=== PATIENT | male | born 1950 | race Caucasian/White ===

== ENCOUNTER 2017-05-09 19:09 | Inpatient (IN) | payer BC, MEDICARE, OTHER ==
[2017-05-09] MEDS ORDERED: Amiodarone 360 MG IVPREMIX* 360 MG/200 ML BAG IV ONE (19:51)
[2017-05-09 19:58] LABS: Hematocrit 46 % (42-52); Hemoglobin 15.6 g/dl (14.0-18.0); Mean Corpuscular HGB Conc 34 g/dl (31-36); Mean Corpuscular Hemoglobin 30 pg (27-31); Mean Corpuscular Volume 87 fL (80-94); Mean Platelet Volume 10 um3 (7.4-10.4); Red Blood Count 5.23 10^6/ul (4.0-5.4); Red Cell Distribution Width 15 % (10.5-15); White Blood Count 11.5 10^3/ul (3.5-10.8)
[2017-05-09 20:10] LABS: BUN/Creatinine Ratio 14.1 (8-20); Calcium 9.3 mg/dL (8.6-10.3); EGFR African American 106.2 (>60); EGFR Non-African American 82.6 (>60); Globulin 3.5 g/dL (2-4); Magnesium 1.9 mg/dL (1.9-2.7); Potassium 3.8 mmol/L (3.5-5.0); Total Bilirubin 0.5 mg/dL (0.2-1.0); Total Protein 7.5 g/dL (6.4-8.9)
[2017-05-09 20:12] LABS: Troponin I 0.01 ng/mL (<0.04)
--- NOTE | 2017-05-09 20:14 | ED ---
Jenni Maldonado Edward, scribed for Elder Marquez MD on 05/09/17 at 1936 . Dizziness - HPI Summary HPI Summary: 66 y/o male BIBA from [facility] c/o of dizzy spells for 3-4 days. Each spell lasts around 5-10 seconds. Patient has had 2-3 episodes today of around 2-3 seconds. Patient has never had these symptoms before. No relevant PMHx. Patient is a light every day smoker. - History Of Current Complaint Chief Complaint: EDDizziness Stated Complaint: XFER FROM [facility] Hx Obtained From: Patient Onset/Duration: Still Present Timing: Intermittent Episode Lasting - 5-10 seconds previously, 2-3 seconds today Character: Dizzy - Allergies/Home Medications Allergies/Adverse Reactions: Allergies Allergy/AdvReac Type Severity Reaction Status Date / Time No Known Allergies Allergy Verified 05/09/17 20:04 PMH/Surg Hx/FS Hx/Imm Hx Previously Healthy: Yes Cardiovascular History: Denies: Hx Myocardial Infarction Sensory History: Denies: Hx Deafness Opthamlomology History: Denies: Hx Legally Blind - Surgical History Surgery Procedure, Year, and Place: App2001 Infectious Disease History: Denies: Traveled Outside the [place] in Last 30 Days - Social History Hx Tobacco Use: Yes Smoking Status (MU): Light Every Day Tobacco Smoker Review of Systems Constitutional: Negative Eyes: Negative ENT: Negative Cardiovascular: Negative Respiratory: Negative Gastrointestinal: Negative Genitourinary: Negative Musculoskeletal: Negative Skin: Negative Neurological: Other - Intermittent dizziness Psychological: Normal All Other Systems Reviewed And Are Negative: Yes Physical Exam Triage Information Reviewed: Yes Vital Signs On Initial Exam: Initial Vitals Temp Pulse Resp BP Pulse Ox 98 F 87 20 156/84 95 05/09/17 19:26 05/09/17 19:26 05/09/17 19:26 05/09/17 19:26 05/09/17 19:26 Vital Signs Reviewed: Yes Appearance: Positive: No Pain Distress, Obese Skin: Positive: Warm Head/Face: Positive: Normal Head/Face Inspection Eyes: Positive: EOMI, [place]AS[place] ENT: Positive: Hearing grossly normal Neck: Positive: Supple, Nontender Respiratory/Lung Sounds: Positive: Clear to Auscultation, Breath Sounds Present Cardiovascular: Positive: RRR Abdomen Description: Positive: Nontender, Soft Bowel Sounds: Positive: Present Musculoskeletal: Positive: Strength/ROM Intact Neurological: Positive: Sensory/Motor Intact, Alert, Oriented to Person Place, Time, Normal Gait Psychiatric: Positive: Affect/Mood Appropriate Diagnostics - Vital Signs Vital Signs Temp Pulse Resp BP Pulse Ox 05/09/17 19:26 98 F 87 20 156/84 95 - Laboratory Lab Results: Lab Results 05/09/17 05/09/17 05/09/17 Range/Units 19:18 19:18 19:18 WBC 11.5 H (3.5-10.8) 10^3/ul RBC 5.23 (4.0-5.4) 10^6/ul Hgb 15.6 (14.0-18.0) g/dl Hct 46 (42-52) % MCV 87 (80-94) fL MCH 30 (27-31) pg MCHC 34 (31-36) g/dl RDW 15 (10.5-15) % Plt Count 259 (150-450) 10^3/ul MPV 10 (7.4-10.4) um3 Neut % (Auto) 71.3 (38-83) % Lymph % (Auto) 19.0 L (25-47) % [place] % (Auto) 7.0 (1-9) % Eos % (Auto) 1.2 (0-6) % Baso % (Auto) 1.5 (0-2) % Absolute Neuts (auto) 8.2 H (1.5-7.7) 10^3/ul Absolute Lymphs (auto) 2.2 (1.0-4.8) 10^3/ul Absolute Monos (auto) 0.8 (0-0.8) 10^3/ul Absolute Eos (auto) 0.1 (0-0.6) 10^3/ul Absolute Basos (auto) 0.2 (0-0.2) 10^3/ul Absolute Nucleated RBC 0.01 10^3/ul Nucleated RBC % 0.1 INR (Anticoag Therapy) 1.04 (0.89-1.11) Sodium 131 L (133-145) mmol/L Potassium 3.8 (3.5-5.0) mmol/L Chloride 102 (101-111) mmol/L Carbon Dioxide 22 (22-32) mmol/L Anion Gap 7 (2-11) mmol/L BUN 13 (6-24) mg/dL Creatinine 0.92 (0.67-1.17) mg/dL Est GFR ( Amer) 106.2 (>60) Est GFR (Non-Af Amer) 82.6 (>60) BUN/Creatinine Ratio 14.1 (8-20) Glucose 117 H (70-100) mg/dL Lactic Acid (0.5-2.0) mmol/L Calcium 9.3 (8.6-10.3) mg/dL Magnesium 1.9 (1.9-2.7) mg/dL Total Bilirubin 0.50 (0.2-1.0) mg/dL AST 33 (13-39) U/L ALT 39 (7-52) U/L Alkaline Phosphatase 53 (34-104) U/L Troponin I 0.01 (<0.04) ng/mL Total Protein 7.5 (6.4-8.9) g/dL Albumin 4.0 (3.2-5.2) g/dL Globulin 3.5 (2-4) g/dL Albumin/Globulin Ratio 1.1 (1-3) 05/09/17 Range/Units 19:18 WBC (3.5-10.8) 10^3/ul RBC (4.0-5.4) 10^6/ul Hgb (14.0-18.0) g/dl Hct (42-52) % MCV (80-94) fL MCH (27-31) pg MCHC (31-36) g/dl RDW (10.5-15) % Plt Count (150-450) 10^3/ul MPV (7.4-10.4) um3 Neut % (Auto) (38-83) % Lymph % (Auto) (25-47) % [place] % (Auto) (1-9) % Eos % (Auto) (0-6) % Baso % (Auto) (0-2) % Absolute Neuts (auto) (1.5-7.7) 10^3/ul Absolute Lymphs (auto) (1.0-4.8) 10^3/ul Absolute Monos (auto) (0-0.8) 10^3/ul Absolute Eos (auto) (0-0.6) 10^3/ul Absolute Basos (auto) (0-0.2) 10^3/ul Absolute Nucleated RBC 10^3/ul Nucleated RBC % INR (Anticoag Therapy) (0.89-1.11) Sodium (133-145) mmol/L Potassium (3.5-5.0) mmol/L Chloride (101-111) mmol/L Carbon Dioxide (22-32) mmol/L Anion Gap (2-11) mmol/L BUN (6-24) mg/dL Creatinine (0.67-1.17) mg/dL Est GFR ( Amer) (>60) Est GFR (Non-Af Amer) (>60) BUN/Creatinine Ratio (8-20) Glucose (70-100) mg/dL Lactic Acid 1.2 (0.5-2.0) mmol/L Calcium (8.6-10.3) mg/dL Magnesium (1.9-2.7) mg/dL Total Bilirubin (0.2-1.0) mg/dL AST (13-39) U/L ALT (7-52) U/L Alkaline Phosphatase (34-104) U/L Troponin I (<0.04) ng/mL Total Protein (6.4-8.9) g/dL Albumin (3.2-5.2) g/dL Globulin (2-4) g/dL Albumin/Globulin Ratio (1-3) Result Diagrams: 05/09/17 19:18 05/09/17 19:18 Lab Statement: Any lab studies that have been ordered have been reviewed, and results considered in the medical decision making process. - EKG 1 EKG Interpretation: 19:37 - Sinus rhythm, inferior infarct old Re-Evaluation - Re-Evaluation First Eval Comment: pt with documented episodes of sustained vtach at [facility], given amiodarone x 2, dizzy episodes for fewdays most likely due to arrhythmia, will place pt on amiodarone drip. Case d/w hospita;ist Dizzy Course/Dx - Diagnoses Provider Diagnoses: Ventricular arrhythmia - Critical Care Time Critical Care Time: 30-74 min Discharge - Discharge Plan Condition: Fair Disposition: ADMITTED TO [facility] documentation as recorded by the Jenni dhillon Edward accurately reflects the service I personally performed and the decisions made by , Elder Marquez MD.
[2017-05-09] MEDS ORDERED: Magnesium Sulfate 1 GM IV* 1 GM/100 ML BAG IV ONE (21:17)
[2017-05-09] MEDS ORDERED: Potassium Chlor TAB* 20 MEQ TAB.ER PO ONE (21:17)
[2017-05-09 22:26] LABS: TSH (Thyroid Stimulating Horm) 1.77 mcIU/mL (0.34-5.60)
[2017-05-09] MEDS: Heparin VIAL(*) 5000 UNITS/ML VIAL (FIVE THOUSAND) SUBCUT SCH (22:37)
[2017-05-09] MEDS ORDERED: Nicotine Inhaler* 10 MG AMP INH PRN (22:38)
[2017-05-09] MEDS ORDERED: Mouth Piece, Nicotine* 1 EACH CARTRIDGE INH ONE (23:00)
[2017-05-10] MEDS ORDERED: Metoprolol Tartrate IV* 1 MG/ML 5 ML VIAL ONE (00:20)
--- NOTE | 2017-05-10 00:33 | PN ---
Progress Note - Progress Note Date of Service: 05/10/17 Note: Nursing called reporting sustained asymptomatic VT in the 170s. Upon arrival, Mr Patiño is AA&O x3 without complaint, specifically no chest discomfort, SOB, palpitations, sweating, N/V, or light-headedness. During my evaluation, he spontaneously converted to NSR with recheck ECG negative for ischemia. His Mg++ & K+ were suboptimal at admission are are being replaced. He has received 2 boluses of amiodarone and is on an amiodarone GTT. Marita Mcdonald MD cardiology apprised of situation, advised 5mg IV metoprolol & start metoprolol XL 25mg daily. Of interest, his VT began within seconds of his first puff of nicotine inhaler which will be D/C'd, no other nicotine replacement. Repeat troponin & continue to trend.
[2017-05-10] MEDS ORDERED: Metoprolol Tartrate IV* 1 MG/ML 5 ML VIAL IV ONE (00:34)
[2017-05-10] MEDS: Amiodarone 360 MG IVPREMIX* 360 MG/200 ML BAG IV SCH ×2 (02:33→10:32)
--- NOTE | 2017-05-10 04:20 | HP ---
CC: [facility] * HISTORY AND PHYSICAL: DATE OF ADMISSION: 05/09/17 PRIMARY CARE PROVIDER: [facility] office. ATTENDING PHYSICIAN: Garcia Lezama MD * (dictated by Keturah Connelly NP). CHIEF COMPLAINT: Dizziness with associated shortness of breath. HISTORY OF PRESENT ILLNESS: Mr. Patiño is a 66-year-old male who reports no significant past medical history, who initially presented to [facility] with complaints of dizziness and shortness of breath. The patient reports that over the last 3 to 4 days, he has been having intermittent episodes lasting for 3 to 4 seconds of dizziness with associated shortness of breath. At the longest , they have lasted for 10 seconds. Due to these coming in a greater frequency, the patient presented to [facility] for further evaluation of his symptoms. While at the [facility], the patient felt the symptom coming on and was able to be hooked up to an EKG and was noted to have V-tach. He received 2 bolus doses of 150 mg of amiodarone while at [facility] and was transported via EMS to [facility]. While in the emergency room at [facility], the patient had labs that were fairly unremarkable. He had an EKG showing sinus rhythm with a rate of 82 and no acute signs of ischemia. The patient had a chest x-ray while at [facility] , noting a possible mild bibasilar hypoaeration. The hospitalists were asked to evaluate this patient for admission. The patient denies any fever, chills, chest pain, palpitations, nausea, vomiting, diarrhea, diaphoresis, or urinary symptoms. PAST MEDICAL HISTORY: None. PAST SURGICAL HISTORY: 1. Status post appendectomy in 2001. 2. Status post right cataract extraction. HOME MEDICATIONS: None. ALLERGIES: No known drug allergies. FAMILY HISTORY: The patient's mother and father both had a history of coronary artery disease. The patient's mother and brother had a history of diabetes mellitus. The patient's father had a history of metastatic kidney carcinoma. SOCIAL HISTORY: The patient smoked half a pack a day for the last 50 years. The patient denies alcohol, recreational drug use. He is retired. His sister Carmencita Grullon will be his surrogate decision maker in the event he is unable to make decisions for himself. REVIEW OF SYSTEMS: I performed a 14-point review of systems. All the pertinent positives and negatives are mentioned in the history of present illness. The remaining review of systems are negative. PHYSICAL EXAMINATION GENERAL APPEARANCE: The patient is alert, pleasant, appears to be in no acute distress. VITAL SIGNS: Temperature 97, heart rate 86, respiratory rate 19, O2 sats 93% on room air, blood pressure 156/72. HEENT: Normocephalic, atraumatic. Pupils are equal and reactive to light. Extraocular movements are intact. NECK: Supple. RESPIRATORY: There is no accessory muscle use and the lungs are clear to auscultation bilaterally. CARDIOVASCULAR: Regular rate and rhythm. S1 and S2 are present. There is no murmurs, rubs, or gallops heard. ABDOMEN: Soft, large, nondistended, and nontender. There are bowel sounds present x4. EXTREMITIES: There is trace to 1+ bilateral lower extremity edema. DP and PT pulses are 2+ and symmetric. MUSCULOSKELETAL: There is no clubbing or cyanosis noted. The patient exhibits good strength in all extremities. NEUROLOGIC: The patient is alert and oriented x4. Cranial nerves II through XII are grossly intact. PSYCHOLOGICAL: The patient is calm and cooperative. SKIN: The patient has chronic lymphedema changes to bilateral lower extremity with dry skin in addition to dryness to his face and neck. DIAGNOSTIC STUDIES/LABORATORY DATA: Sodium 131, potassium 3.8, chloride 102, CO2 22, BUN 13, creatinine 0.92, glucose 119. Magnesium 1.9, troponin 0.01. BNP 108. White blood cell count 11.5, hemoglobin 15.6, hematocrit 46, and platelet count 259. EKG shows a sinus rhythm with rate of 82 and no acute signs of ischemia. There are no previous EKGs for comparison. Chest x-ray from [facility] from today with radiologist's impression shows a possible mild bibasilar hypoaeration. IMPRESSION: Mr. Patiño is a 66-year-old male with no significant past medical history, who is morbidly obese, who presents to the emergency room from [facility] after presenting there with complaints of dizziness and shortness of breath and being found to have symptomatic V-tach. He will be admitted as an inpatient for symptomatic V-tach. ASSESSMENT/PLAN: 1. Symptomatic ventricular tachycardia. The patient is currently in sinus rhythm. We will continue him on the amiodarone drip protocol of 1 mg an hour for 6 hours followed by 0.5 mg an hour for 18 hours. We will get an echocardiogram. We will also check the patient's TSH. His potassium is 3.8. We will give him potassium replacement to get him up over 4 and his magnesium is 1.9 and we will give him magnesium replacement to get him up over 2. We will trend the patient's troponins. We will check a TSH. Cardiology has been notified that the patient will consult on him in the morning. 2. Tobacco abuse: We will provide the patient with nicotine replacement. The patient has been encouraged to stop smoking. 3. Fluids, Electrolytes, and Nutrition: The patient will be on a heart healthy diet. 4. Code status: Full code. 5. DVT prophylaxis: The patient is a high risk and will be placed on subcutaneous heparin. 6. Disposition: Inpatient. TIME SPENT: Time for this admission was 60 minutes; greater than half of that was spent [id number] with the patient and sister discussing medications, past medical history, and the events leading up to his arrival today and performing a physical examination. The case has been reviewed with the attending, Dr. Lezama, who agrees with the plan of care. Reviewed by HANNY HERNANDEZ 05/13/17 1504 [id number]/[facility] #: [id number] BOBBY
[2017-05-10] MEDS: Heparin VIAL(*) 5000 UNITS/ML VIAL (FIVE THOUSAND) SUBCUT SCH ×3 (06:44→22:07)
[2017-05-10 07:15] LABS: BUN/Creatinine Ratio 11.6 (8-20); Calcium 9.1 mg/dL (8.6-10.3); EGFR African American 102.3 (>60); EGFR Non-African American 79.6 (>60); Magnesium 2.1 mg/dL (1.9-2.7); Potassium 4.4 mmol/L (3.5-5.0)
[2017-05-10 07:17] LABS: Troponin I 0.01 ng/mL (<0.04)
[2017-05-10] MEDS ORDERED: Perflutren Lipid Microsphere* 3 ML VIAL ONE (07:36)
--- NOTE | 2017-05-10 08:04 | PN ---
Subjective Date of Service: 05/10/17 Interval History: Mr. Patiño is a 66 yo male, who follows with the [facility] and denies any previously known PMH, who presented with intermittent dizziness over the past 4 days. He denies every having chest pain, SOB, or "any pain ever." He reports that his BLE look roughly the same; they are often swollen and he states that the swelling is "sometimes bigger on the right, sometimes on the left." He has attributed the degree of swelling to the amount of salt he eats, and as such, has tried to cut back on his sodium. He has areas of dry scaly skin to his face , neck, arms and legs that he says is "just dry skin," denying any known hx of psoriasis, dermatitis. Mr. Patiño had a 6 minute episode of V-tach overnight, for which he was asymptomatic. Patient seen and examined at bedside. Denies dizziness, CP, SOB, abd pain, n/v, leg pain. No other acute concerns. Telemetry: Currently SR 72 Family History: Unchanged from Admission Social History: Unchanged from Admission Past Medical History: Unchanged from Admission Objective Active Medications: Heparin Sodium (Porcine) (Heparin Vial(*)) 5,000 units SUBCUT Q8HR [facility] Last Admin: 05/10/17 06:44 Dose: 5,000 units Amiodarone HCl (Nexterone 360 Mg/200 Ml Ivpremix*) 360 mg in 200 mls @ 16.666 mls/hr IV .Q24H [facility] PRN Reason: 0.5 MG/MIN Stop: 05/10/17 20:30 Last Admin: 05/10/17 02:33 Dose: 16.7 mls/hr Metoprolol Succinate (Toprol Xl Tab*) 25 mg PO DAILY [facility] Vital Signs 05/09/17 05/09/17 05/09/17 21:00 21:23 21:27 Temperature 97 F Pulse Rate 85 86 86 Respiratory 15 16 16 Rate Blood Pressure 143/92 143/92 (mmHg) O2 Sat by Pulse 95 95 Oximetry 05/09/17 05/09/17 05/09/17 21:38 21:44 21:45 Temperature 98 F Pulse Rate 81 85 Respiratory 15 19 Rate Blood Pressure 165/89 153/80 156/72 (mmHg) O2 Sat by Pulse 93 93 Oximetry 05/09/17 05/09/17 05/09/17 22:00 22:15 22:30 Temperature Pulse Rate 82 79 80 Respiratory 18 20 19 Rate Blood Pressure 153/80 153/67 136/70 (mmHg) O2 Sat by Pulse 93 93 92 Oximetry 05/09/17 05/09/17 05/09/17 22:45 23:00 23:16 Temperature Pulse Rate 80 77 Respiratory 15 17 Rate Blood Pressure 142/68 133/67 150/106 (mmHg) O2 Sat by Pulse 92 90 Oximetry 05/09/17 05/09/17 05/10/17 23:35 23:45 00:00 Temperature 98.2 F Pulse Rate 92 77 78 Respiratory 24 17 16 Rate Blood Pressure 143/84 142/82 (mmHg) O2 Sat by Pulse 92 94 94 Oximetry 05/10/17 05/10/17 05/10/17 00:02 00:10 00:15 Temperature Pulse Rate 77 96 88 Respiratory 14 24 16 Rate Blood Pressure 123/57 125/97 155/84 (mmHg) O2 Sat by Pulse 94 94 95 Oximetry 05/10/17 05/10/17 05/10/17 00:32 00:45 01:00 Temperature Pulse Rate 78 70 69 Respiratory 20 13 16 Rate Blood Pressure 126/77 122/80 120/77 (mmHg) O2 Sat by Pulse 94 95 94 Oximetry 05/10/17 05/10/17 05/10/17 01:15 01:30 01:45 Temperature Pulse Rate 68 71 79 Respiratory 18 15 21 Rate Blood Pressure 126/76 122/77 118/71 (mmHg) O2 Sat by Pulse 93 94 94 Oximetry 05/10/17 05/10/17 05/10/17 02:00 02:30 02:45 Temperature Pulse Rate 66 70 66 Respiratory 16 19 22 Rate Blood Pressure 120/74 122/68 113/58 (mmHg) O2 Sat by Pulse 94 93 93 Oximetry 05/10/17 05/10/17 05/10/17 02:58 03:00 03:15 Temperature Pulse Rate 67 67 Respiratory 17 18 17 Rate Blood Pressure 111/65 104/59 (mmHg) O2 Sat by Pulse 93 93 Oximetry 05/10/17 05/10/17 05/10/17 03:30 03:45 03:50 Temperature 97.3 F Pulse Rate 64 69 Respiratory 17 15 Rate Blood Pressure 114/62 123/75 (mmHg) O2 Sat by Pulse 95 94 Oximetry 05/10/17 05/10/17 05/10/17 04:00 04:15 04:30 Temperature Pulse Rate 73 66 65 Respiratory 20 13 20 Rate Blood Pressure 121/69 120/73 123/71 (mmHg) O2 Sat by Pulse 94 94 94 Oximetry 05/10/17 05/10/17 05/10/17 04:45 05:00 05:15 Temperature Pulse Rate 71 63 71 Respiratory 19 18 18 Rate Blood Pressure 127/78 113/63 132/80 (mmHg) O2 Sat by Pulse 94 94 94 Oximetry 05/10/17 05/10/17 05/10/17 05:30 05:45 06:00 Temperature Pulse Rate 72 86 69 Respiratory 17 21 20 Rate Blood Pressure 125/84 132/80 131/71 (mmHg) O2 Sat by Pulse 94 91 93 Oximetry 05/10/17 05/10/17 05/10/17 06:15 06:45 07:00 Temperature Pulse Rate 76 69 69 Respiratory 19 17 21 Rate Blood Pressure 129/77 130/75 130/74 (mmHg) O2 Sat by Pulse 95 93 94 Oximetry Oxygen Devices in Use Now: None Appearance: Older male, sitting up in bed, NAD Eyes: PERRLA Ears/Nose/Mouth/Throat: Clear Oropharnyx, Mucous Membranes Moist Neck: NL Appearance and Movements; NL JVP Respiratory: Symmetrical Chest Expansion and Respiratory Effort, Clear to Auscultation Cardiovascular: NL Sounds; No Murmurs; No JVD, RRR Abdominal: NL Sounds; No Tenderness; No Distention Extremities: No Clubbing, Cyanosis, - - 2+ pitting edema to BLE Skin: No Rash or Ulcers, - - chronic venous/lymphedema changes to BLE (R>L), dry scaling skin to face, neck, arms Neurological: Alert and Oriented x 3, NL Muscle Strength and Tone Lines/Tubes/Other Access: Clean, Dry and Intact Peripheral IV Result Diagrams: 05/09/17 19:18 05/10/17 06:50 Additional Lab and Data: Lab Results 05/09/17 05/09/17 05/09/17 Range/Units 19:18 19:18 19:18 WBC 11.5 H (3.5-10.8) 10^3/ul RBC 5.23 (4.0-5.4) 10^6/ul Hgb 15.6 (14.0-18.0) g/dl Hct 46 (42-52) % MCV 87 (80-94) fL MCH 30 (27-31) pg MCHC 34 (31-36) g/dl RDW 15 (10.5-15) % Plt Count 259 (150-450) 10^3/ul MPV 10 (7.4-10.4) um3 Neut % (Auto) 71.3 (38-83) % Lymph % (Auto) 19.0 L (25-47) % [place] % (Auto) 7.0 (1-9) % Eos % (Auto) 1.2 (0-6) % Baso % (Auto) 1.5 (0-2) % Absolute Neuts (auto) 8.2 H (1.5-7.7) 10^3/ul Absolute Lymphs (auto) 2.2 (1.0-4.8) 10^3/ul Absolute Monos (auto) 0.8 (0-0.8) 10^3/ul Absolute Eos (auto) 0.1 (0-0.6) 10^3/ul Absolute Basos (auto) 0.2 (0-0.2) 10^3/ul Absolute Nucleated RBC 0.01 10^3/ul Nucleated RBC % 0.1 INR (Anticoag Therapy) 1.04 (0.89-1.11) Sodium 131 L (133-145) mmol/L Potassium 3.8 (3.5-5.0) mmol/L Chloride 102 (101-111) mmol/L Carbon Dioxide 22 (22-32) mmol/L Anion Gap 7 (2-11) mmol/L BUN 13 (6-24) mg/dL Creatinine 0.92 (0.67-1.17) mg/dL Est GFR ( Amer) 106.2 (>60) Est GFR (Non-Af Amer) 82.6 (>60) BUN/Creatinine Ratio 14.1 (8-20) Glucose 117 H (70-100) mg/dL Lactic Acid (0.5-2.0) mmol/L Calcium 9.3 (8.6-10.3) mg/dL Magnesium 1.9 (1.9-2.7) mg/dL Total Bilirubin 0.50 (0.2-1.0) mg/dL AST 33 (13-39) U/L ALT 39 (7-52) U/L Alkaline Phosphatase 53 (34-104) U/L Troponin I 0.01 (<0.04) ng/mL Total Protein 7.5 (6.4-8.9) g/dL Albumin 4.0 (3.2-5.2) g/dL Globulin 3.5 (2-4) g/dL Albumin/Globulin Ratio 1.1 (1-3) 05/09/17 Range/Units 19:18 WBC (3.5-10.8) 10^3/ul RBC (4.0-5.4) 10^6/ul Hgb (14.0-18.0) g/dl Hct (42-52) % MCV (80-94) fL MCH (27-31) pg MCHC (31-36) g/dl RDW (10.5-15) % Plt Count (150-450) 10^3/ul MPV (7.4-10.4) um3 Neut % (Auto) (38-83) % Lymph % (Auto) (25-47) % [place] % (Auto) (1-9) % Eos % (Auto) (0-6) % Baso % (Auto) (0-2) % Absolute Neuts (auto) (1.5-7.7) 10^3/ul Absolute Lymphs (auto) (1.0-4.8) 10^3/ul Absolute Monos (auto) (0-0.8) 10^3/ul Absolute Eos (auto) (0-0.6) 10^3/ul Absolute Basos (auto) (0-0.2) 10^3/ul Absolute Nucleated RBC 10^3/ul Nucleated RBC % INR (Anticoag Therapy) (0.89-1.11) Sodium (133-145) mmol/L Potassium (3.5-5.0) mmol/L Chloride (101-111) mmol/L Carbon Dioxide (22-32) mmol/L Anion Gap (2-11) mmol/L BUN (6-24) mg/dL Creatinine (0.67-1.17) mg/dL Est GFR ( Amer) (>60) Est GFR (Non-Af Amer) (>60) BUN/Creatinine Ratio (8-20) Glucose (70-100) mg/dL Lactic Acid 1.2 (0.5-2.0) mmol/L Calcium (8.6-10.3) mg/dL Magnesium (1.9-2.7) mg/dL Total Bilirubin (0.2-1.0) mg/dL AST (13-39) U/L ALT (7-52) U/L Alkaline Phosphatase (34-104) U/L Troponin I (<0.04) ng/mL Total Protein (6.4-8.9) g/dL Albumin (3.2-5.2) g/dL Globulin (2-4) g/dL Albumin/Globulin Ratio (1-3) Microbiology and Other Data: Microbiology 05/09/17 21:45 Nasal Screen MRSA (PCR)(BONIFACIO) - Final Nasal Mrsa Negative Assess/Plan/Problems-Billing Assessment: Mr. Patiño is a 66 yo male with a PMH of tobacco abuse who presented to the ED on 05/09 with concern for dizziness that is secondary to ventricular tachycardia. - Patient Problems (1) Ventricular tachycardia Code(s): I47.2 - VENTRICULAR TACHYCARDIA Comment: Currently in SR 6 minute episode of V-tach overnight that was asymptomatic Patient spontaneously converted, cardiology recommended IV Lopressor and start Toprol XL Continue amiodarone gtt, Mg+ and K+ replacements Cardiology consult today (2) Tobacco abuse Code(s): Z72.0 - TOBACCO USE Comment: Smoking cessation education provided. Patient previously ordered nicotine inhaler; patient went into v-tach with first use, prompting discontinuation of the device. (3) Bilateral lower extremity edema Code(s): R60.0 - LOCALIZED EDEMA Comment: Appears to be stasis edema of lower extremities Patient does not feel they are always swollen, may be exacerbated by IVF and potential HF. Suspect that this is chronic, patient was previously prescribed diuretic. Obtain records from [facility] for further clarification and previous med list. TTE pending (4) DVT prophylaxis Comment: SQ heparin Status and Disposition: Inpatient admission. Cardiology consult today. Anticipate dc in 2-4 days.
--- NOTE | 2017-05-10 08:34 | ECHO ---
Patient: TREE DE LA CRUZ [facility] Rec#: [id number] : 1950 Date: 05/10/2017 Age: 66y Height: 180.34 cm / 71.0 in Weight: 117.93 kg / 259.9 lbs Sex: M BSA: 2.36 Room#: ICU 1 Admit Date#: 05/09/2017 Type: Inpatient Referring: Keturah Galvan NP Reading: Doug Luna MD Community Outreach Coordinator: Sienna Pierre RD,RDMS Transthoracic Echocardiogram Indication: Vtach BP: 129/77 HR: 69 Rhythm: NSR Findings History: SOB, smoker Technical Comments: The study is technically limited due to poor acoustic windows. The study is technically limited due to the patient's smoking history. Completed 0825 Left Ventricle: The left ventricular chamber size is moderately dilated. Mild concentric left ventricular hypertrophy is observed. Basal interventricular septum shows moderate thickening. There are multiple regional wall motion abnormalities. There is moderately decreased left ventricular systolic function. The estimated ejection fraction is 30-35%. Abnormal left ventricular diastolic function is observed. The mid anterior, mid inferior, and apical inferior wall segments are hypokinetic (score 2). The apical anterior wall segment is akinetic (score 3). Overall wallmotion score index is 2.25 Left Atrium: The left atrium is moderately dilated. Right Ventricle: The right ventricle wall thickness is mildly increased. The right ventricular cavity size is normal. The right ventricular global systolic function is mildly reduced. Right Atrium: The right atrial cavity size is normal. Aortic Valve: There is no evidence of aortic valve thickening. Systolic excursion of the aortic valve is normal. There is no evidence of aortic regurgitation. There is no evidence of aortic stenosis. Mitral Valve: The mitral valve leaflets do not appear thickened. There is mild to moderate mitral regurgitation. There is no evidence of mitral stenosis. Tricuspid Valve: The tricuspid valve leaflets are not thickened. There is trace tricuspid regurgitation. Unable to estimate the right ventricular systolic pressure. Pulmonic Valve: The pulmonic valve structure is not well visualized. Pericardium: There is no significant pericardial effusion. Aorta: The ascending aorta is not well visualized. The aortic arch is not well visualized. The aortic root is normal in size. Pulmonary Artery: The main pulmonary artery is not well visualized. Venous: The inferior vena cava appears normal in size. There is a greater than 50% respiratory change in the inferior vena cava dimension. Contrast: Definity was used to optimize study. A total of 10 ml was used Summary: There was not any prior study for comparison. Conclusions Mild concentric left ventricular hypertrophy is observed. There is moderately decreased left ventricular systolic function. There are multiple regional wall motion abnormalities. The estimated ejection fraction is 30-35%. The mid anterior, mid inferior, and apical inferior wall segments are hypokinetic (score 2). The apical anterior wall segment is akinetic (score 3). The right ventricular global systolic function is mildly reduced. Systolic excursion of the aortic valve is normal. There is no evidence of aortic stenosis. There is mild to moderate mitral regurgitation. There is trace tricuspid regurgitation. Unable to estimate the right ventricular systolic pressure. There is no significant pericardial effusion. The ascending aorta is not well visualized. Measurements Name Value Normal Range RVIDd (AP) 2D 2.9 cm (0.9 - 2.6) RVDdMajor (2D) 3.5 cm (2.2 - 4.4) RAd ISD 4CH 4 cm (3.4 - 4.9) RA (A4C)W 3.7 cm (2.9 - 4.6) IVSd (2D) 1.5 cm (0.6 - 1) LVPWd (2D) 1.1 cm (0.6 - 1) LVIDd (2D) 6.4 cm (3.6 - 5.4) LVIDs (2D) 4.6 cm - LV FS (2D) 28 % (25 - 45) Aortic Annulus 2.1 cm (1.4 - 2.6) Ao root diameter (2D) 2.9 cm (2.1 - 3.5) LA dimension (AP) 2D 5 cm (2.3 - 3.8) LAd ISD 4CH 5.6 cm (2.9 - 5.3) LA ISD 4CH W 4.9 cm (2.5 - 4.5) Name Value Normal Range LA ESV SP 4CH (A/L) 83.42 ml - LA ESV SP 2CH (A/L) 106.46 ml - LA ESV BP (A/L) 98.05 ml - LA ESV BP (A/L) index 41.6 ml/m2 - LA ESV SP 4CH (MOD) 78.87 ml - LA ESV SP 2CH (MOD) 99.09 ml - Name Value Normal Range MV E-wave Vmax 1 m/sec - MV deceleration time 148.3 msec - MV A-wave Vmax 0.7 m/sec - MV E:A ratio 1.4 ratio - LV septal e' Vmax 0.06 m/sec - LV lateral e' Vmax 0.08 m/sec - LV E:e' septal ratio 17 ratio - LV E:e' lateral ratio 12.5 ratio - Name Value Normal Range AV Vmax 1 m/sec - AV VTI 21 cm - AV peak gradient 4 mmHg - AV mean gradient 2.2 mmHg - LVOT Vmax 0.7 m/sec - LVOT VTI 14 cm - LVOT peak gradient 1.8 mmHg - LVOT mean gradient 0.7 mmHg - KEAGAN Vmax 0.7 m/sec - Name Value Normal Range MV Vmax 1 m/sec - MV VTI 28.1 cm - MV peak gradient 4 mmHg - MV mean gradient 1.6 mmHg - MV PHT 74 msec - MVA (PHT) 3 cm2 - Name Value Normal Range RAP 8 mmHg - IVC diameter 2.1 cm - Name Value Normal Range PV Vmax 0.7 m/sec - PV peak gradient 2 mmHg - Wallmotion BAS Not Seen BA Not Seen BAL Not Seen SINCERE Not Seen BI Not Seen BIS Not Seen MAS Not Seen MA Hypokinetic MAL Not Seen MIL Not Seen GA Hypokinetic MIS Not Seen Not Seen AA Akinetic AL Not Seen AI Hypokinetic APEX Akinetic
[2017-05-10] MEDS ORDERED: Metoprolol Succinate XL TAB* 25 MG PO SCH (09:00)
[2017-05-10] MEDS ORDERED: NS 0.9% 1000 ML* 1,000 ML IV SCH (09:00)
[2017-05-10] MEDS ORDERED: Diazepam TAB(*) 5 MG PO ONE (09:50)
[2017-05-10] MEDS ORDERED: diPHENhydraMINE PO* 25 MG PO ONE (09:50)
[2017-05-10] MEDS ORDERED: Midazolam* 1 MG/ML 5 ML VIAL (5 MG) ONE (10:51)
[2017-05-10] MEDS ORDERED: fentaNYL* 50 MCG/ML 2 ML VIAL (100 MCG VIAL) ONE (10:51)
[2017-05-10] MEDS ORDERED: Iohexol 350 (CONTRAST) 200 ML MDV IV ONE (10:51)
[2017-05-10] MEDS ORDERED: Lidocaine 1% INJ* 10 MG/ML 30 ML SDV ONE (10:51)
[2017-05-10] MEDS ORDERED: Heparin 2 UNITS/ML IVPREMIX* 2,000 ML IV ONE (10:51)
[2017-05-10] MEDS ORDERED: Heparin 2 UNITS/ML IVPREMIX* 1,000 ML IV ONE (11:35)
[2017-05-10] MEDS ORDERED: oxyCODONE/Acetamin 5/325 MG* TAB PO PRN (12:23)
--- NOTE | 2017-05-10 16:07 | PN ---
Hospitalist Progress Note Patient with significant left main disease seen on cardiac catheterization. Plan for transfer to [facility] in the morning. No c/o CP, SOB, dizziness , or other concerns at this time. Patient aware and in agreement with plan.
--- NOTE | 2017-05-10 16:08 | CONS ---
CARDIOLOGY CONSULTATION NOTE: DATE OF CONSULT: 05/10/17 INDICATION FOR CONSULT: Wide complex tachycardia. HISTORY OF PRESENT ILLNESS: The patient is a 66-year-old gentleman with very little past medical history, who came to the [facility] because of 4 days of episodic dizziness. The patient states that he was feeling well up until about 4 days ago when he started having these episodes of dizziness. He said they would last from 10 to 30 seconds in duration. He denied any syncope. He denied any chest pain. He denies any recent changes in his medical status. The patient has no cardiac history, no history of hypertension. The patient came to the [facility] where he was noted to have runs of wide complex tachycardia that looked to be SVT with aberrancy; however, ventricular tachycardia could not be excluded. He was transferred to [facility] and started on an amiodarone drip this morning. The patient is in normal sinus rhythm. He denies any symptoms. PAST MEDICAL HISTORY: None. PAST SURGICAL HISTORY: Appendectomy in 2001. Cataract surgery in the past. MEDICATIONS: None. ALLERGIES: None. FAMILY HISTORY: Has a history of coronary artery disease both in his mother and father. No history of cardiac arrhythmias. SOCIAL HISTORY: He is a smoker, he smokes half a pack a day for over 50 years. He denies alcohol use. He is retired. He lives by himself. PHYSICAL EXAM: Height is 5 feet 11 inches, weight 285 pounds, blood pressure 130/71, heart rate is 77, respiratory rate is 17, oxygen saturation is 94% on 2 L, temperature 98.4. Sclerae anicteric. Oropharynx is pink without erythema. Carotids are 2+ without bruits. JVD is normal. Thyroid is normal. Cardiac Exam: S1 and S2 without any murmurs, rubs, or gallops. PMI is difficult to assess. Lungs are clear to auscultation. There is no dullness to percussion. Abdomen is obese, soft, nontender, and nondistended with normoactive bowel sounds. Extremities: Show 2+ both pitting and non-pitting edema. He has 2+ pulses in his dorsalis pedis, popliteal, and femoral arteries. The patient is awake, alert, and oriented. He moves all 4 extremities equally. DIAGNOSTIC STUDIES/LAB DATA: CBC within normal limits. Chemistry is within normal limits. BUN 11, creatinine 0.95, troponin levels are negative x3. TSH 1.77. An echocardiogram today demonstrates mildly to moderately reduced LV systolic function, ejection fraction of 30% to 35%. He does have akinesis of the apex. He has hypokinesis of the inferior wall. No significant valvular abnormalities. His EKG today demonstrates a normal sinus rhythm at 81 beats per minute. His QT interval corrected as 473. IMPRESSION: This is a 66-year-old gentleman without significant past medical history, who came to the emergency room in [facility] with episodes of palpitations and lightheadedness. The patient was found to be in wide complex tachycardia with a stable blood pressure. He has been on amiodarone drip overnight. Today, he is in normal sinus rhythm. His QT interval is slightly prolonged but that could be due to the amiodarone infusion. His echocardiogram does show LV dysfunction with focal wall motion abnormalities. In general, I think his wide complex tachycardia is a supraventricular tachycardia. It has a very sharp initiation of the QRS complex. Because of his age, history of smoking, and LV dysfunction, I think the patient should undergo a cardiac catheterization to rule out significant coronary artery disease as a cause for his arrhythmias. Further recommendations pending results of his cardiac catheterization and further evaluation. The patient's laboratory studies are within normal limits. His EKG does not show any significant prolongation of the QT interval. [id number]/[facility] #: [id number] BOBBY
--- NOTE | 2017-05-10 16:48 | TRS ---
CC: [facility]* DATE OF ADMISSION: 05/09/2017. DATE OF TRANSFER: 05/11/2017. PROVIDER: Prateek Smith NP. ATTENDING PHYSICIAN: Dr. Mt Carrera * (as dictated by Prateek Smtih NP). CONSULTING PHYSICIAN: Dr. Doug Luna, Cardiology. PRIMARY CARE PHYSICIAN: [facility] [place], [place]. PRIMARY DISCHARGE DIAGNOSES: 1. Symptomatic ventricular tachycardia. 2. 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 SECONDARY DISCHARGE DIAGNOSES: 1. Bilateral lower extremity edema appears to be chronic lymphedema and venous stasis changes. 2. Tobacco abuse. MEDICATIONS AT THE TIME OF TRANSFER: 1. Subcu Heparin 5000 units q.8 hours. 2. Toprol XL 25 mg daily. 3. Eucerin cream one application topical t.i.d. to bilateral lower extremities. 4. Nystatin topical powder one application topical t.i.d. to affected areas. 5. Percocet one tab q.6 hours prn. 6. Normal saline 75 ml an hour. 7. The patient is completing an Amiodarone drip under 24 hours which will be complete prior to transfer. DIAGNOSTIC TESTING DURING THIS ADMISSION: Transthoracic echocardiogram: Conclusions: Mild concentric left ventricular hypertrophy is observed. There is moderately decreased left ventricular systolic function. There are multiple regional wall motion abnormalities. The estimated ejection fraction is 30 to 35 percent. The mid anterior, mid inferior, and apical inferior wall segments are hypokinetic. The apical anterior wall segment is akinetic. The right ventricular global systolic function is mildly reduced. Systolic excursion of the aortic valve is normal. There is no evidence of aortic stenosis. There is mild to moderate mitral regurgitation. There is trace tricuspid regurgitation. Unable to estimate the right ventricular systolic pressure. There is no significant pericardial effusion. The ascending aorta is not well visualized. HOSPITAL COURSE OF STAY: For full details, please refer to the history and physical provided by Keturah Carvalho NP on 05/09/2017. In summary, Mr. Patiño is a 66-year-old male who initially presented to [facility] with complaints of dizziness and shortness of breath that has been occurring over the last three to four days. He reports having intermittent episodes lasting for three to four seconds of dizziness with associated dyspnea. They have lasted up to ten seconds at a time. As they have been becoming in greater frequency, the patient presented to [facility] and it was there that they noted that the patient was in ventricular tachycardia. He did receive two boluses of Amiodarone and was transported to [facility] for further evaluation and treatment. The patient was in sinus rhythm upon arrival here and started on an Amiodarone drip protocol of 1 mg an hour for six hours, followed by 0.5 mg an hour for 18 hours. An echocardiogram was done with results as previously mentioned. We did also replete his magnesium and potassium as that was 3.8 and 1.9 respectively. Overnight, the patient did go back into ventricular tachycardia, but was asymptomatic during the episode. Of note, this did occur after he started using his nicotine inhaler. This medication was DC'd. The following morning, he did have the echocardiogram and then was taken to the cath lab manager by Dr. Luna of Cardiology. Please refer to Dr. Luna's note and consultation. The patient's cardiac cath revealed concern for significant left main disease requiring cardiothoracic evaluation and intervention. Dr. Luna spoke with Dr. Zamudio of [facility] who will accept the patient to the Cardiothoracic ICU. At most recent assessment, the patient is lying in the hospital bed in no acute distress. Vital signs were stable with a blood pressure of 135/85, heart rate of 80, respiratory rate of 20, O2 saturation is 95 percent on 2 liters nasal cannula and last temperature was 98.3. He was without complaint at this time, denying any dizziness, shortness of breath, or chest pain. He is aware of these findings and in agreement with transfer to the facility. CONCERNS AT TRANSFER: Mr. Patiño will be transferred on 05/11/2017 to [facility] and will be received by attending physician Dr. Zamudio of Cardiothoracic Surgery. DIET: Heart-healthy diet. The patient will be NPO after midnight. ACTIVITY: As tolerated. CONDITION: Guarded. OTHER FOLLOW-UP NEEDS: I suspect the patient has poor outpatient follow-up as he states that he sees whoever he an at the [facility]. The records from the [facility] that were requested show that he has not been seen by a primary care provider since 2012. The patient previously reports being on a diuretic, but does not know the name and has not been on it for several years. He has not been adherent to any previous medication regimens it seems and will require [facility] which I did talk to the patient about. DISPOSITION: To [facility]. TIME SPENT: Time spent on this transfer was approximately 60 minutes. Again, this is only a brief summary of the patient's hospital course of stay. Please refer to the full medical record. If there are any other questions or concerns, please feel free to contact me at . PRATEEK SMITH NP [id number]/[facility] #: [id number] BOBBY
[2017-05-10] MEDS: Nystatin TOP POWDER* 15 GM BTL TOPICAL SCH ×2 (17:01→22:07)
[2017-05-10] MEDS: Moisturizing CREAM* 113 GM JAR TOPICAL SCH ×2 (17:01→22:08)
--- NOTE | 2017-05-10 17:30 | CATH ---
CARDIAC CATHETERIZATION: DATE OF PROCEDURE: 05/10/17 INDICATION FOR PROCEDURE: Ventricular tachycardia and cardiomyopathy. PROCEDURE: Cardiac catheterization including left ventriculogram, left heart catheterization, coronary angiography, abdominal aortography. HISTORY: The patient is a 66-year-old gentleman with very little past medical history who went to [facility] with palpitations and lightheadedness. He was found to have wide complex tachycardia. The patient was given IV amiodarone and converted back to normal sinus rhythm. An echocardiogram today demonstrated moderately reduced LV systolic function, ejection fraction of 30% to 35% with inferior wall akinesis. Cardiac catheterization was recommended for evaluation of coronary artery disease. DESCRIPTION OF PROCEDURE: The patient was brought to the cardiac catheterization lab in a fasting state. Informed consent had been obtained prior to the procedure. All labs were reviewed. The patient was placed supine on the catheterization table. Both femoral areas were cleaned and draped in usual fashion. 1% lidocaine was used for local anesthesia. The right femoral artery was entered by a modified Seldinger technique and a 6-Tristanian long sheath introducer was placed. There was some difficulty passing the wire up through the descending aorta, but with mild catheter manipulation, the catheter was able to go up to the aortic arch. The patient underwent left ventriculogram, coronary angiography, abdominal aortography using a 6-Tristanian pigtail catheter, 6 -Tristanian JL4 catheter, 6-Tristanian JR4 catheter. At the end of the procedure, an angiogram of the femoral artery demonstrated a normal position of the catheter and a Mynx closure device was deployed. The patient tolerated the procedure well with no complications. A total of 130 cc of Omnipaque dye was used, a total 5 minutes of fluoro time was used. FINDINGS: HEMODYNAMICS: Central aortic blood pressure 115/62 with a mean of 84, left ventricular pressure 118/12 with an end diastolic pressure of 26. LEFT VENTRICULOGRAM: Left ventricle was mildly dilated. Overall systolic function of left ventricle was moderately reduced. Estimated ejection fraction of 30% to 35%. There was inferior wall akinesis. There was no obvious mitral regurgitation. Aortic valve and ascending aorta appeared normal. ABDOMINAL AORTOGRAPHY: A 45 cc of dye was injected into the descending abdominal aorta. The overall size of the aorta was normal. There was however, an outpouching aneurysm just inferior to the renal arteries. There does not appear to be any dissection. There does not appear to be any leak. There were tortuous iliac arteries noted. CORONARY ARTERIES: 1. Right coronary artery. The RCA was a non-dominant vessel, supplying the lateral wall of the right ventricle. There was no evidence of stenosis. 2. Left main. The left main was normal in size. It trifurcated into the LAD, ramus artery and circumflex artery. The left main itself had moderate calcifications. The distal left main artery had a 70% stenosis seen in multiple views. 3. Left anterior descending artery. The LAD was normal in size. It gave off 3 diagonal vessels. There was no evidence of stenosis. 4. Ramus artery. The ramus artery is of moderate size vessel. There is no evidence of stenosis. 5. Left circumflex artery. The circumflex artery was normal in size. It gave off 2 obtuse marginal branches as well as the PDA. The left circumflex itself had no evidence of stenosis. The first obtuse marginal had an ostial 30% stenosis. The remainder of the vessel was without disease. IMPRESSION: 1. Moderately reduced LV systolic function, ejection fraction of 30% to 35%, inferior wall akinesis. 2. A 70% stenosis of the distal left main artery. 3. No significant coronary artery disease in the left anterior descending artery, left circumflex artery, or right coronary artery. 4. 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 RECOMMENDATIONS: The patient will be transferred to [facility] for consideration of bypass surgery given his left main stenosis, LV dysfunction and ventricular tachycardia. [id number]/[facility] #: [id number] BOBBY
[2017-05-11] MEDS ORDERED: Metoprolol Succinate XL TAB* 25 MG PO ONE (04:00)
[2017-05-11 05:16] VITALS: BP 141/82
== END 2017-05-11 05:10 | disposition short-term general hospital (02) | DRG 287 ==
LOC: ED 19:09 → ICU 20:38
PROVIDERS: ADMIT Hospitalist; ATTEND Internal Medicine
PROC: B211YZZ Fluoroscopy of Multiple Coronary Arteries using Other Contrast (ICD-10-PCS; 2017-05-10)
PROC: B410YZZ Fluoroscopy of Abdominal Aorta using Other Contrast (ICD-10-PCS; 2017-05-10)
PROC: B215YZZ Fluoroscopy of Left Heart using Other Contrast (ICD-10-PCS; 2017-05-10)
PROC: 4A023N7 Measurement of Cardiac Sampling and Pressure, Left Heart, Percutaneous Approach (ICD-10-PCS; principal; 2017-05-10 11:00)
DX: I47.2 Ventricular tachycardia (principal); E66.01 Morbid (severe) obesity due to excess calories; I25.10 Atherosclerotic heart disease of native coronary artery without angina pectoris; F17.210 Nicotine dependence, cigarettes, uncomplicated; R60.0 Localized edema; I34.0 Nonrheumatic mitral (valve) insufficiency; I87.8 Other specified disorders of veins; I71.4 Abdominal aortic aneurysm, without rupture; Z82.49 Family history of ischemic heart disease and other diseases of the circulatory system; Z83.3 Family history of diabetes mellitus; Z80.51 Family history of malignant neoplasm of kidney; Z68.39 Body mass index [BMI] 39.0-39.9, adult
CPT/HCPCS: 36415; 80048; 80053; 83605; 83735; 83880; 84443; 84484; 85025; 85610; 87086; 87641; 93005; 93306; 93458; A9270-GY; C1760; C1769; C1887; C8929; J0282; J1644; J2001; J2250; J3010

== ENCOUNTER 2017-06-29 11:43 | Inpatient (IN) | payer MEDICARE ==
[2017-06-29 12:20] LABS: Hematocrit 34 % (42-52); Mean Corpuscular HGB Conc 32 g/dl (31-36); Mean Corpuscular Hemoglobin 28 pg (27-31); Mean Corpuscular Volume 88 fL (80-94); Mean Platelet Volume 7 um3 (7.4-10.4); Red Blood Count 3.92 10^6/ul (4.0-5.4); Red Cell Distribution Width 17 % (10.5-15); White Blood Count 19.8 10^3/ul (3.5-10.8)
[2017-06-29 12:23] LABS: Add Diff/Slide Review? Slide Review Added; Comments Flag Yes
[2017-06-29 12:37] LABS: Albumin 2.8 g/dL (3.2-5.2); BUN/Creatinine Ratio 11.1 (8-20); EGFR Non-African American 68.4 (>60); Globulin 3.5 g/dL (2-4); Magnesium 1.8 mg/dL (1.9-2.7); Total Bilirubin 0.8 mg/dL (0.2-1.0); Total Protein 6.3 g/dL (6.4-8.9)
--- NOTE | 2017-06-29 12:41 | RAD ---
INDICATION: Cardiac arrest COMPARISON: External chest x-ray May 09, 2017 TECHNIQUE: An AP portable supine view obtained at 10 hours is submitted. FINDINGS: Bones/Soft Tissues: There are no acute bony findings. There is sternotomy There is interval intubation. A nasogastric tube is 6 cm above the sandra. A nasogastric tube passes normally through the mediastinum Cardiomediastinal: The cardiac silhouette and central pulmonary vessels are prominent . There is moderate interstitial congestion.. Lungs: Left basilar airspace disease with bronchograms. Obscuration left hemidiaphragm. Pleura: Left-sided effusion. The left costophrenic angle is not included in the [id number] Other: None IMPRESSION: MODERATE VASCULAR CONGESTION WITH LEFT-SIDED EFFUSION AND LEFT-SIDED AIRSPACE DISEASE. ENDOTRACHEAL TUBE IN SATISFACTORY POSITION.
[2017-06-29 12:49] LABS: TSH (Thyroid Stimulating Horm) 12.73 mcIU/mL (0.34-5.60)
[2017-06-29 13:15] LABS: Urine Bacteria Absent (Absent); Urine Bilirubin Negative (Negative); Urine Glucose Negative (Negative); Urine Nitrite Negative (Negative); Urine Sperm Present (Absent)
[2017-06-29] MEDS ORDERED: Iodixanol* (CONTRAST) 320 MG/ML 100 ML SDV IV ONE (13:25)
--- NOTE | 2017-06-29 13:54 | RAD ---
INDICATION: Cardiac arrest. COMPARISON: None TECHNIQUE: Noncontrast axial source images were acquired from the skull base to the vertex. FINDINGS: Ventricles/sulci: The ventricles are normal in size. There does appear to be sulcal effacement suggesting diffuse edema. Brain parenchyma: There is no focal parenchymal finding, evidence of intracranial mass, or intracranial mass effect. There is suspected sulcal effacement is noted above and there is a loss of the thompson-white differentiation suggesting diffuse anoxic injury. Intracranial hemorrhage:None. Extra-axial spaces: There are no abnormal extra axial fluid collections or evidence of extra-axial mass. Calvarium: There is no calvarial fracture or other calvarial abnormality. Scalp: There is no evidence of scalp or extracalvarial soft tissue abnormality. Paranasal sinuses/mastoid: The paranasal sinuses and mastoid air cells are clear. Other: None. IMPRESSION: SUSPECT DIFFUSE ANOXIC INJURY WITH MILD CEREBRAL EDEMA.
[2017-06-29] MEDS ORDERED: Norepinephrine 16MCG/ML IVPRE* 4,000 MCG/250 ML BAG IV SCH (14:00)
[2017-06-29] MEDS ORDERED: Zosyn per Pharmacy* NOTE FOLLOW UP SCH (14:00)
[2017-06-29] MEDS ORDERED: Vancomycin(*) 1,000 MG in NS 0.9% 250 ML* 250 ML IVPB SCH (14:00)
[2017-06-29] MEDS ORDERED: Norepinephrine 16MCG/ML IVPRE* 4,000 MCG/250 ML BAG IV ONE (14:00)
[2017-06-29] MEDS ORDERED: LORazepam INJ* 2 MG/ML 1 ML VIAL ONE (14:06)
--- NOTE | 2017-06-29 14:23 | RAD ---
INDICATION: Cardiac arrest. COMPARISON: Comparison is made with a prior chest x-ray study of the same day. TECHNIQUE: A CT angiogram of the chest, abdomen and pelvis was performed with intravenous contrast following intravenous injection of 150 ml of Visipaque 320 nonionic contrast. Contiguous axial sections were obtained from the lung apices through the symphysis pubis. Images were reconstructed in the coronal and sagittal planes and in a 3-D volume rendered reformatted. FINDINGS: CT ANGIOGRAM OF THE CHEST: There is motion artifact present limiting evaluation of the pulmonary arteries. No central pulmonary embolism is seen. The patient appears to be status post recent sternotomy and coronary artery bypass surgery. The heart is moderately enlarged. There is a small pericardial effusion present. The thoracic aorta is normal in caliber and demonstrates homogeneous contrast opacification without evidence for dissection. There is mild calcific plaque present. There are mildly prominent pretracheal and subcarinal lymph nodes measuring up to 1.3 cm in transverse dimension. No other enlarged mediastinal or hilar lymph nodes are seen. There is a moderate size partially loculated left pleural effusion. There are patchy infiltrates in the right upper and lower lobes and left upper lobe with a more confluent infiltrate present in the left lower lobe likely representing atelectasis secondary to the effusion. CT ANGIOGRAM OF THE ABDOMEN AND PELVIS: The abdominal aorta is slightly tortuous and ectatic with moderate calcific plaque present. The examination is limited due to motion artifact. There is a short segmental dissection present in the infrarenal mid abdominal aorta. This extends over a 2.5 cm segment. The aorta measures 2.7 cm in transverse dimension at the level of the dissection. Evaluation of the mesenteric and renal arteries is limited due to motion artifact. The liver and spleen are normal in size. The liver is decreased in attenuation consistent with fatty infiltration the gallbladder is not well visualized. The pancreas appears to be within normal limits in size. The kidneys and adrenal glands are normal in size. No hydronephrosis is seen. There is a Babin catheter within the urinary bladder which is decompressed. No significant enlarged retroperitoneal lymph nodes are seen. The stomach, small and large bowel appear nondistended. The examination is significantly limited due to motion artifact. There is a moderate size anterior abdominal hernia present containing fat. No free intraperitoneal air or fluid is seen. No significant focal osseous abnormality is seen. The results of this exam were discussed with the referring clinician. IMPRESSION: 1. LIMITED STUDY DUE TO MOTION ARTIFACT NO EVIDENCE FOR CENTRAL PULMONARY EMBOLISM. 2. STATUS POST RECENT CORONARY ARTERY BYPASS SURGERY. THE HEART IS MODERATELY ENLARGED. THERE IS A SMALL PERICARDIAL EFFUSION. 3. MODERATE SIZE PARTIALLY LOCULATED LEFT PLEURAL EFFUSION. 4. BILATERAL INFILTRATES. 5. SHORT SEGMENT DISSECTION IN THE INFRARENAL MID ABDOMINAL AORTA. 6. ANTERIOR ABDOMINAL WALL HERNIA CONTAINING FAT. 7. HEPATIC STEATOSIS.
[2017-06-29 14:50] LABS: Potassium 4.4 mmol/L (3.5-5.0)
[2017-06-29 15:14] LABS: FIO2 100; Resp Rate 16; Ventilator Volume 500
[2017-06-29 15:15] LABS: Troponin I 0.05 ng/mL (<0.04)
[2017-06-29 15:18] LABS: PCO2 Arterial 62 mmHg (35-45)
--- NOTE | 2017-06-29 15:21 | HP ---
H&P (Free Text) History and Physical: History and Physical - Critical Care Limitations in history/physical: post arrest, intubated, nonresponsive; history from chart and from sister Date of admit: 06/29/2017 HPI: 67y M pmhx of CAD and VT; recently admitted 04/2017 for VT and CAD, found to have LM disease and sent to [facility] for open-heart surgery, now s/ p CABG. Patient comes in to [facility] via [facility]. He was at home in yard, waiting for ride to go to physician appt, when patient was witnessed collapsed. EMS was called, found pulseless, CPR/ACLS started and ROSC obtained, IV access obtained, bagged to ER. In [place] he was found bradycardic, sats in upper 80s , intubated, then lost pulse again, started CPR, was bradycardic, ROSC obtained , dopamine started. Downtime in ER of [facility] ~5 minutes. He has been unresponsive, on the vent, sats in upper 80s to low 90s. Transferred to [facility] now, intubated, unresponsive, with episode gnerealized tonic- clonic jerking movements. He is on dopamine, which was held for BP >40s, HR 70- 80s. EKG on arrival Afib vs NSR, RBBB, Qwaves inferior leads II/III/AvF Old EKG 04/2017 NSR, Normal QRS duration without RBBB pattern, Qwaves present inferiorly. CXR 06/29 [facility] ER ett above sandra, ?congestion mild, left sided pleural effusion + which is moderate in size, unclear if infiltrate inderlying. No PTX present. CT head - mild cerebral edema+, no hemorrhage, diffuse anoxic injury suspected ( official reviewed) CT chest/abd/pelvis - moderate left pleural effusion partially loculated; bilateral infiltrates, short segment of dissection in infrarenal mid abd aorta ( official reviewed) IVF NS ongoing still, Dopamine infusion at 5mcg/kg/min. ROS: unable to obtain due to intubation/mental status change PMHx: CAD, CABG PSHx: CABG 04/2017 Family History: CAd in mother/father Social History: active smoker 1/2 ppd x50yrs, no alcohol use recently, past use+ . History from sister. Allergies: Allergies Allergy/AdvReac Type Severity Reaction Status Date / Time No Known Allergies Allergy Verified 05/09/17 20:04 Home Medications: unknown; need to obtain [facility] records about discharge medications Tele: NSR Vitals: Vital Signs Temp 99 F 06/29/17 11:47 Pulse 70 06/29/17 13:42 Resp 25 06/29/17 13:30 BP 103/55 06/29/17 13:30 Pulse Ox 91 06/29/17 13:42 Intake & Output 06/28/17 06/29/17 06/29/17 18:59 06:59 18:59 Weight 285 lb O2/Vent: AC 16/500/+6/100% Infusions: propofol, levophed, ns 100cc/hour Current Medications: Heparin Sodium (Porcine) (Heparin Flush Picc/Ml/Cvc(*)) 0 ml FLUSH 0600,1800 LAY PRN Reason: Protocol Propofol (Diprivan*) 100 mls @ 15.513 mls/hr IV .(Initial Rate) LAY; 20 MCG/KG/ MIN PRN Reason: Protocol Vancomycin HCl 1,000 mg/ (Sodium Chloride) 250 mls @ 166.667 mls/hr IVPB Q12H LAY Norepinephrine Bitartrate (Levophed 16 Mcg/Ml Premix Bag*) 4,000 mcg in 250 mls @ 18.75 mls/hr IV .INITIAL RATE LAY PRN Reason: 5 MCG/MIN Insulin Human Regular (Insulin Regular(*)) 0 units SUBCUT Q4HR LAY PRN Reason: Protocol Pharmacy Consult (Zosyn Per Pharmacy*) 1 note FOLLOW UP .ZOSYN PER PHARMACY LAY Physical Exam: General: intubated, nonresponsive. Head: normocephalic, atraumatic HEENT: no pallor, no icterus, moist mucous membranes Neck: soft, supple, no jvd, no stridor CVS: normal rate, normal rhythm, no murmur Resp: bilateral air entry with dec BS on left base, no rhales, no wheeze, no rhonchi, no acc muscle use Abdomen: soft, obese, nontender, nondistended Ext: pulses+, warm, 3+ edema LE Skin: intact, no breakdown, dry/changes of chronic edema Neuro: intubated, unresponsive, intermittent generalized tonic/clonic movements ; pupils pinpoint 1-2mm, corneal reflex+, cough+, gag unable to illicit, not moving ext Labs: Laboratory Results - last 24 hr 06/29/17 06/29/17 06/29/17 12:08 12:08 12:08 WBC 19.8 H RBC 3.92 L Hgb 11.0 L Hct 34 L MCV 88 MCH 28 MCHC 32 RDW 17 H Plt Count 402 MPV 7 L Neut % (Auto) 94.5 H Lymph % (Auto) 3.[address] [place] % (Auto) 1.8 Eos % (Auto) 0.1 Baso % (Auto) 0.3 Absolute Neuts (auto) 18.7 H Absolute Lymphs (auto) 0.7 L Absolute Monos (auto) 0.4 Absolute Eos (auto) 0 Absolute Basos (auto) 0.1 Absolute Nucleated RBC 0.01 Nucleated RBC % 0 INR (Anticoag Therapy) Patient Temperature ABG pH ABG pCO2 ABG pO2 ABG HCO3 ABG O2 Saturation ABG Base Excess Respiration Rate Ventilator Type Vent Mode FiO2 Inspiratory Time PEEP Pressure Support Pressure Control EPAP IPAP BiPAP Sodium 120 L Potassium 4.4 Chloride 87 L Carbon Dioxide 23 Anion Gap 10 BUN 12 Creatinine 1.08 Est GFR ( Amer) 88.0 Est GFR (Non-Af Amer) 68.4 BUN/Creatinine Ratio 11.1 Glucose 172 H Lactic Acid 4.2 H* Calcium 8.0 L Magnesium 1.8 L Total Bilirubin 0.80 AST 55 H ALT 43 Alkaline Phosphatase 92 Troponin I 0.05 H* B-Natriuretic Peptide Total Protein 6.3 L Albumin 2.8 L Globulin 3.5 Albumin/Globulin Ratio 0.8 L TSH 12.73 H Urine Color Urine Appearance Urine pH Ur Specific [place] Urine Protein Urine Ketones Urine Blood Urine Nitrate Urine Bilirubin Urine Urobilinogen Ur Leukocyte Esterase Urine WBC (Auto) Urine RBC (Auto) Urine Bacteria Hyaline Casts Urine Sperm Urine Glucose 06/29/17 06/29/17 06/29/17 12:08 12:08 12:33 WBC RBC Hgb Hct MCV MCH MCHC RDW Plt Count MPV Neut % (Auto) Lymph % (Auto) [place] % (Auto) Eos % (Auto) Baso % (Auto) Absolute Neuts (auto) Absolute Lymphs (auto) Absolute Monos (auto) Absolute Eos (auto) Absolute Basos (auto) Absolute Nucleated RBC Nucleated RBC % INR (Anticoag Therapy) 1.28 H Patient Temperature ABG pH ABG pCO2 ABG pO2 ABG HCO3 ABG O2 Saturation ABG Base Excess Respiration Rate Ventilator Type Vent Mode FiO2 Inspiratory Time PEEP Pressure Support Pressure Control EPAP IPAP BiPAP Sodium Potassium Chloride Carbon Dioxide Anion Gap BUN Creatinine Est GFR ( Amer) Est GFR (Non-Af Amer) BUN/Creatinine Ratio Glucose Lactic Acid Calcium Magnesium Total Bilirubin AST ALT Alkaline Phosphatase Troponin I B-Natriuretic Peptide 593 H Total Protein Albumin Globulin Albumin/Globulin Ratio TSH Urine Color Yellow Urine Appearance Clear Urine pH 7.0 Ur Specific [place] 1.013 Urine Protein 2+(100 mg/dl) H Urine Ketones Negative Urine Blood 1+ H Urine Nitrate Negative Urine Bilirubin Negative Urine Urobilinogen Negative Ur Leukocyte Esterase Negative Urine WBC (Auto) Trace(0-5/hpf) Urine RBC (Auto) Trace(0-2/hpf) Urine Bacteria Absent Hyaline Casts Present H Urine Sperm Present H Urine Glucose Negative 06/29/17 15:10 WBC RBC Hgb Hct MCV MCH MCHC RDW Plt Count MPV Neut % (Auto) Lymph % (Auto) [place] % (Auto) Eos % (Auto) Baso % (Auto) Absolute Neuts (auto) Absolute Lymphs (auto) Absolute Monos (auto) Absolute Eos (auto) Absolute Basos (auto) Absolute Nucleated RBC Nucleated RBC % INR (Anticoag Therapy) Patient Temperature Not Reportable ABG pH 7.25 L ABG pCO2 62 H ABG pO2 114 H ABG HCO3 24.3 ABG O2 Saturation 99.4 H ABG Base Excess -0.8 Respiration Rate 16 Ventilator Type 500 Vent Mode cmv FiO2 100 Inspiratory Time 1.0 PEEP 10 Pressure Support Not Reportable Pressure Control Not Reportable EPAP Not Reportable IPAP Not Reportable BiPAP Not Reportable Sodium Potassium Chloride Carbon Dioxide Anion Gap BUN Creatinine Est GFR ( Amer) Est GFR (Non-Af Amer) BUN/Creatinine Ratio Glucose Lactic Acid Calcium Magnesium Total Bilirubin AST ALT Alkaline Phosphatase Troponin I B-Natriuretic Peptide Total Protein Albumin Globulin Albumin/Globulin Ratio TSH Urine Color Urine Appearance Urine pH Ur Specific [place] Urine Protein Urine Ketones Urine Blood Urine Nitrate Urine Bilirubin Urine Urobilinogen Ur Leukocyte Esterase Urine WBC (Auto) Urine RBC (Auto) Urine Bacteria Hyaline Casts Urine Sperm Urine Glucose Imaging: CXR 06/29 [facility] ER ett above sandra, ?congestion mild, left sided pleural effusion + which is moderate in size, unclear if infiltrate inderlying. No PTX present. CT head - mild cerebral edema+, no hemorrhage, diffuse anoxic injury suspected ( official reviewed) CT chest/abd/pelvis - moderate left pleural effusion partially loculated; bilateral infiltrates, short segment of dissection in infrarenal mid abd aorta ( official reviewed) Assessment: 67y M pmhx of CAD and VT, s/p CABG 04/[address] [facility]; brought in via [facility] as OOH Cardiac Arrest, presented bradycardic and hypoxic. -Cardiac Arrest, PEA vs bradycardic; s/p therap hypothermia 06/29 -Acute Hypoxic Respiratory Failure -Encephelopathy, suspect hypoxic-ischemic encephalopathy -Left Pleural effusion, partially loculated -r/o pneumonia -Pulmonary Congestion -short infrarenal mid aortic dissection -CAD s/p CABG Plan: Neuro- post arrest, appear to be showing signs of myoclonic activity and brain injury already. Neurology consult. Start propofol for sedation. ativan prn. Given out of hospital arrest, suspected cardiac cause, brain stem signs+, may benefit from therapeutic hypothermia. intravenous cooling cathetor placed, will initiate, target temp 34-38C, avoid fevers. Neurochecks q1h. demerol prn for shivering. CVS- currently MAP~65. levophed as needed. ECHO pending. troponin 0.05 now, EKG with RBBB which is new from 04/2017 but need to obtain [facility] EKGs post op. CT with small effusion. EKG at 6pm. Noted small infrarenal dissection, but no flap or obstruction to flow downstream. will monitor for now, pulses in iliacs+ . Hold on vascular consult given neurological state, monitor with vascular checks. Will obtain arterial duplex in AM. Monitor for bradycardia during hypothermia. lactic acid +, cont to trend, may be from cardiac arrest vs consistent shock state. Resp- on Vent, cont 100% fio2, peep 6. ABG pending now. CT results noted with left partially loculated effusion, infiltrates+. WIll cover for pneumonia/HCAP given hospitalization last 3 months. Likely to drain left effusion to help ventilation/oxygenation and to eval for exudative collection. Bronchodilators prn. sputum cx. IV abx. CXR in AM. ID- wbc 19, may be reactive, urine culture pending. Blood cx x2. Left effusion without evidence of consolidation. Will start IV abx empirically till cx return given critical illness. GI- NPO, ngt to low intermittent wall suction. no further brown material from stomach. pepcid iv. Renal- recinos in place. making small amounts of urine. cont to monitor. IVF NS. maintain perfusion pressure. Monitor lytes in hypothermic state, likely to diurese and loose K. BMP q4-6h. Heme- hg stable. plt stable. no bleeding. DVT prophylaxis if no bleeding noted. Endo- glycemic control, target BS<200 Musculsk- none Wounds- none; pressure ulcer prophylaxis Nutrition- NPO DVT prophylaxis: LE compression, heparin sq GI prophylaxis: Pepcid Central Line: right fem, 06/29 Arterial Line: right fem, 06/29 Recinos Cathetor: yes Disposition: admit ICU post cardiac arrest, hypoxic respiratory failure Code Status: FULL CODE discussed with sister at bedside, patient has always been on and off with them, not always telling them everything. recently no complaints expressed. He is , no children. Her and her brother would be likely decision makers. No other decision maker for him. Will obtain surrogate status for them. Total Critical Care time is 90 minutes, excluding procedures/teaching Satinder Westbrook MD Production Line Mechanic (Electronically Signed)
[2017-06-29] MEDS ORDERED: Vancomycin per Pharmacy* NOTE FOLLOW UP PRN (15:33)
[2017-06-29] MEDS ORDERED: Meperidine SYRINGE* 50 MG/ML IV PRN (15:34)
[2017-06-29] MEDS: Propofol* 100 ML IV SCH ×2 (15:41→20:52)
[2017-06-29] MEDS: Norepinephrine 16MCG/ML IVPRE* 4,000 MCG/250 ML BAG IV SCH (15:42)
[2017-06-29] MEDS ORDERED: Vancomycin(*) 2,000 MG in NS 0.9% 500 ML BAG* 500 ML IVPB ONE (15:45)
--- NOTE | 2017-06-29 15:46 | PN ---
Progress Note - Progress Note Date of Service: 06/29/17 Note: Arterial Line Procedure Note Indication: cardiac arrest, shock Consent was emergent - Prior labs/history was reviewed prior to procedure - Full sterile precautions with chlorhexidine/full drapes/gowns/gloves utilized - Right femoral artery visualized with US - Vessel accessed with return of pulsatile blood. 1 attempt was made to access vessel. A cathetor was threaded over wire into vessel. Good arterial waveform was observed on monitor. - Arterial Catheter was sutured to site - Adequate hemostasis was achieved, EBL <3 cc No immediate complications noted, patient tolerated procedure well. Dressing applied to site. Satinder Westbrook MD Plastic Bubble Packer (electronically signed)
--- NOTE | 2017-06-29 15:47 | PN ---
Progress Note - Progress Note Date of Service: 06/29/17 Note: Central Line Procedure Note Indication: cardiac arrest, shock, therapeutic hypothermia Consent was emergent Discussed with sister after procedure about current protocol, she agreed. - Prior labs/history was reviewed prior to procedure - Full sterile precautions with chlorhexidine/full drapes/gowns/gloves utilized - Right femoral vein visualized with ultrasound - Vessel accessed under ultrasound guidance with return of nonpulsatile blood. A guidewire was passed into vessel and confirmed in vessel with ultrasound. 1 attempt was made to access vessel. Vessel was dilated and cathetor was passed over wire into vessel. All ports demonstrated good blood return and flushed. Catheter was sutured to site and dressing applied Adequate hemostasis was achieved, EBL 5 cc No immediate complications noted, patient tolerated procedure well. Satinder Westbrook MD Rent And Housing Investigator (electronically signed)
[2017-06-29] MEDS ORDERED: Ipratropium 0.5MG/2.5ML NEB* 0.5 MG/2.5 ML NEB.SOLN INH PRN (15:55)
[2017-06-29] MEDS ORDERED: DOPamine 200 MG/250 ML IVPREM* 200 MG/250 ML ML IV SCH (16:00)
[2017-06-29] MEDS ORDERED: NS 0.9% 1000 ML* 1,000 ML IV ONE ×2 (16:04→16:05)
[2017-06-29] MEDS ORDERED: DOPamine 200 MG/250 ML IVPREM* 200 MG/250 ML ML IV ONE (16:12)
[2017-06-29] MEDS ORDERED: NS 0.9% 1000 ML* 1,000 ML IV SCH (16:15)
[2017-06-29] MEDS ORDERED: Perflutren Lipid Microsphere* 3 ML VIAL ONE (16:28)
[2017-06-29] MEDS: Insulin REGULAR(*) 1 UNITS UNIT SUBCUT SCH ×2 (17:36→21:03)
--- NOTE | 2017-06-29 17:44 | ECHO ---
Patient: TREE DE LA CRUZ [facility] Rec#: [id number] : 1950 Date: 06/29/2017 Age: 67y Height: 177.8 cm / 70.0 in Weight: 129.27 kg / 284.9 lbs Sex: M BSA: 2.43 Room#: [facility] Admit Date#: 06/29/2017 Type: Inpatient Referring: Satinder Westbrook Reading: Javon Nava MD Engineer Remote Control Diesel: Keturah Arechiga RDCS CC: Tree Holloway MD Transthoracic Echocardiogram Indication: Cardiac arrest BP: 97/51 HR: 45 Rhythm: Bradycardia Findings History: Smoker, ventricular tachycardia, s/p CABG 05/31. Patient sedated, intubated, and mechanically ventilated. Technical Comments: The study is technically difficult. The study is technically limited due to poor acoustic windows. The study was technically limited due to the patient's inability to lay in the left lateral decubitus position. The study is technically limited due to patient being intubated and on a ventilator. Completed at 1720. Left Ventricle: The left ventricular chamber size is normal. Mild concentric left ventricular hypertrophy is observed. There is a focal wall motion abnormality present.There is akinesis with possible aneursymal dilatation of the proximal inferior wall. The estimated ejection fraction is 35-40%. Post surgical hypokinesis of the interventricular septum is observed consistent with coronary artery bypass. There is a left ventricular septal wall motion abnormality observed, possibly due to the presence of a right bundle branch block. There is no consistent Doppler evidence of clinically significant diastolic dysfunction. Left Atrium: The left atrium is moderately dilated. Right Ventricle: Moderator Band present. The right ventricular cavity size is normal. The right ventricular global systolic function is mildly reduced. Right Atrium: The right atrium is moderately dilated. Aortic Valve: The aortic valve is trileaflet. The aortic valve leaflets are mildly thickened. There is a trace of aortic regurgitation. There is no evidence of aortic stenosis. Mitral Valve: The mitral valve leaflets are mildly thickened. There is moderate mitral regurgitation. The mitral regurgitant jet is posteriorly directed. There is no evidence of mitral stenosis. Tricuspid Valve: The tricuspid valve leaflets are normal. There is moderate tricuspid regurgitation. The right ventricular systolic pressure is estimated at 42 mmHg. There is evidence of mild pulmonary hypertension. There is no tricuspid stenosis. Pulmonic Valve: The pulmonic valve appears normal. There is mild pulmonic regurgitation. There is no pulmonic stenosis. Pericardium: There is no significant pericardial effusion. A pericardial fat pad is visualized. Aorta: There is no dilatation of the ascending aorta. There is no dilatation of the aortic arch. There is no dilation of the aortic root. Pulmonary Artery: The main pulmonary artery is not well visualized. Venous: Unable to accurately comment on the size collapsibility of the IVC as the patient in known to be on mechanical ventilation. Contrast: Definity was used to optimize study. 8 mL of diluted Definity was utilized. Intravenous contrast was used to enhance endocardial border definition. Conclusions The study is technically difficult. The study is technically limited due to poor acoustic windows. The study was technically limited due to the patient's inability to lay in the left lateral decubitus position. The study is technically limited due to patient being intubated and on a ventilator. Mild concentric left ventricular hypertrophy is observed. There is a focal wall motion abnormality present.There is akinesis with possible aneursymal dilatation of the proximal inferior wall. The estimated ejection fraction is 35-40%. Post surgical hypokinesis of the interventricular septum is observed consistent with coronary artery bypass. Abnormal left ventricular diastolic function is observed. There is a left ventricular septal wall motion abnormality observed, possibly due to the presence of a right bundle branch block. The left atrium is moderately dilated. There is moderate mitral regurgitation. The right ventricular global systolic function is mildly reduced. The right atrium is moderately dilated. There is moderate tricuspid regurgitation. The right ventricular systolic pressure is estimated at 42 mmHg. There is mild pulmonic regurgitation. Compared to report of prior study from 05/10/2017 overall LV function is perhaps mildly improved (was qouted as 30-35 %) The prior wall motion abnormalities involving the apical region are better but the basal inferior abnormality was not noted. Measurements Name Value Normal Range RVIDd (AP) 2D 3.3 cm (0.9 - 2.6) RVDdMajor (2D) 4.1 cm (2.2 - 4.4) RVAW (2D) 0.4 cm (0.2 - 0.5) RAd ISD 4CH 6.1 cm (3.4 - 4.9) RA (A4C)W 5.3 cm (2.9 - 4.6) IVSd (2D) 1.2 cm (0.6 - 1) LVPWd (2D) 1.2 cm (0.6 - 1) LVIDd (2D) 4.9 cm (3.6 - 5.4) LVIDs (2D) 4.23 cm - LV FS (2D) 14 % (25 - 45) Aortic Annulus 2.2 cm (1.4 - 2.6) Ao root diameter (2D) 3.4 cm (2.1 - 3.5) Ascending Ao 3.1 cm (2.1 - 3.4) Aortic arch 2.6 cm (1.8 - 3.4) LA dimension (AP) 2D 4.7 cm (2.3 - 3.8) LAd ISD 4CH 6.9 cm (2.9 - 5.3) LA ISD 4CH W 6.3 cm (2.5 - 4.5) Name Value Normal Range LA ESV SP 4CH (A/L) 154 ml - LA ESV SP 2CH (A/L) 106 ml - LA ESV BP (A/L) 128 ml - LA ESV BP (A/L) index 52.67 ml/m2 - LA ESV SP 4CH (MOD) 136 ml - LA ESV SP 2CH (MOD) 104 ml - Name Value Normal Range MV E-wave Vmax 0.81 m/sec - MV deceleration time 253.9 msec - MV A-wave Vmax 0.41 m/sec - MV E:A ratio 1.99 ratio - LV septal e' Vmax 0.03 m/sec - LV lateral e' Vmax 0.03 m/sec - LV E:e' septal ratio 27 ratio - LV E:e' lateral ratio 27 ratio - Name Value Normal Range AV Vmax 0.87 m/sec - AV VTI 21.6 cm - AV peak gradient 3.04 mmHg - AV mean gradient 1.33 mmHg - LVOT Vmax 0.68 m/sec - LVOT VTI 16.2 cm - LVOT peak gradient 1.83 mmHg - LVOT mean gradient 0.84 mmHg - KEAGAN Vmax 0.64 m/sec - Name Value Normal Range MR Vmax 4.19 m/sec - MR VTI 212.1 cm - MR flow (PISA) 152.5 ml/sec - MR PISA radius 0.67 cm - MR alias Vmax 53 cm/sec - Name Value Normal Range TR Vmax 2.9 m/sec - TR peak gradient 34 mmHg - RAP 8 mmHg - RVSP 42 mmHg - IVC diameter 2.77 cm - Name Value Normal Range PV Vmax 0.56 m/sec - PV peak gradient 1.26 mmHg - ID end-diastolic Vmax 0.84 m/sec -
--- NOTE | 2017-06-29 17:47 | ED ---
Yan Maldonado Benjamin, scribed for Emanuel Louise MD on 06/29/17 at 1213 . Cardiac Resuscitation - HPI Summary HPI Summary: 67yo male BIBA on ALS from [facility]. Pt was found unresponsive with cardiac arrest earlier today and was seen at [facility] where he achieved return of spontaneous respiration. Pt was intubated and coded three times during in [facility]. Pt is transferred to [facility] ED for further care. - History of Current Complaint Chief Complaint: EDCardiacArrest Stated Complaint: TRANSFER FROM [facility] Hx Obtained From: EMS Hx From Patient Unobtainable Due To: Extremis - Additional Pertinent History Primary Care Physician: [id number] - Allergies/Home Medications Allergies/Adverse Reactions: Allergies Allergy/AdvReac Type Severity Reaction Status Date / Time No Known Allergies Allergy Verified 05/09/17 20:04 Home Medications: Home Medications NK [No Home Medications Reported] 06/29/17 [History Confirmed 06/29/17] - Past Medical History Past Medical History: Unobtainable Due to Extremis - Family History Family History: Unobtainable Due to Extremis - Social History Social History: Unobtainable Due to Extremis - Review of Systems Review of Systems: Unobtainable Due to Extremis Physical Examination - Physical Examination Completion Of Physical Exam Limited Due To: Extremis Physical Exam Additional Comments: Unresponsive obese male. Pt is Intubated. Bilateral pupils dilated 1-2mm and reactive. Bilateral Breath Sounds intact. Heart tones distant. Normal rate. Belly distended and tympanitic. No borborygmi sound. Bloody discharge from NG tube. Bilateral LE edema. - ED Findings Breathing: Breath Sounds Equal Disability/Neurological: Unresponsive, Pupils Reactive, Pupils Dilated - 1-2mm Diagnostics - Vital Signs Vital Signs Temp Pulse Resp BP Pulse Ox 06/29/17 11:59 71 21 110/57 93 06/29/17 11:47 99 F 70 21 140/125 83 - Laboratory Lab Results: Lab Results 06/29/17 06/29/17 06/29/17 Range/Units 12:08 12:08 12:08 WBC 19.8 H (3.5-10.8) 10^3/ul RBC 3.92 L (4.0-5.4) 10^6/ul Hgb 11.0 L (14.0-18.0) g/dl Hct 34 L (42-52) % MCV 88 (80-94) fL MCH 28 (27-31) pg MCHC 32 (31-36) g/dl RDW 17 H (10.5-15) % Plt Count 402 (150-450) 10^3/ul MPV 7 L (7.4-10.4) um3 Neut % (Auto) 94.5 H (38-83) % Lymph % (Auto) 3.3 L (25-47) % Pennington % (Auto) 1.8 (1-9) % Eos % (Auto) 0.1 (0-6) % Baso % (Auto) 0.3 (0-2) % Absolute Neuts (auto) 18.7 H (1.5-7.7) 10^3/ul Absolute Lymphs (auto) 0.7 L (1.0-4.8) 10^3/ul Absolute Monos (auto) 0.4 (0-0.8) 10^3/ul Absolute Eos (auto) 0 (0-0.6) 10^3/ul Absolute Basos (auto) 0.1 (0-0.2) 10^3/ul Absolute Nucleated RBC 0.01 10^3/ul Nucleated RBC % 0 INR (Anticoag Therapy) (0.89-1.11) Sodium 120 L (133-145) mmol/L Potassium 4.4 (3.5-5.0) mmol/L Chloride 87 L (101-111) mmol/L Carbon Dioxide 23 (22-32) mmol/L Anion Gap 10 (2-11) mmol/L BUN 12 (6-24) mg/dL Creatinine 1.08 (0.67-1.17) mg/dL Est GFR ( Amer) 88.0 (>60) Est GFR (Non-Af Amer) 68.4 (>60) BUN/Creatinine Ratio 11.1 (8-20) Glucose 172 H (70-100) mg/dL Lactic Acid 4.2 H* (0.5-2.0) mmol/L Calcium 8.0 L (8.6-10.3) mg/dL Magnesium 1.8 L (1.9-2.7) mg/dL Total Bilirubin 0.80 (0.2-1.0) mg/dL AST 55 H (13-39) U/L ALT 43 (7-52) U/L Alkaline Phosphatase 92 (34-104) U/L Troponin I 0.05 H* (<0.04) ng/mL B-Natriuretic Peptide ( - 100) pg/mL Total Protein 6.3 L (6.4-8.9) g/dL Albumin 2.8 L (3.2-5.2) g/dL Globulin 3.5 (2-4) g/dL Albumin/Globulin Ratio 0.8 L (1-3) TSH 12.73 H (0.34-5.60) mcIU/mL 06/29/17 06/29/17 Range/Units 12:08 12:08 WBC (3.5-10.8) 10^3/ul RBC (4.0-5.4) 10^6/ul Hgb (14.0-18.0) g/dl Hct (42-52) % MCV (80-94) fL MCH (27-31) pg MCHC (31-36) g/dl RDW (10.5-15) % Plt Count (150-450) 10^3/ul MPV (7.4-10.4) um3 Neut % (Auto) (38-83) % Lymph % (Auto) (25-47) % Penning[place] % (Auto) (1-9) % Eos % (Auto) (0-6) % Baso % (Auto) (0-2) % Absolute Neuts (auto) (1.5-7.7) 10^3/ul Absolute Lymphs (auto) (1.0-4.8) 10^3/ul Absolute Monos (auto) (0-0.8) 10^3/ul Absolute Eos (auto) (0-0.6) 10^3/ul Absolute Basos (auto) (0-0.2) 10^3/ul Absolute Nucleated RBC 10^3/ul Nucleated RBC % INR (Anticoag Therapy) 1.28 H (0.89-1.11) Sodium (133-145) mmol/L Potassium (3.5-5.0) mmol/L Chloride (101-111) mmol/L Carbon Dioxide (22-32) mmol/L Anion Gap (2-11) mmol/L BUN (6-24) mg/dL Creatinine (0.67-1.17) mg/dL Est GFR ( Amer) (>60) Est GFR (Non-Af Amer) (>60) BUN/Creatinine Ratio (8-20) Glucose (70-100) mg/dL Lactic Acid (0.5-2.0) mmol/L Calcium (8.6-10.3) mg/dL Magnesium (1.9-2.7) mg/dL Total Bilirubin (0.2-1.0) mg/dL AST (13-39) U/L ALT (7-52) U/L Alkaline Phosphatase (34-104) U/L Troponin I (<0.04) ng/mL B-Natriuretic Peptide 593 H ( - 100) pg/mL Total Protein (6.4-8.9) g/dL Albumin (3.2-5.2) g/dL Globulin (2-4) g/dL Albumin/Globulin Ratio (1-3) TSH (0.34-5.60) mcIU/mL Result Diagrams: 06/29/17 12:08 06/29/17 12:08 Lab Statement: Any lab studies that have been ordered have been reviewed, and results considered in the medical decision making process. - Radiology CXR Xray Interpretation: Positive (See Comments) - IMPRESSION: MODERATE VASCULAR CONGESTION WITH LEFT-SIDED EFFUSION AND LEFT-SIDED AIRSPACE DISEASE. ENDOTRACHEAL TUBE IN SATISFACTORY POSITION. Radiology Interpretation Completed By: Radiologist - CT CT brain CT Interpretation: Positive (See Comments) - IMPRESSION: SUSPECT DIFFUSE ANOXIC INJURY WITH MILD CEREBRAL EDEMA. CT Interpretation Completed By: Radiologist CTA Chest CT Interpretation: Positive (See Comments) - IMPRESSION: 1. LIMITED STUDY DUE TO MOTION ARTIFACT NO EVIDENCE FOR CENTRAL PULMONARY EMBOLISM. 2. STATUS POST RECENT CORONARY ARTERY BYPASS SURGERY. THE HEART IS MODERATELY ENLARGED. THERE IS A SMALL PERICARDIAL EFFUSION. 3. MODERATE SIZE PARTIALLY LOCULATED LEFT PLEURAL EFFUSION. 4. BILATERAL INFILTRATES. 5. SHORT SEGMENT DISSECTION IN THE INFRARENAL MID ABDOMINAL AORTA. 6. ANTERIOR ABDOMINAL WALL HERNIA CONTAINING FAT. 7. HEPATIC STEATOSIS. CT Interpretation Completed By: Radiologist - EKG 1226. Cardiac Rate: NL - 62bpm EKG Rhythm: Sinus Rhythm EKG Interpretation: new LBBB Cardiac Resus. Course/Dx - Course Course Of Treatment: Discussed with Dr. Westbrook (ICU) at 12:20. Mr. Patiño was relatively stable on arrival. He continued to be unresponsive and his pressure was soft when we tried to stop the dopamine. He was sent for a PE study and taken directly to the ICU from there. Dr. Westbrook came to see him in the ED prior to the CTA. - Diagnoses Provider Diagnoses: Cardiopulmonary arrest - Critical Care Time Critical Care Time: 30-74 min Discharge - Discharge Plan Condition: Stable Disposition: ADMITTED TO [facility] The documentation as recorded by the Yan dhillon Benjamin accurately reflects the service I personally performed and the decisions made by me, Emanuel Louise MD.
--- NOTE | 2017-06-29 17:59 | PN ---
Progress Note - Progress Note Date of Service: 06/29/17 Note: [facility] records reviewed - s/p CABGx2 (cuenca-lad, svg-marginal) Post op course complicated by bleeding and Vt/VF Persistent hypoxia, discharged on 2L [place] to Rehab. Predischarge echo with LVEF 55%. Discussion with sister and brother at bedside. No other immediate family available. Sister would be designated surrogate at this time for patient. Overall medical condition discussed with, cardiac status, pulm status, neurological status including neuro injury from arrest. We discussed if he ever expressed desires or goals of care. Only brother had some mention of what he may have told him. I discussed chance of further VT. Patient did have more VT while in ICU here. After discussion about furhter injury if he arrests, they agreed to have patient a DNR. We agreed to continue care and see how neurological status progresses in coming 24-48 hours while on and after hypothermia. They would decide on how to progress care afterward. Family is understanding of his overall condition as well as his previous hospital courses and medical conditions. All questions were answered. Satinder Westbrook Director Customer (electronically signed)
[2017-06-29] MEDS ORDERED: Midazolam* 1 MG/ML 2 ML VIAL (2 MG) IV PRN (18:02)
[2017-06-29 18:47] LABS: FIO2 90; Resp Rate 20; Ventilator Volume 500
[2017-06-29 18:49] LABS: PCO2 Arterial 49 mmHg (35-45)
[2017-06-29] MEDS: NS 0.9% 1000 ML* 1,000 ML IV SCH (19:30)
[2017-06-29] MEDS: ZOSYN 3.375 GM Q8H per EXTENDED INFUSION IVPB SCH ×2 (20:50)
[2017-06-29] MEDS ORDERED: Amiodarone DRIP 150 MG in D5W 100 ML *LOADING DOSE* OVER 10 MIN IV PRN (21:42)
[2017-06-29] MEDS ORDERED: KCL 20 MEQ/100 ML IVPREMIX* 20 MEQ/100 ML BAG IV PRN ×2 (21:43→21:44)
[2017-06-29] MEDS ORDERED: Albumin Human 5%* 500 ML in PREMIX* 0 ML IV ONE (23:00)
[2017-06-30 00:06] LABS: BUN/Creatinine Ratio 11.9 (8-20); Calcium 8.1 mg/dL (8.6-10.3); EGFR African American 63.6 (>60); EGFR Non-African American 49.5 (>60)
[2017-06-30] MEDS: Insulin REGULAR(*) 1 UNITS UNIT SUBCUT SCH ×7 (01:52→23:40)
[2017-06-30] MEDS: Chlorhexidine MOUTHWASH 0.12%* 15 ML UDC SWISH SPIT SCH ×6 (01:55→20:43)
[2017-06-30] MEDS: Vancomycin(*) 1,250 MG in NS 0.9% 250 ML* 250 ML IVPB SCH ×3 (01:58→17:14)
[2017-06-30] MEDS: Propofol* 100 ML IV SCH ×8 (02:50→23:25)
[2017-06-30] MEDS: Norepinephrine 16MCG/ML IVPRE* 4,000 MCG/250 ML BAG IV SCH ×2 (02:58→14:51)
[2017-06-30] MEDS: ZOSYN 3.375 GM Q8H per EXTENDED INFUSION IVPB SCH ×6 (05:00→20:38)
[2017-06-30 06:11] LABS: Hematocrit 31 % (42-52); Hemoglobin 10.1 g/dl (14.0-18.0); Mean Corpuscular HGB Conc 33 g/dl (31-36); Mean Corpuscular Hemoglobin 28 pg (27-31); Mean Corpuscular Volume 86 fL (80-94); Mean Platelet Volume 7 um3 (7.4-10.4); Red Blood Count 3.56 10^6/ul (4.0-5.4); Red Cell Distribution Width 17 % (10.5-15); White Blood Count 13.6 10^3/ul (3.5-10.8)
[2017-06-30 06:24] LABS: FIO2 70; Patient Temp ABG 34.0 C; Resp Rate 20
[2017-06-30 06:26] LABS: Albumin 2.8 g/dL (3.2-5.2); BUN/Creatinine Ratio 11.9 (8-20); Calcium 8.3 mg/dL (8.6-10.3); EGFR African American 63.6 (>60); EGFR Non-African American 49.5 (>60); Total Bilirubin 0.8 mg/dL (0.2-1.0); Total Protein 5.8 g/dL (6.4-8.9)
[2017-06-30 06:27] LABS: PCO2 Arterial 34 mmHg (35-45)
[2017-06-30 07:02] LABS: Free T3 1.4 pg/mL (2.5-3.9)
[2017-06-30 07:03] LABS: Free T4 1.09 ng/dL (0.61-1.12)
--- NOTE | 2017-06-30 07:54 | RAD ---
Indication: Shortness of breath. Single frontal view of the chest performed at 1300 hours was reviewed. Comparison is made with previous exam dated exam done earlier the same day. Left pleural effusion is noted. ET tube is at the level of T2-T3. Right lung field is clear. IMPRESSION: Left pleural effusion is noted. ET tube in appropriate location. Left lower lobe atelectasis is noted..
[2017-06-30] MEDS: Albuterol 2.5 MG/3 ML NEB.SOL* (0.083%) INH PRN ×3 (08:09→12:52)
[2017-06-30] MEDS: Albuterol/Ipratropium NEB.SOL* Albuterol 2.5 MG/Ipratropium 0.5 MG 3 ML INH PRN ×2 (08:37→21:47)
[2017-06-30] MEDS ORDERED: methylPREDNISolone 125 MG* 2 ML VIAL IV ONE (08:52)
--- NOTE | 2017-06-30 09:02 | PN ---
Progress Note - Progress Note Date of Service: 06/30/17 Note: Progress Note - Critical Care 24 hour events: -admitted as cardiac arrest yesterday, started on hypothermia protocol -discussed with family, current medical status, made DNR by family. -bradycardia after initiation of hypothermia, started on dopamine but developed VT, discontinued -remains on levophed, HR in 40s during night and now. -remains intubated, on propofol for sedation -far less myoclonic jerking movements noted; no further ativan/versed required. -making urine Tele: sinus bradycardia Vitals: Vital Signs Temp 93.0 F 06/30/17 08:00 Pulse 44 06/30/17 08:11 Resp 20 06/30/17 08:11 BP 85/54 06/29/17 15:45 Pulse Ox 100 06/30/17 08:11 Intake & Output 06/29/17 06/30/17 06/30/17 18:59 06:59 18:59 Intake Total 1999 2927 Output Total 400 565 Balance 1600 2362 Weight 296 lb 8.348 oz 293 lb 14.019 oz Intake: IV Fluids 1999 451 NS (0.9%) 1999 451 IVPB 1903 NS (0.9%) 1903 Medicated IV 573 CC - Norepinephrine/ 318 Levophed CC - Propofol/Diprivan 255 Output: NG Tube Drainage Amount 150 150 Babin 250 415 O2/Vent: AC 20/500/+10/70%, sat 100% Infusions: propofol, levophed, ns 100cc/hour Current Medications: Albuterol (Ventolin 2.5 Mg/3 Ml Neb.Lisa*) 2.5 mg INH Q4H PRN PRN Reason: SOB/WHEEZING Last Admin: 06/30/17 08:19 Dose: 2.5 mg Albuterol/Ipratropium (Duoneb (Albuterol 2.5 Mg/Ipratropium 0.5 Mg)) 1 neb INH Q4H PRN PRN Reason: SOB/WHEEZING Last Admin: 06/30/17 08:37 Dose: 1 neb Chlorhexidine Gluconate (Peridex Mouth Wash 0.12%*) 15 ml SWISH SPIT Q4H LAY Last Admin: 06/30/17 04:19 Dose: 15 ml Heparin Sodium (Porcine) (Heparin Flush Picc/Ml/Cvc(*)) 0 ml FLUSH 0600,1800 LAY PRN Reason: Protocol Last Admin: 06/30/17 06:09 Dose: Not Given Heparin Sodium (Porcine) (Heparin Vial(*)) 5,000 units SUBCUT Q8HR [facility] Propofol (Diprivan*) 100 mls @ 15.513 mls/hr IV .(Initial Rate) LAY; 20 MCG/KG/ MIN PRN Reason: Protocol Last Admin: 06/30/17 06:09 Dose: 32.4 mls/hr Norepinephrine Bitartrate (Levophed 16 Mcg/Ml Premix Bag*) 4,000 mcg in 250 mls @ 18.75 mls/hr IV .INITIAL RATE LAY PRN Reason: 5 MCG/MIN Last Admin: 06/30/17 02:58 Dose: 26.3 mls/hr Famotidine 20 mg/ Sodium (Chloride) 102 mls @ 408 mls/hr IVPB BID [facility] Last Admin: 06/29/17 21:05 Dose: 408 mls/hr Piperacillin Sod/Tazobactam (Sod 3.375 gm/ Sodium Chloride) 100 mls @ 25 mls/ hr IVPB Q8H [facility] Last Admin: 06/30/17 05:00 Dose: 25 mls/hr Sodium Chloride (Ns 0.9% 1000 Ml*) 1,000 mls @ 75 mls/hr IV PER RATE [facility] Last Admin: 06/29/17 19:30 Dose: 75 mls/hr Amiodarone HCl (Nexterone Drip*) 150 mg in 100 mls @ 600 mls/hr IV ONCE PRN PRN Reason: IF RUNS OF VT Vancomycin HCl 1,250 mg/ (Sodium Chloride) 250 mls @ 166.667 mls/hr IVPB Q8H [facility] Last Admin: 06/30/17 01:58 Dose: 166.667 mls/hr Insulin Human Regular (Insulin Regular(*)) 0 units SUBCUT Q4H [facility] PRN Reason: Protocol Last Admin: 06/30/17 09:01 Dose: Not Given Meperidine HCl (Demerol Syringe*) 25 mg IV Q6HR PRN PRN Reason: shivering Methylprednisolone Sodium Succinate (Solu-Medrol 125mg *) 60 mg IV Q8H [facility] Midazolam HCl (Versed 2mg/2ml*) 2 mg IV Q1H PRN PRN Reason: TONIC CLONIC MOVEMENT Pharmacy Consult (Zosyn Per Pharmacy*) 1 note FOLLOW UP .ZOSYN PER PHARMACY LAY Pharmacy Consult (Vancomycin Per Pharmacy*) 1 note FOLLOW UP . PRN PRN Reason: PER PROTOCOL Pharmacy Profile Note (Vancomycin Trough Check) 1 note FOLLOW UP 1630 ONE Stop: 06/30/17 16:31 Physical Exam: General: intubated, nonresponsive. Head: normocephalic, atraumatic HEENT: no pallor, no icterus, moist mucous membranes Neck: soft, supple, no jvd, no stridor CVS: bradycardia, normal rhythm, no murmur Resp: bilateral air entry, diffuse rhonchi and wheeze+, no rhales, no acc muscle use Abdomen: soft, obese, nontender, nondistended Ext: pulses+ via dopppler due to edema, diffusely cool, 3+ edema LE Skin: intact, no breakdown, dry/changes of chronic edema Neuro: intubated, unresponsive, unable to assess due to sedation; pupils bilaterally constricted 1mm; unable to assess gag/cough. Labs: Laboratory Results - last 24 hr 06/29/17 06/29/17 06/29/17 12:08 12:08 12:08 WBC 19.8 H RBC 3.92 L Hgb 11.0 L Hct 34 L MCV 88 MCH 28 MCHC 32 RDW 17 H Plt Count 402 MPV 7 L Neut % (Auto) 94.5 H Lymph % (Auto) 3.3 L Metcalfe % (Auto) 1.8 Eos % (Auto) 0.1 Baso % (Auto) 0.3 Absolute Neuts (auto) 18.7 H Absolute Lymphs (auto) 0.7 L Absolute Monos (auto) 0.4 Absolute Eos (auto) 0 Absolute Basos (auto) 0.1 Absolute Nucleated RBC 0.01 Nucleated RBC % 0 INR (Anticoag Therapy) Patient Temperature ABG pH ABG pCO2 ABG pO2 ABG HCO3 ABG O2 Saturation ABG Base Excess Respiration Rate Ventilator Type Vent Mode FiO2 Inspiratory Time PEEP Pressure Support Pressure Control EPAP IPAP BiPAP Sodium 120 L Potassium 4.4 Chloride 87 L Carbon Dioxide 23 Anion Gap 10 BUN 12 Creatinine 1.08 Est GFR ( Amer) 88.0 Est GFR (Non-Af Amer) 68.4 BUN/Creatinine Ratio 11.1 Glucose 172 H POC Glucose (mg/dL) Lactic Acid 4.2 H* Calcium 8.0 L Magnesium 1.8 L Total Bilirubin 0.80 AST 55 H ALT 43 Alkaline Phosphatase 92 Troponin I 0.05 H* B-Natriuretic Peptide Total Protein 6.3 L Albumin 2.8 L Globulin 3.5 Albumin/Globulin Ratio 0.8 L TSH 12.73 H Free T4 Free T3 Urine Color Urine Appearance Urine pH Ur Specific [place] Urine Protein Urine Ketones Urine Blood Urine Nitrate Urine Bilirubin Urine Urobilinogen Ur Leukocyte Esterase Urine WBC (Auto) Urine RBC (Auto) Urine Bacteria Hyaline Casts Urine Sperm Urine Glucose 06/29/17 06/29/17 06/29/17 12:08 12:08 12:33 WBC RBC Hgb Hct MCV MCH MCHC RDW Plt Count MPV Neut % (Auto) Lymph % (Auto) [place]cal[place] % (Auto) Eos % (Auto) Baso % (Auto) Absolute Neuts (auto) Absolute Lymphs (auto) Absolute Monos (auto) Absolute Eos (auto) Absolute Basos (auto) Absolute Nucleated RBC Nucleated RBC % INR (Anticoag Therapy) 1.28 H Patient Temperature ABG pH ABG pCO2 ABG pO2 ABG HCO3 ABG O2 Saturation ABG Base Excess Respiration Rate Ventilator Type Vent Mode FiO2 Inspiratory Time PEEP Pressure Support Pressure Control EPAP IPAP BiPAP Sodium Potassium Chloride Carbon Dioxide Anion Gap BUN Creatinine Est GFR ( Amer) Est GFR (Non-Af Amer) BUN/Creatinine Ratio Glucose POC Glucose (mg/dL) Lactic Acid Calcium Magnesium Total Bilirubin AST ALT Alkaline Phosphatase Troponin I B-Natriuretic Peptide 593 H Total Protein Albumin Globulin Albumin/Globulin Ratio TSH Free T4 Free T3 Urine Color Yellow Urine Appearance Clear Urine pH 7.0 Ur Specific [place] 1.013 Urine Protein 2+(100 mg/dl) H Urine Ketones Negative Urine Blood 1+ H Urine Nitrate Negative Urine Bilirubin Negative Urine Urobilinogen Negative Ur Leukocyte Esterase Negative Urine WBC (Auto) Trace(0-5/hpf) Urine RBC (Auto) Trace(0-2/hpf) Urine Bacteria Absent Hyaline Casts Present H Urine Sperm Present H Urine Glucose Negative 06/29/17 06/29/17 06/29/17 15:10 18:28 18:35 WBC RBC Hgb Hct MCV MCH MCHC RDW Plt Count MPV Neut % (Auto) Lymph % (Auto) [place] % (Auto) Eos % (Auto) Baso % (Auto) Absolute Neuts (auto) Absolute Lymphs (auto) Absolute Monos (auto) Absolute Eos (auto) Absolute Basos (auto) Absolute Nucleated RBC Nucleated RBC % INR (Anticoag Therapy) Patient Temperature Not Reportable Not Reportable ABG pH 7.25 L 7.32 L ABG pCO2 62 H 49 H ABG pO2 114 H 93 ABG HCO3 24.3 23.9 ABG O2 Saturation 99.4 H 98.4 H ABG Base Excess -0.8 -1.2 Respiration Rate 16 20 Ventilator Type 500 500 Vent Mode cmv Apvcmv FiO2 100 90 Inspiratory Time 1.0 1 PEEP 10 10 Pressure Support Not Reportable Not Reportable Pressure Control Not Reportable Not Reportable EPAP Not Reportable Not Reportable IPAP Not Reportable Not Reportable BiPAP Not Reportable Not Reportable Sodium Potassium Chloride Carbon Dioxide Anion Gap BUN Creatinine Est GFR ( Amer) Est GFR (Non-Af Amer) BUN/Creatinine Ratio Glucose POC Glucose (mg/dL) Lactic Acid 1.3 Calcium Magnesium Total Bilirubin AST ALT Alkaline Phosphatase Troponin I B-Natriuretic Peptide Total Protein Albumin Globulin Albumin/Globulin Ratio TSH Free T4 Free T3 Urine Color Urine Appearance Urine pH Ur Specific [place] Urine Protein Urine Ketones Urine Blood Urine Nitrate Urine Bilirubin Urine Urobilinogen Ur Leukocyte Esterase Urine WBC (Auto) Urine RBC (Auto) Urine Bacteria Hyaline Casts Urine Sperm Urine Glucose 06/29/17 06/29/17 06/30/17 20:40 23:40 04:13 WBC RBC Hgb Hct MCV MCH MCHC RDW Plt Count MPV Neut % (Auto) Lymph % (Auto) [place] % (Auto) Eos % (Auto) Baso % (Auto) Absolute Neuts (auto) Absolute Lymphs (auto) Absolute Monos (auto) Absolute Eos (auto) Absolute Basos (auto) Absolute Nucleated RBC Nucleated RBC % INR (Anticoag Therapy) Patient Temperature ABG pH ABG pCO2 ABG pO2 ABG HCO3 ABG O2 Saturation ABG Base Excess Respiration Rate Ventilator Type Vent Mode FiO2 Inspiratory Time PEEP Pressure Support Pressure Control EPAP IPAP BiPAP Sodium 119 L* Potassium 4.0 Chloride 87 L Carbon Dioxide 26 Anion Gap 6 BUN 17 Creatinine 1.43 H Est GFR ( Amer) 63.6 Est GFR (Non-Af Amer) 49.5 BUN/Creatinine Ratio 11.9 Glucose 130 H POC Glucose (mg/dL) 154 H 125 H Lactic Acid Calcium 8.1 L Magnesium Total Bilirubin AST ALT Alkaline Phosphatase Troponin I B-Natriuretic Peptide Total Protein Albumin Globulin Albumin/Globulin Ratio TSH Free T4 Free T3 Urine Color Urine Appearance Urine pH Ur Specific [place] Urine Protein Urine Ketones Urine Blood Urine Nitrate Urine Bilirubin Urine Urobilinogen Ur Leukocyte Esterase Urine WBC (Auto) Urine RBC (Auto) Urine Bacteria Hyaline Casts Urine Sperm Urine Glucose 06/30/17 06/30/17 06/30/17 05:45 05:45 05:45 WBC 13.6 H RBC 3.56 L Hgb 10.1 L Hct 31 L MCV 86 MCH 28 MCHC 33 RDW 17 H Plt Count 335 MPV 7 L Neut % (Auto) Lymph % (Auto) [place] % (Auto) Eos % (Auto) Baso % (Auto) Absolute Neuts (auto) Absolute Lymphs (auto) Absolute Monos (auto) Absolute Eos (auto) Absolute Basos (auto) Absolute Nucleated RBC Nucleated RBC % INR (Anticoag Therapy) 1.28 H Patient Temperature ABG pH ABG pCO2 ABG pO2 ABG HCO3 ABG O2 Saturation ABG Base Excess Respiration Rate Ventilator Type Vent Mode FiO2 Inspiratory Time PEEP Pressure Support Pressure Control EPAP IPAP BiPAP Sodium 120 L Potassium 4.0 Chloride 88 L Carbon Dioxide 24 Anion Gap 8 BUN 17 Creatinine 1.43 H Est GFR ( Amer) 63.6 Est GFR (Non-Af Amer) 49.5 BUN/Creatinine Ratio 11.9 Glucose 111 H POC Glucose (mg/dL) Lactic Acid Calcium 8.3 L Magnesium Total Bilirubin 0.80 AST 36 ALT 42 Alkaline Phosphatase 72 Troponin I B-Natriuretic Peptide Total Protein 5.8 L Albumin 2.8 L Globulin 3.0 Albumin/Globulin Ratio 0.9 L TSH Free T4 1.09 Free T3 1.40 L Urine Color Urine Appearance Urine pH Ur Specific [place] Urine Protein Urine Ketones Urine Blood Urine Nitrate Urine Bilirubin Urine Urobilinogen Ur Leukocyte Esterase Urine WBC (Auto) Urine RBC (Auto) Urine Bacteria Hyaline Casts Urine Sperm Urine Glucose 06/30/17 06/30/17 06/30/17 05:45 06:16 08:51 WBC RBC Hgb Hct MCV MCH MCHC RDW Plt Count MPV Neut % (Auto) Lymph % (Auto) [place] % (Auto) Eos % (Auto) Baso % (Auto) Absolute Neuts (auto) Absolute Lymphs (auto) Absolute Monos (auto) Absolute Eos (auto) Absolute Basos (auto) Absolute Nucleated RBC Nucleated RBC % INR (Anticoag Therapy) Patient Temperature 34.0 c ABG pH 7.40 ABG pCO2 34 L ABG pO2 210 H ABG HCO3 22.4 ABG O2 Saturation 99.9 H ABG Base Excess -3.2 L Respiration Rate 20 Ventilator Type Not Reportable Vent Mode Pcv FiO2 70 Inspiratory Time 1.1 PEEP 10 Pressure Support Not Reportable Pressure Control 27 EPAP Not Reportable IPAP Not Reportable BiPAP Not Reportable Sodium Potassium Chloride Carbon Dioxide Anion Gap BUN Creatinine Est GFR ( Amer) Est GFR (Non-Af Amer) BUN/Creatinine Ratio Glucose POC Glucose (mg/dL) 115 H Lactic Acid 1.8 Calcium Magnesium Total Bilirubin AST ALT Alkaline Phosphatase Troponin I B-Natriuretic Peptide Total Protein Albumin Globulin Albumin/Globulin Ratio TSH Free T4 Free T3 Urine Color Urine Appearance Urine pH Ur Specific [place] Urine Protein Urine Ketones Urine Blood Urine Nitrate Urine Bilirubin Urine Urobilinogen Ur Leukocyte Esterase Urine WBC (Auto) Urine RBC (Auto) Urine Bacteria Hyaline Casts Urine Sperm Urine Glucose Imaging: CXR 06/29 [facility] ett above sandra, ?congestion mild, left sided pleural effusion + which is moderate in size, unclear if infiltrate inderlying. No PTX present. CT head - mild cerebral edema+, no hemorrhage, diffuse anoxic injury suspected ( official reviewed) CT chest/abd/pelvis - moderate left pleural effusion partially loculated; bilateral infiltrates, short segment of dissection in infrarenal mid abd aorta ( official reviewed) CXR 06/30 - ett above sandra, left pleural effusion wtih underlying atelectasis/ infiltrate. right side is clear without effusion/infiltrate. Assessment: 67y M pmhx of CAD and VT, s/p CABG 04/2017 from [facility]; brought in via [facility] as OOH Cardiac Arrest, presented bradycardic and hypoxic. 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 noted less myoclonic activity. this is already a bad sign. unable to do full neuro exam due to sedation/ hypothermia. Cont propofol. for rewarming starting at 5pm today. Will obtain neuro consult once rewarming started. Obtain CT tomorrow. Neurology consult. ativan prn. Neurochecks q1h. demerol prn for shivering. CVS- remains on steady dose of levophed 6, MAP >65. On NS 100cc/hour, making urine. Positive balance noted now. unable to do CVP due to femoral line. No further VT noted, dopamine was discontinued, will resume PO amio, and IV amio if further VT. Remains bradycardic, likely from hypothermic effect. Would prefer dopamine for the bradycardia but will not risk VT. Cont levophed support for now. Can consider TVP if needed also. ECHO noted as with moderate LV systolic dysfunction with WMA; last echo at [place] with normal function prior to discharge. EKG unchanged, troponin minimal post arrest. Noted small infrarenal dissection, distal pulses intact, hold on intervention/vasc consult at this time given severe neurological insult. Vascular/pulse checks. Right femoral cooling cathetor/triple lumen cathetor in place. No acute ST changes or requirement for crime laboratory analyst at this time. Resp- on AC 70%, peep 10; abg with PO2>200; fio2 dec to 50%; now dec peep to 8. Repeat ABG at 2pm. Noted wheezing. albuterol q2h. Solumedrol 125mg x1 and then 60mg iv q8h. CXR with left effusion. Will discuss with family about thoracentesis, diagnostic/therapeutic. Will cover for pneumonia/HCAP given hospitalization last 3 months, IV zosyn/vanco. ID- wbc 13, cooling with temp 33-34C; reactive post arrest vs underlying sepsis. on empiric coverage. r/o pneumonia left side. Cont Zosyn and Vanco given critical status. GI- NPO, ngt to low intermittent wall suction. no further brown material from stomach. pepcid iv. Renal- ALEXANDRA noted, making urine, positive balance overall. Cont to check BMP q6- q8h, replete K, keep K>4. IVF NS 100cc/hour. Heme- hg stable. plt stable. no bleeding. DVT prophylaxis Endo- glycemic control, target BS<200 Musculsk- none Wounds- none; pressure ulcer prophylaxis Nutrition- NPO DVT prophylaxis: LE compression, heparin sq GI prophylaxis: Pepcid Central Line: right fem, 06/29 Arterial Line: right fem, 06/29 Babin Cathetor: yes Disposition: ICU post cardiac arrest, hypoxic respiratory failure, hypoxic encephelopathy Code Status: DNR discussion with sister and brother yesterday. They wished to have patient DNR status. cont medical treatment. Will re-eval after hypothermia completed and decide on next stages of care and goals of care depending on neurological status. Total Critical Care time is 45 minutes, excluding procedures/teaching Satinder Westbrook MD Bra[employer] Proofreader (Electronically Signed)
[2017-06-30] MEDS ORDERED: Famotidine IV* 10 MG/ML 2 ML (20 mg) ONE (09:03)
[2017-06-30] MEDS: NS 0.9% 1000 ML* 1,000 ML IV SCH (09:14)
[2017-06-30 09:59] LABS: Troponin I 0.06 ng/mL (<0.04)
[2017-06-30] MEDS: Midazolam* 1 MG/ML 2 ML VIAL (2 MG) IV PRN ×2 (10:04→14:44)
--- NOTE | 2017-06-30 11:25 | PN ---
Progress Note - Progress Note Date of Service: 06/30/17 Note: Thoracentesis Procedure Note Indication: large left pleural effusion, respiratory failure with hypoxia Diagnosis: Cardiac Arrest, Hypoxic Respiratory Failure Informed consent obtained from sister who is surrogate, placed in bedside chart. Risks and benefits of procedure, including but not limited to hemorrhage, pneumothorax, broncho/pulm fistula, infection were discussed. -Previous imaging and lab work (coags/platelets), medications were reviewed. -Full sterile precautions with Chlorhexidine/full drapes/gowns/gloves were utilized. -Ultrasound was used to visualize the appropriate intercostal space for access. -8-9th intercostal space on left was marked, SC lidocaine used for local anesthesia. -18 gauge needle was used to enter pleural space, while avoid neuro/vasc bundle. Entry into pleural space confirmed with return of dark fluid, and drainage cathetor was passed into space with good return of fluid to check confirmation -Fluid was drained in amount of 1400 cc -No immediate complications or hemodynamic instability during drainage noted -Cathetor was removed after drainage and dressing applied to chest wall site -Fluid sent for cell count/cytology/gram stain/culture and other indicated lab analysis Patient tolerated procedure well, no immediate complications noted. EBL - none CXR pending Satinder Westbrook MD [employer] Technical Architect (electronically signed)
[2017-06-30 12:02] LABS: Body Fluid WBC 2198 /mcL
[2017-06-30 12:06] LABS: Body Fluid Appearance Bloody
--- NOTE | 2017-06-30 12:12 | RAD ---
INDICATION: Left-sided thoracentesis COMPARISON: A 2016 TECHNIQUE: An AP portable view obtained at 1145 hours is submitted. FINDINGS: Bones/Soft Tissues: There are no acute bony findings. There is no endotracheal tube in proper position. A nasogastric tube passes normally through the mediastinum. There is sternotomy Cardiomediastinal: Cardiac silhouette and central pulmonary vessels are mildly prominent. Lungs: There is bibasilar airspace disease left greater than right. This could be related to compression atelectasis. There is no pneumothorax post thoracentesis Pleura: There are bilateral pleural effusions left greater than right. Left-sided effusion is smaller. Other: None IMPRESSION: ENDOTRACHEAL TUBE IN PROPER POSITION. VASCULAR CONGESTION WITH BILATERAL PLEURAL EFFUSIONS LEFT GREATER THAN RIGHT. LEFT-SIDED EFFUSION IS SMALLER POSTTHORACENTESIS. THERE IS NO PNEUMOTHORAX
[2017-06-30 13:35] LABS: Body Fluid Total Cells Counted 100
[2017-06-30] MEDS ORDERED: Alteplase (CATHFLO)* 2 MG VIAL IV ONE (13:35)
[2017-06-30] MEDS ORDERED: LORazepam INJ* 2 MG/ML 1 ML VIAL IV PUSH STA ×2 (14:19→14:31)
[2017-06-30] MEDS ORDERED: LORazepam INJ* 2 MG/ML 1 ML VIAL ONE ×2 (14:22→14:33)
[2017-06-30 14:23] LABS: PCO2 Arterial 41 mmHg (35-45)
[2017-06-30 14:35] LABS: BUN/Creatinine Ratio 12.2 (8-20); Calcium 7.7 mg/dL (8.6-10.3); EGFR African American 65.7 (>60); EGFR Non-African American 51.1 (>60); Potassium 3.5 mmol/L (3.5-5.0)
[2017-06-30] MEDS: Heparin VIAL(*) 5000 UNITS/ML VIAL (FIVE THOUSAND) SUBCUT SCH ×3 (14:59→21:54)
[2017-06-30] MEDS ORDERED: Midazolam PREMIX BAG 1 MG/ML* 100 MG/100 ML BAG IV SCH ×2 (15:00)
[2017-06-30] MEDS: methylPREDNISolone 125 MG* 2 ML VIAL IV SCH ×2 (15:11→23:25)
[2017-06-30 16:28] LABS: PCO2 Arterial 45 mmHg (35-45)
[2017-06-30] MEDS ORDERED: Vancomycin Trough Check NOTE FOLLOW UP ONE (16:30)
[2017-06-30 19:55] LABS: FIO2 50; Patient Temp ABG 35 C
[2017-06-30 20:04] LABS: PCO2 Arterial 40 mmHg (35-45)
--- NOTE | 2017-06-30 21:34 | CONS ---
NEUROLOGY CONSULTATION: DATE OF CONSULT: 06/30/17 LOCATION: The patient is in ICU bed 7. REQUESTING PHYSICIAN: Dr. Satinder Westbrook. 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 HISTORY OF PRESENT ILLNESS: Elder Patiño is a 67-year-old man with a history of morbid obesity as well as coronary artery disease and ventricular tachycardia, who was recently admitted in April, found to have coronary artery disease and sent to [facility] for CABG. Yesterday, he was at home in his yard waiting for a ride to go to an appointment when he was witnessed to collapse. This occurred around 9:30 yesterday morning. EMS was called and he was found pulseless and CPR was started. Return of circulation was obtained and the downtime is thought to be somewhere between 5 and 10 minutes at that point. In [facility], he was bradycardic with saturations into the upper 80s and was then intubated. He subsequently arrested again with another downtime of maybe 5 minutes. He was then transferred to [facility] and was somewhat hypothermic upon admission to our facility at 96.6F. He underwent hypothermia protocol and is now rewarming with a temperature of approximately 34.2C at this point. Even yesterday, he was noted to have some myoclonic jerking and this has worsened significantly today. CT scan of the brain yesterday showed sulcal effacement concerning for diffuse anoxic injury. Given the myoclonus, he has been placed on a higher dose of propofol and was given 4 mg of Ativan IV recently as well as 2 mg of IV Versed and then started on a Versed drip of 4 mg per hour. This has settled down the myoclonus. Dr. Satinder Westbrook reports that his exam has not been promising today with no corneal responses, no gag, and at one point pupillary responses were recorded earlier in the day, possibly overnight, but now pupils are pinpoint. Neurology consultation is requested secondary to the myoclonus. PAST MEDICAL HISTORY: 1. Morbid obesity. 2. CAD. 3. Recent CABG. MEDICATIONS: Home medications: These are not yet recorded in the electronic medical record. HOSPITAL MEDICATIONS: 1. Amiodarone prn 2. Famotidine. 3. Heparin 5000 units subcu q.8. 4. Insulin sliding scale. 5. Solu-Medrol 60 mg q.8. 6. Versed 4 mg per hour drip. 7. Levophed. 8. Zosyn. 9. Propofol 20 mcg/kg per minute. 10. Vancomycin. 11. Ativan 2 mg IV x2 administered at 1424 and 1434. 12. In addition 2 mg of midazolam administered at 1444. ALLERGIES: No known drug allergies. FAMILY HISTORY: CAD in the mother and father. SOCIAL HISTORY: He is a psuc-uyiy-a-day smoker for 50 years. No recent alcohol use. REVIEW OF SYSTEMS: Not obtainable. PHYSICAL EXAM: Vital Signs: Temperature 93.6, blood pressure 101/50, heart rate 57, oxygen saturation 97% on the ventilator. On general examination, he is a morbidly obese man, intubated in the ICU. Heart is in regular rate and rhythm. He has venous stasis changes over the lower extremities. On neurologic examination, he is unresponsive. Pupils are pinpoint and not clearly reactive. VORs are absent. Corneal's are absent. There is no gag reflex. He is breathing over the ventilator. Tone in the upper and lower extremities is flaccid. There is no withdrawal to pain. DIAGNOSTIC STUDIES/LAB DATA: CBC shows white count of 13.6, hemoglobin 10.1, hematocrit of 31, and platelets of 335. INR 1.28. Blood gas at 1400 shows a pH of 7.28, PCO2 of 41, PO2 of 94, bicarb 19.4. BMP shows a sodium of 125, chloride 95, CO2 19, and creatinine 1.39 which is up from his admission creatinine of 1.08. Glucose is 136 and calcium is 7.7. Ammonia is 39. TSH was 12.73 yesterday, free T4 1.09, and free T3 low at 1.4. LFTs were normal this morning. Urinalysis is overall unremarkable. Brain CT from yesterday was personally reviewed and shows loss of thompson-white differentiation with sulcal effacement globally, but especially in the posterior fossa as well as the frontal greater than parietal lobe concerning for diffuse anoxic injury. He had a chest, abdomen, and pelvis CTA, which showed no evidence of PE. There is some small pericardial effusion. There is a moderate-sized partially loculated left pleural effusion. There are bilateral pleural infiltrates. There is a short- segment dissection of the infrarenal midabdominal aorta. There is also an anterior abdominal wall hernia containing fat, and hepatic steatosis. IMPRESSION AND PLAN: Elder Patiño is a 67-year-old man with a history of coronary artery disease, status post recent coronary artery bypass graft, who experienced an [id number] cardiac arrest and subsequently had another cardiac arrest while at [facility]. The total downtime is estimated to be somewhere between 10 and 15 minutes. Within the first 24 hours, he has exhibited diffuse myoclonus and imaging shows generalized sulcal effacement concerning for diffuse anoxic injury. These are poor prognostic indicators at this point. He is still rewarming and is requiring significant sedating medications to control his myoclonus. I do not think an EEG is going to clinical data management director at this point and so we will continue him overnight on sedation, allow him to rewarm and I will plan to try to examine him off sedation tomorrow morning around 9 a.m. I have communicated this plan to the nurse and have asked for propofol and Versed to be held prior to this examination. No family was at the bedside at the time of this consultation. Thank you for this consultation. [id number]/[facility] #: [id number] BOBBY
[2017-07-01] MEDS: Insulin REGULAR(*) 1 UNITS UNIT SUBCUT SCH ×6 (00:17→21:44)
[2017-07-01] MEDS: Chlorhexidine MOUTHWASH 0.12%* 15 ML UDC SWISH SPIT SCH ×6 (00:17→20:30)
[2017-07-01] MEDS: Propofol* 100 ML IV SCH ×7 (01:58→23:01)
[2017-07-01] MEDS: Norepinephrine 16MCG/ML IVPRE* 4,000 MCG/250 ML BAG IV SCH ×2 (03:02→18:44)
[2017-07-01] MEDS: Albuterol/Ipratropium NEB.SOL* Albuterol 2.5 MG/Ipratropium 0.5 MG 3 ML INH PRN ×2 (04:00→09:20)
[2017-07-01 04:37] LABS: FIO2 45; Patient Temp ABG 36.6; Resp Rate 28
[2017-07-01 04:40] LABS: Hematocrit 29 % (42-52); Hemoglobin 9.6 g/dl (14.0-18.0); Mean Corpuscular HGB Conc 33 g/dl (31-36); Mean Corpuscular Hemoglobin 28 pg (27-31); Mean Corpuscular Volume 86 fL (80-94); Mean Platelet Volume 7 um3 (7.4-10.4); PCO2 Arterial 37 mmHg (35-45); Red Blood Count 3.39 10^6/ul (4.0-5.4); Red Cell Distribution Width 17 % (10.5-15); White Blood Count 13.1 10^3/ul (3.5-10.8)
[2017-07-01] MEDS: ZOSYN 3.375 GM Q8H per EXTENDED INFUSION IVPB SCH ×6 (04:42→20:30)
[2017-07-01 04:57] LABS: Albumin 2.6 g/dL (3.2-5.2); BUN/Creatinine Ratio 10.5 (8-20); Calcium 8.2 mg/dL (8.6-10.3); EGFR African American 51.8 (>60); EGFR Non-African American 40.3 (>60); Globulin 3.1 g/dL (2-4); Potassium 3.9 mmol/L (3.5-5.0); Total Bilirubin 0.5 mg/dL (0.2-1.0); Total Protein 5.7 g/dL (6.4-8.9)
[2017-07-01 05:02] LABS: Vancomycin Random 24.3 mcg/mL
[2017-07-01] MEDS ORDERED: Vancomycin Random Level* NOTE FOLLOW UP ONE (06:00)
[2017-07-01] MEDS: Heparin VIAL(*) 5000 UNITS/ML VIAL (FIVE THOUSAND) SUBCUT SCH ×3 (06:16→22:14)
[2017-07-01] MEDS: methylPREDNISolone 125 MG* 2 ML VIAL IV SCH ×3 (07:19→23:18)
--- NOTE | 2017-07-01 08:06 | RAD ---
HISTORY: Status post cardiac arrest COMPARISONS: June 29, 2017 TECHNIQUE: Multiple contiguous axial CT scans were obtained of the head without intravenous contrast. FINDINGS: HEMORRHAGE/INFARCT: There is persistent diffuse loss of thompson-white differentiation, somewhat improved from the previous examination. Elsewhere, there is no hemorrhage or acute infarct. MASSES/SHIFT: There is no mass or shift. EXTRA-AXIAL SPACES: There are no extra-axial fluid collections. SULCI AND VENTRICLES: There is mild persistent but somewhat improved diffuse sulcal effacement. CEREBRUM: As noted above, there is persistent loss of thompson-white differentiation, with somewhat better definition of the basal ganglia compared to the previous examination. BRAINSTEM: There are no focal parenchymal abnormalities. CEREBELLUM: There are no focal parenchymal abnormalities. VESSELS: The vessels are grossly normal. PARANASAL SINUSES: The paranasal sinuses are clear. ORBITS: The orbits are unremarkable. BONES AND SOFT TISSUE: No bone or soft tissue abnormalities are noted. OTHER: None IMPRESSION: THERE IS PERSISTENT DIFFUSE LOSS OF THOMPSON-WHITE DIFFERENTIATION WITH SOMEWHAT IMPROVED DEFINITION OF THE BASAL GANGLIA. GIVEN THE HISTORY OF CARDIAC ARREST, THIS IS CONCERNING FOR DIFFUSE ANOXIC INJURY, WITH PERSISTENT BUT IMPROVING CEREBRAL EDEMA. RECOMMEND CONTINUED ATTENTION ON FOLLOW-UP IMAGING AND CONSIDERATION OF CORRELATION WITH MRI OF THE BRAIN.
--- NOTE | 2017-07-01 08:58 | RAD ---
HISTORY: effusion COMPARISONS: June 30, 2017 VIEWS:1: Single frontal portable view of the chest at 8:40 AM FINDINGS: LINES AND TUBES: An endotracheal tube is noted with tip overlying the trachea at the level clavicles. A gastric tube is noted. The tip is below the [id number] the current examination but is below the diaphragm. CARDIOMEDIASTINAL SILHOUETTE: The cardiomediastinal silhouette is normal for portable technique. PLEURA: Bilateral, left greater than right pleural effusions, stable LUNG PARENCHYMA: There is patchy alveolar opacification lung bases bilaterally. ABDOMEN: The upper abdomen is clear. There is no subphrenic gas. BONES AND SOFT TISSUES: The patient is status post median sternotomy. IMPRESSION: 1. LINES AND TUBES ABOVE. 2. BILATERAL PLEURAL EFFUSIONS WITH BIBASILAR ATELECTASIS VERSUS CONSOLIDATION
--- NOTE | 2017-07-01 09:30 | PN ---
Progress Note - Progress Note Date of Service: 07/01/17 Note: Progress Note - Critical Care 24 hour events: -remains intubated, on sedation; unable to obtain ROS due to previous mentioned -noted more myoclonic/seizure like activity yesterday, responded to ativan/ versed; started versed infusion -this morning CT head done, d/c versed at 7am; on mild propofol only due to tachypnea -neurology has seen patient also. -almost euthermic, cooling complete/warming complete. system maintaining euthermia. -still had rhonchi, needed increased RR/TV due to hypercapnea/met acidosis Tele: NSR; bradycardia improved after warming Vitals: Vital Signs Temp 97.9 F 07/01/17 09:00 Pulse 70 07/01/17 09:21 Resp 28 07/01/17 09:21 BP 109/55 07/01/17 06:29 Pulse Ox 94 07/01/17 09:21 Intake & Output 06/30/17 07/01/17 07/01/17 18:59 06:59 18:59 Intake Total 1536 2052 1 Output Total 914 859 110 Balance 622 1193 -109 Weight 303 lb 12.752 oz Intake: IV Fluids 572 980 NS (0.9%) 572 980 IVPB 503 199 NS (0.9%) 503 199 Medicated IV 461 873 CC - Norepinephrine/ 175 340 Levophed CC - Propofol/Diprivan 286 481 Midalozam/VERSED 52 IV Narcotic Infusion 1 Versed 1 Oral 0 0 Intake, OG Tube Irrigate 0 Amount OGT 0 Output: NG Tube Drainage Amount 0 10 G Tube 50 Urine 37 0 Babin 877 799 110 O2/Vent: AC 28/550/+5/45%, sat 96% Infusions: propofol 15, levophed 4, versed off, ns 100cc/hour Current Medications: Albuterol (Ventolin 2.5 Mg/3 Ml Neb.Lisa*) 2.5 mg INH Q4H PRN PRN Reason: SOB/WHEEZING Last Admin: 06/30/17 12:52 Dose: 2.5 mg Albuterol/Ipratropium (Duoneb (Albuterol 2.5 Mg/Ipratropium 0.5 Mg)) 1 neb INH Q4H PRN PRN Reason: SOB/WHEEZING Last Admin: 07/01/17 09:20 Dose: 1 neb Chlorhexidine Gluconate (Peridex Mouth Wash 0.12%*) 15 ml SWISH SPIT Q4H [facility] Last Admin: 07/01/17 07:19 Dose: 15 ml Heparin Sodium (Porcine) (Heparin Flush Picc/Ml/Cvc(*)) 0 ml FLUSH 0600,1800 LAY PRN Reason: Protocol Last Admin: 07/01/17 04:43 Dose: 5 ml Heparin Sodium (Porcine) (Heparin Vial(*)) 5,000 units SUBCUT Q8HR [facility] Last Admin: 07/01/17 06:16 Dose: 5,000 units Propofol (Diprivan*) 100 mls @ 15.513 mls/hr IV .(Initial Rate) LAY; 20 MCG/KG/ MIN PRN Reason: Protocol Last Admin: 07/01/17 09:13 Dose: 20.1 mls/hr Norepinephrine Bitartrate (Levophed 16 Mcg/Ml Premix Bag*) 4,000 mcg in 250 mls @ 18.75 mls/hr IV .INITIAL RATE LAY PRN Reason: 5 MCG/MIN Last Admin: 07/01/17 03:02 Dose: 18.75 mls/hr Famotidine 20 mg/ Sodium (Chloride) 102 mls @ 408 mls/hr IVPB BID [facility] Last Admin: 07/01/17 09:00 Dose: 408 mls/hr Piperacillin Sod/Tazobactam (Sod 3.375 gm/ Sodium Chloride) 100 mls @ 25 mls/ hr IVPB Q8H [facility] Last Admin: 07/01/17 04:42 Dose: 25 mls/hr Sodium Chloride (Ns 0.9% 1000 Ml*) 1,000 mls @ 75 mls/hr IV PER RATE [facility] Last Admin: 06/30/17 09:14 Dose: 75 mls/hr Amiodarone HCl (Nexterone Drip*) 150 mg in 100 mls @ 600 mls/hr IV ONCE PRN PRN Reason: IF RUNS OF VT Midazolam HCl (Versed Premix Bag 1 Mg/Ml*) 100 mg in 100 mls @ 4 mls/hr IV .Q24H [facility] Last Admin: 07/01/17 01:58 Dose: 4 mls/hr Insulin Human Regular (Insulin Regular(*)) 0 units SUBCUT Q4H [facility] PRN Reason: Protocol Last Admin: 07/01/17 09:00 Dose: 3 units Meperidine HCl (Demerol Syringe*) 25 mg IV Q6HR PRN PRN Reason: shivering Methylprednisolone Sodium Succinate (Solu-Medrol 125mg *) 60 mg IV Q8H [facility] Last Admin: 07/01/17 07:19 Dose: 60 mg Midazolam HCl (Versed 2mg/2ml*) 2 mg IV Q1H PRN PRN Reason: TONIC CLONIC MOVEMENT Last Admin: 06/30/17 14:44 Dose: 2 mg Pharmacy Consult (Zosyn Per Pharmacy*) 1 note FOLLOW UP .ZOSYN PER PHARMACY [facility] Pharmacy Consult (Vancomycin Per Pharmacy*) 1 note FOLLOW UP . PRN PRN Reason: PER PROTOCOL Physical Exam: General: intubated, nonresponsive. Head: normocephalic, atraumatic HEENT: no pallor, no icterus, moist mucous membranes Neck: soft, supple, no jvd, no stridor CVS: normal rate, normal rhythm, no murmur Resp: bilateral air entry, rhonchi improved, mild rhonchi on right base only, no wheeze, no rhales, no acc muscle use Abdomen: soft, obese, nontender, nondistended Ext: pulses+ via dopppler due to edema, warm ext, 3+ edema LE Skin: intact, no breakdown, dry/changes of chronic edema Neuro: intubated, unresponsive, on mild sedation; corneal reflex+ bilaterally, pupils bilaterally 1-2mm and reactive to light; gag-, cough-; no withdrawal to painful stimuli. Labs: Laboratory Results - last 24 hr 06/30/17 06/30/17 06/30/17 05:45 11:00 12:15 WBC RBC Hgb Hct MCV MCH MCHC RDW Plt Count MPV Patient Temperature ABG pH ABG pCO2 ABG pO2 ABG HCO3 ABG O2 Saturation ABG Base Excess Respiration Rate O2 Delivery Device Ventilator Type Vent Mode FiO2 Inspiratory Time PEEP Pressure Support Pressure Control EPAP IPAP BiPAP Sodium Potassium Chloride Carbon Dioxide Anion Gap BUN Creatinine Est GFR ( Amer) Est GFR (Non-Af Amer) BUN/Creatinine Ratio Glucose POC Glucose (mg/dL) 143 H Lactic Acid Calcium Total Bilirubin AST ALT Alkaline Phosphatase Ammonia Troponin I 0.06 H* Total Protein Albumin Globulin Albumin/Globulin Ratio Fluid Source Pleural fluid Fluid Volume 8 Fluid Color Red Fluid Appearance Bloody Fluid WBC 2198 Fluid RBC 52582 Fluid Tot Cell Count 100 Fluid Neutrophils 10 Fluid Lymphocytes 67 Fluid Monocytes 23 Fluid Cell Count Rvw By Vancomycin Trough Random Vancomycin 06/30/17 06/30/17 06/30/17 14:00 14:00 14:00 WBC RBC Hgb Hct MCV MCH MCHC RDW Plt Count MPV Patient Temperature ABG pH 7.28 L ABG pCO2 41 ABG pO2 94 ABG HCO3 19.4 ABG O2 Saturation 97.7 ABG Base Excess -7.0 L Respiration Rate O2 Delivery Device Ventilator Type Vent Mode FiO2 Inspiratory Time PEEP Pressure Support Pressure Control EPAP IPAP BiPAP Sodium 125 L Potassium 3.5 Chloride 95 L Carbon Dioxide 19 L Anion Gap 11 BUN 17 Creatinine 1.39 H Est GFR ( Amer) 65.7 Est GFR (Non-Af Amer) 51.1 BUN/Creatinine Ratio 12.2 Glucose 136 H POC Glucose (mg/dL) Lactic Acid Calcium 7.7 L Total Bilirubin AST ALT Alkaline Phosphatase Ammonia 39 Troponin I Total Protein Albumin Globulin Albumin/Globulin Ratio Fluid Source Fluid Volume Fluid Color Fluid Appearance Fluid WBC Fluid RBC Fluid Tot Cell Count Fluid Neutrophils Fluid Lymphocytes Fluid Monocytes Fluid Cell Count Rvw By Vancomycin Trough Random Vancomycin 06/30/17 06/30/17 06/30/17 14:00 16:00 16:00 WBC RBC Hgb Hct MCV MCH MCHC RDW Plt Count MPV Patient Temperature ABG pH 7.26 L ABG pCO2 45 ABG pO2 90 ABG HCO3 19.8 ABG O2 Saturation 98.6 H ABG Base Excess -6.6 L Respiration Rate O2 Delivery Device Ventilator Type Vent Mode FiO2 Inspiratory Time PEEP Pressure Support Pressure Control EPAP IPAP BiPAP Sodium Potassium Chloride Carbon Dioxide Anion Gap BUN Creatinine Est GFR ( Amer) Est GFR (Non-Af Amer) BUN/Creatinine Ratio Glucose POC Glucose (mg/dL) Lactic Acid 1.9 Calcium Total Bilirubin AST ALT Alkaline Phosphatase Ammonia Troponin I Total Protein Albumin Globulin Albumin/Globulin Ratio Fluid Source Fluid Volume Fluid Color Fluid Appearance Fluid WBC Fluid RBC Fluid Tot Cell Count Fluid Neutrophils Fluid Lymphocytes Fluid Monocytes Fluid Cell Count Rvw By Vancomycin Trough 29.2 Random Vancomycin 06/30/17 06/30/17 06/30/17 16:31 19:40 20:10 WBC RBC Hgb Hct MCV MCH MCHC RDW Plt Count MPV Patient Temperature 35 c ABG pH 7.32 L ABG pCO2 40 ABG pO2 135 H ABG HCO3 21.0 ABG O2 Saturation 99.5 H ABG Base Excess -5.1 L Respiration Rate Not Reportable O2 Delivery Device Ventilator Type Not Reportable Vent Mode Apv FiO2 50 Inspiratory Time Not Reportable PEEP 5 Pressure Support Not Reportable Pressure Control Not Reportable EPAP Not Reportable IPAP Not Reportable BiPAP Not Reportable Sodium Potassium Chloride Carbon Dioxide Anion Gap BUN Creatinine Est GFR ( Amer) Est GFR (Non-Af Amer) BUN/Creatinine Ratio Glucose POC Glucose (mg/dL) 168 H 194 H Lactic Acid Calcium Total Bilirubin AST ALT Alkaline Phosphatase Ammonia Troponin I Total Protein Albumin Globulin Albumin/Globulin Ratio Fluid Source Fluid Volume Fluid Color Fluid Appearance Fluid WBC Fluid RBC Fluid Tot Cell Count Fluid Neutrophils Fluid Lymphocytes Fluid Monocytes Fluid Cell Count Rvw By Vancomycin Trough Random Vancomycin 07/01/17 07/01/17 07/01/17 00:02 04:20 04:20 WBC 13.1 H RBC 3.39 L Hgb 9.6 L Hct 29 L MCV 86 MCH 28 MCHC 33 RDW 17 H Plt Count 321 MPV 7 L Patient Temperature 36.6 ABG pH 7.39 ABG pCO2 37 ABG pO2 111 H ABG HCO3 23.1 ABG O2 Saturation 99.2 H ABG Base Excess -2.3 L Respiration Rate 28 O2 Delivery Device ventilator Ventilator Type Not Reportable Vent Mode apv FiO2 45 Inspiratory Time Not Reportable PEEP 5 Pressure Support Not Reportable Pressure Control Not Reportable EPAP Not Reportable IPAP Not Reportable BiPAP Not Reportable Sodium Potassium Chloride Carbon Dioxide Anion Gap BUN Creatinine Est GFR ( Amer) Est GFR (Non-Af Amer) BUN/Creatinine Ratio Glucose POC Glucose (mg/dL) 189 H Lactic Acid Calcium Total Bilirubin AST ALT Alkaline Phosphatase Ammonia Troponin I Total Protein Albumin Globulin Albumin/Globulin Ratio Fluid Source Fluid Volume Fluid Color Fluid Appearance Fluid WBC Fluid RBC Fluid Tot Cell Count Fluid Neutrophils Fluid Lymphocytes Fluid Monocytes Fluid Cell Count Rvw By Vancomycin Trough Random Vancomycin 07/01/17 07/01/17 07/01/17 04:20 04:25 08:37 WBC RBC Hgb Hct MCV MCH MCHC RDW Plt Count MPV Patient Temperature ABG pH ABG pCO2 ABG pO2 ABG HCO3 ABG O2 Saturation ABG Base Excess Respiration Rate O2 Delivery Device Ventilator Type Vent Mode FiO2 Inspiratory Time PEEP Pressure Support Pressure Control EPAP IPAP BiPAP Sodium 125 L Potassium 3.9 Chloride 94 L Carbon Dioxide 22 Anion Gap 9 BUN 18 Creatinine 1.71 H Est GFR ( Amer) 51.8 Est GFR (Non-Af Amer) 40.3 BUN/Creatinine Ratio 10.5 Glucose 153 H POC Glucose (mg/dL) 168 H 158 H Lactic Acid Calcium 8.2 L Total Bilirubin 0.50 AST 27 ALT 35 Alkaline Phosphatase 68 Ammonia Troponin I Total Protein 5.7 L Albumin 2.6 L Globulin 3.1 Albumin/Globulin Ratio 0.8 L Fluid Source Fluid Volume Fluid Color Fluid Appearance Fluid WBC Fluid RBC Fluid Tot Cell Count Fluid Neutrophils Fluid Lymphocytes Fluid Monocytes Fluid Cell Count Rvw By Vancomycin Trough Random Vancomycin 24.3 Imaging: CXR 06/29 [facility] ER ett above sandra, ?congestion mild, left sided pleural effusion + which is moderate in size, unclear if infiltrate inderlying. No PTX present. CT head - mild cerebral edema+, no hemorrhage, diffuse anoxic injury suspected ( official reviewed) CT chest/abd/pelvis - moderate left pleural effusion partially loculated; bilateral infiltrates, short segment of dissection in infrarenal mid abd aorta ( official reviewed) CXR 06/30 - ett above sandra, left pleural effusion wtih underlying atelectasis/ infiltrate. right side is clear without effusion/infiltrate. cxr 07/01 - ett above sandra; no clear infiltrate; left small effusion noted. ct brain 07/01 - cerebral edema + but slight improvement from priro 06/29 study. anoxic brain injury+ Assessment: 67y M pmhx of CAD and VT, s/p CABG 04/2017 from [facility]; brought in via [facility] as OOH Cardiac Arrest, presented bradycardic and hypoxic. -Cardiac Arrest, PEA vs bradycardic; s/p therap hypothermia 06/29 -Acute Hypoxic Respiratory Failure -Hypoxic-ischemic encephalopathy -ALEXANDRA, likely from hypoxic/ischemic ATN -Left Pleural effusion, partially loculated -r/o pneumonia -Pulmonary Congestion -short infrarenal mid aortic dissection -Ventricular Tachycardia -CAD s/p CABG -Ischemic CMP; now with acute moderate LV systolic dysfunction, likely post arrest stunning Plan: Neuro- post arrest, s/p hypothermia protocol. off versed, no myoclonic activity noted. will cont to monitor. needs mild propofol for tachypnea. if further seizure like activity, will obtain [address] versed prn. [address] head reviewed, not much improvement, still cerebral edema+, no hemorrhage/acute infarct. Neurochecks q1h. Avoid fevers/hypercapnea. CVS- remains on levophed, lower dose. on NS infusion. bradycardia resolved after warming. cont to wean pressors, keep MAP>65. no worsening edema noted. Positive balance, making urine. No further VT. Resume PO amio. Can start trickle NGT feeds now. ECHO noted as with moderate LV systolic dysfunction with WMA. Noted small infrarenal dissection, distal pulses intact, hold on intervention/vasc consult at this time given severe neurological insult. Vascular/pulse checks. Right femoral cooling cathetor/triple lumen cathetor in place. Resp- on AC 45%, peep 5; ABG improved with higher TV and RR; wheezing/rhonchi improved. Will change to PC mode. ABG in 2 hours. Cont steroids and bronchodilators. On suctioning, no secretions noted, CXR without acute findings. This may be some vent dyssynchrony? none noted on vent though. s/p thorcentesis on left with 1400cc of brownish old blood removed, still mild left effusion may be from loculations. on CPAP, tachypneic and shallow breaths to 40s. ID- [id number], rewarmed. reactive post arrest? no clear pneumonia noted on CXR. Cont empiric abx coverage in critical state. Cont Zosyn(day#3) and Vanco(day#3). GI- NPO, start trickle feeds to assess tolerability. pepcid iv. Renal- ALEXANDRA noted, nonoliguric, Cr 1.7 today and rising, positive balance overall. Replete K, keep K>4. IVF NS 100cc/hour. Heme- hg stable. plt stable. no bleeding. DVT prophylaxis. Endo- glycemic control, target BS<200 Musculsk- none Wounds- none; pressure ulcer prophylaxis Nutrition- NPO, start trickle tube feeds DVT prophylaxis: LE compression, heparin sq GI prophylaxis: Pepcid Central Line: right fem, 06/29 Arterial Line: right fem, 06/29 Babin Cathetor: yes Disposition: ICU post cardiac arrest, hypoxic respiratory failure, hypoxic encephelopathy Code Status: DNR currently not much improvement. discussed with sister/brother at bedside. Will await 24 hours to see if any improvement noted. May repeat CT brain tomorrow. Total Critical Care time is 40 minutes, excluding procedures/teaching Satinder Westbrook MD Service Delivery Consultant (Electronically Signed)
[2017-07-01 10:21] LABS: FIO2 45; Resp Rate 28
[2017-07-01 10:26] LABS: PCO2 Arterial 43 mmHg (35-45)
[2017-07-01] MEDS ORDERED: Famotidine IV* 10 MG/ML 2 ML (20 mg) IV SCH (11:00)
[2017-07-01 11:43] LABS: FIO2 45; Patient Temp ABG 36.9; Resp Rate 22
[2017-07-01 11:45] LABS: PCO2 Arterial 33 mmHg (35-45)
[2017-07-01] MEDS: NS 0.9% 1000 ML* 1,000 ML IV SCH (14:20)
[2017-07-01 15:06] LABS: Glucose, BF 95 mg/dL
[2017-07-01 15:21] LABS: Total Protein, BF 3.6 g/dL
--- NOTE | 2017-07-01 15:26 | PN ---
PROGRESS NOTE: DATE OF FOLLOWUP: 07/01/17 LOCATION: The patient is in ICU 7. OVERNIGHT EVENTS: No acute overnight events. The patient's Versed has been turned off since 0700. When propofol is held, the patient becomes tachypneic into the 30s and 40s and requires restarting of the propofol. There has been no observed return of myoclonus. The patient's sister and brother were at the bedside during my evaluation this morning. MEDICATIONS: Include, 1. Amiodarone p.r.n. prevents SVT. 2. Propofol 15 mcg/kg per minute. 3. Famotidine 20 mg b.i.d. 4. Insulin. 5. Solu-Medrol 60 mg IV q.8. 6. Levophed drip. 7. Zosyn. PHYSICAL EXAM: Vital Signs: Temperature 97.9, blood pressure 105/46, heart rate 71, oxygen saturation is 97% on 45% FiO2. Propofol was briefly held while I was in the room for the examination, but for all intents and purposes, the patient was still on propofol during the exam. On general examination, he is a morbidly obese man, unresponsive and intubated in the ICU. His heart is in a regular rate and rhythm. There are coarse breath sounds and rhonchi in his lung mcgow[place] bilaterally anteriorly and laterally. On neurologic exam, he does not respond to loud voice or to noxious stimulation. There is no eye opening. Pupils are 2 mm but responsive to light to 1.5 mm. He has some spontaneous eye movements upward noted but with VOR maneuvers there is no eye movement. Corneals are intact bilaterally. He has no obvious cough or gag with suctioning. His extremities are flaccid. There is no withdrawal to noxious stimulation. There are no abnormal movements noted. He was noted to be breathing in the 40s with his ventilator set at 28. LABORATORY DATA: White blood cell count of 13.1, hematocrit 29, hemoglobin 9.6 , platelets of 321. Chemistry panel shows sodium of 125, which is stable from yesterday; chloride of 94; creatinine of 1.71, which is worsened from yesterday of 1.39; glucose of 153; calcium of 8.2; total protein 5.7; albumin 2.6. Liver functions are stable and normal. Blood gas this morning showed pH of 7.39, pCO2 of 37, pO2 of 111. IMAGING: A noncontrast brain CT was obtained this morning and personally reviewed and still shows evidence of diffuse anoxic injury, but the degree of swelling is mildly improved today. IMPRESSION: Elder Patiño is a 67-year-old man with diffuse anoxic brain injury secondary to out of hospital cardiac arrest followed by another arrest at [facility] with a total downtime of somewhere between 10 and 15 minutes most likely. He is approximately 48 hours out from his cardiac arrest. Yesterday, he was exhibiting diffuse myoclonus, which responded to Versed. He has not had return of those movements at this time, but his CT shows evidence of diffuse anoxic injury and his exam is not reassuring at this point in terms of his overall prognosis for meaningful recovery. I discussed with the family and recommended monitoring for another day and at 72 hours we may know better what his overall prognosis will be, but I advised that he will not return to a normal life if he survives this and will most likely require intermediate care and possibly be ventilator dependent as well. The family is considering what they would like to do at this point. If he has return of his myoclonic movements today, we could get a routine EEG to see if there is any normal background in between what presumably would be generalized periodic discharges. He is going to require continued sedation with propofol secondary to his respiratory status, which makes full assessment of his neurologic status a bit more difficult. [id number]/[facility] #: [id number] [facility] HOSPITALCarlos Alberto
[2017-07-02] MEDS: Insulin REGULAR(*) 1 UNITS UNIT SUBCUT SCH ×6 (00:58→20:01)
[2017-07-02] MEDS: Chlorhexidine MOUTHWASH 0.12%* 15 ML UDC SWISH SPIT SCH ×6 (00:59→20:37)
[2017-07-02] MEDS: Propofol* 100 ML IV SCH ×2 (02:05→08:02)
[2017-07-02] MEDS: ZOSYN 3.375 GM Q8H per EXTENDED INFUSION IVPB SCH ×6 (04:36→20:01)
[2017-07-02] MEDS ORDERED: Vancomycin Random Level* NOTE FOLLOW UP ONE (05:30)
[2017-07-02 06:06] LABS: Hematocrit 28 % (42-52); Hemoglobin 9.1 g/dl (14.0-18.0); Mean Corpuscular HGB Conc 32 g/dl (31-36); Mean Corpuscular Hemoglobin 28 pg (27-31); Mean Corpuscular Volume 86 fL (80-94); Mean Platelet Volume 7 um3 (7.4-10.4); Red Blood Count 3.27 10^6/ul (4.0-5.4); Red Cell Distribution Width 17 % (10.5-15); White Blood Count 15.3 10^3/ul (3.5-10.8)
[2017-07-02 06:25] LABS: Albumin 2.6 g/dL (3.2-5.2); BUN/Creatinine Ratio 12.1 (8-20); Calcium 8.6 mg/dL (8.6-10.3); EGFR African American 43.5 (>60); EGFR Non-African American 33.8 (>60); Globulin 2.9 g/dL (2-4); Potassium 3.8 mmol/L (3.5-5.0); Total Bilirubin 0.5 mg/dL (0.2-1.0); Total Protein 5.5 g/dL (6.4-8.9)
[2017-07-02] MEDS: Heparin VIAL(*) 5000 UNITS/ML VIAL (FIVE THOUSAND) SUBCUT SCH ×3 (06:45→22:34)
[2017-07-02] MEDS: methylPREDNISolone 125 MG* 2 ML VIAL IV SCH ×2 (06:48→18:27)
[2017-07-02 09:05] LABS: FIO2 30
[2017-07-02 09:10] LABS: PCO2 Arterial 33 mmHg (35-45)
[2017-07-02] MEDS: Famotidine IV* 10 MG/ML 2 ML (20 mg) IV SCH (09:31)
[2017-07-02] MEDS ORDERED: Bumetanide IV* 0.25 MG/ML 4 ML VIAL SLOW PUSH ONE (09:35)
--- NOTE | 2017-07-02 09:58 | PN ---
Progress Note - Progress Note Date of Service: 07/02/17 Note: Progress Note - Critical Care 24 hour events: -intubated, on propofol 35, now 15mcg/kg/min, lower pressors doses. -no further seizure activity over 24 hours; has been off versed infusion since 8am. -more stable on vent since increasing sedation -noted to have episodes of hypothermia or patient trying to become hypothermic but temperature management system actively keeping him warm/euthermic. Tele: NSR Vitals: Vital Signs Temp 98.8 F 07/02/17 07:00 Pulse 69 07/02/17 08:30 Resp 22 07/02/17 08:30 BP 109/55 07/01/17 06:29 Pulse Ox 95 07/02/17 08:30 Intake & Output 07/01/17 07/02/17 07/02/17 18:59 06:59 18:59 Intake Total 1124 2249 Output Total 801 525 125 Balance 323 1724 -125 Intake: IV Fluids 600 1158 NS (0.9%) 600 1158 IVPB 51 201 NS (0.9%) 51 201 Medicated IV 382 730 CC - Norepinephrine/ 129 232 Levophed CC - Propofol/Diprivan 253 498 IV Narcotic Infusion 1 Versed 1 Tube Feeding 30 99 NG Tube Irrigate Amount 60 Intake, OG Tube Irrigate 61 Amount OGT 61 Output: Babin 801 525 125 O2/Vent: PC 22/+5/30%, sat 94%; TV 650-690, breathing at set rate Infusions: propofol 35->15, levophed 1, versed off, ns 750cc/hour Current Medications: Albuterol (Ventolin 2.5 Mg/3 Ml Neb.Lisa*) 2.5 mg INH Q4H PRN PRN Reason: SOB/WHEEZING Last Admin: 06/30/17 12:52 Dose: 2.5 mg Albuterol/Ipratropium (Duoneb (Albuterol 2.5 Mg/Ipratropium 0.5 Mg)) 1 neb INH Q4H PRN PRN Reason: SOB/WHEEZING Last Admin: 07/01/17 09:20 Dose: 1 neb Chlorhexidine Gluconate (Peridex Mouth Wash 0.12%*) 15 ml SWISH SPIT Q4H LAY Last Admin: 07/02/17 09:44 Dose: 15 ml Famotidine (Pepcid Iv*) 20 mg IV DAILY [facility] Last Admin: 07/02/17 09:31 Dose: 20 mg Heparin Sodium (Porcine) (Heparin Flush Picc/Ml/Cvc(*)) 0 ml FLUSH 0600,1800 LAY PRN Reason: Protocol Last Admin: 07/02/17 06:21 Dose: Not Given Heparin Sodium (Porcine) (Heparin Vial(*)) 5,000 units SUBCUT Q8HR [facility] Last Admin: 07/02/17 06:45 Dose: 5,000 units Propofol (Diprivan*) 100 mls @ 15.513 mls/hr IV .(Initial Rate) LAY; 20 MCG/KG/ MIN PRN Reason: Protocol Last Admin: 07/02/17 08:02 Dose: 15.513 mls/hr Norepinephrine Bitartrate (Levophed 16 Mcg/Ml Premix Bag*) 4,000 mcg in 250 mls @ 18.75 mls/hr IV .INITIAL RATE LAY PRN Reason: 5 MCG/MIN Last Admin: 07/01/17 18:44 Dose: 15 mls/hr Piperacillin Sod/Tazobactam (Sod 3.375 gm/ Sodium Chloride) 100 mls @ 25 mls/ hr IVPB Q8H [facility] Last Admin: 07/02/17 04:36 Dose: 25 mls/hr Sodium Chloride (Ns 0.9% 1000 Ml*) 1,000 mls @ 75 mls/hr IV PER RATE [facility] Last Admin: 07/01/17 14:20 Dose: 75 mls/hr Midazolam HCl (Versed Premix Bag 1 Mg/Ml*) 100 mg in 100 mls @ 4 mls/hr IV .Q24H [facility] Last Admin: 07/01/17 01:58 Dose: 4 mls/hr Insulin Human Regular (Insulin Regular(*)) 0 units SUBCUT Q4H LAY PRN Reason: Protocol Last Admin: 07/02/17 08:18 Dose: Not Given Meperidine HCl (Demerol Syringe*) 25 mg IV Q6HR PRN PRN Reason: shivering Methylprednisolone Sodium Succinate (Solu-Medrol 125mg *) 60 mg IV Q12H [facility] Midazolam HCl (Versed 2mg/2ml*) 2 mg IV Q1H PRN PRN Reason: TONIC CLONIC MOVEMENT Last Admin: 06/30/17 14:44 Dose: 2 mg Physical Exam: General: intubated, nonresponsive. Head: normocephalic, atraumatic HEENT: no pallor, no icterus, moist mucous membranes Neck: soft, supple, no jvd, no stridor CVS: normal rate, normal rhythm, no murmur Resp: bilateral air entry, rhonchi improved, mild rhonchi on right base only, no wheeze, no rhales, no acc muscle use Abdomen: soft, obese, nontender, nondistended, BS+ Ext: pulses+ via dopppler due to edema, warm ext, 3+ edema LE Skin: intact, no breakdown, dry/changes of chronic edema Neuro: intubated, unresponsive, mild sedation; corneal reflex+ but R>L, pupils bilaterally 1mm and sluggish reactivity; gag-, cough-; no withdrawal to painful stimuli. no further seizure activity noted. Labs: Laboratory Results - last 24 hr 06/30/17 06/30/17 06/30/17 11:00 11:00 11:00 WBC RBC Hgb Hct MCV MCH MCHC RDW Plt Count MPV Patient Temperature ABG pH ABG pCO2 ABG pO2 ABG HCO3 ABG O2 Saturation ABG Base Excess Respiration Rate Ventilator Type Vent Mode FiO2 Inspiratory Time PEEP Pressure Support Pressure Control EPAP IPAP BiPAP Sodium Potassium Chloride Carbon Dioxide Anion Gap BUN Creatinine Est GFR ( Amer) Est GFR (Non-Af Amer) BUN/Creatinine Ratio Glucose POC Glucose (mg/dL) Calcium Total Bilirubin AST ALT Alkaline Phosphatase Total Protein Albumin Globulin Albumin/Globulin Ratio Fluid Source Pleural fluid Pleural fluid Pleural fluid Fluid Glucose 95 Fluid Total Protein 3.6 Fluid LDH Fluid Amylase 61 Random Vancomycin 06/30/17 07/01/17 07/01/17 11:00 10:17 11:37 WBC RBC Hgb Hct MCV MCH MCHC RDW Plt Count MPV Patient Temperature 36.9 ABG pH 7.34 L 7.42 ABG pCO2 43 33 L ABG pO2 77 L 79 L ABG HCO3 22.9 22.9 ABG O2 Saturation 97.4 97.5 ABG Base Excess -2.5 L -2.6 L Respiration Rate 22 Ventilator Type Not Reportable Vent Mode pcv FiO2 45 Inspiratory Time 1.0 PEEP 5 Pressure Support Not Reportable Pressure Control 30 EPAP Not Reportable IPAP Not Reportable BiPAP Not Reportable Sodium Potassium Chloride Carbon Dioxide Anion Gap BUN Creatinine Est GFR ( Amer) Est GFR (Non-Af Amer) BUN/Creatinine Ratio Glucose POC Glucose (mg/dL) Calcium Total Bilirubin AST ALT Alkaline Phosphatase Total Protein Albumin Globulin Albumin/Globulin Ratio Fluid Source Pleural fluid Fluid Glucose Fluid Total Protein Fluid LDH 477 Fluid Amylase Random Vancomycin 07/01/17 07/01/17 07/01/17 12:42 16:47 21:36 WBC RBC Hgb Hct MCV MCH MCHC RDW Plt Count MPV Patient Temperature ABG pH ABG pCO2 ABG pO2 ABG HCO3 ABG O2 Saturation ABG Base Excess Respiration Rate Ventilator Type Vent Mode FiO2 Inspiratory Time PEEP Pressure Support Pressure Control EPAP IPAP BiPAP Sodium Potassium Chloride Carbon Dioxide Anion Gap BUN Creatinine Est GFR ( Amer) Est GFR (Non-Af Amer) BUN/Creatinine Ratio Glucose POC Glucose (mg/dL) 159 H 164 H 160 H Calcium Total Bilirubin AST ALT Alkaline Phosphatase Total Protein Albumin Globulin Albumin/Globulin Ratio Fluid Source Fluid Glucose Fluid Total Protein Fluid LDH Fluid Amylase Random Vancomycin 07/02/17 07/02/17 07/02/17 00:53 04:35 05:30 WBC 15.3 H RBC 3.27 L Hgb 9.1 L Hct 28 L MCV 86 MCH 28 MCHC 32 RDW 17 H Plt Count 327 MPV 7 L Patient Temperature ABG pH ABG pCO2 ABG pO2 ABG HCO3 ABG O2 Saturation ABG Base Excess Respiration Rate Ventilator Type Vent Mode FiO2 Inspiratory Time PEEP Pressure Support Pressure Control EPAP IPAP BiPAP Sodium Potassium Chloride Carbon Dioxide Anion Gap BUN Creatinine Est GFR ( Amer) Est GFR (Non-Af Amer) BUN/Creatinine Ratio Glucose POC Glucose (mg/dL) 162 H 159 H Calcium Total Bilirubin AST ALT Alkaline Phosphatase Total Protein Albumin Globulin Albumin/Globulin Ratio Fluid Source Fluid Glucose Fluid Total Protein Fluid LDH Fluid Amylase Random Vancomycin 07/02/17 07/02/17 07/02/17 05:50 06:51 08:50 WBC RBC Hgb Hct MCV MCH MCHC RDW Plt Count MPV Patient Temperature Not Reportable ABG pH 7.47 H ABG pCO2 33 L ABG pO2 68 L ABG HCO3 25.3 ABG O2 Saturation 96.4 ABG Base Excess 0.6 Respiration Rate Not Reportable Ventilator Type Not Reportable Vent Mode Not Reportable FiO2 30 Inspiratory Time Not Reportable PEEP Not Reportable Pressure Support Not Reportable Pressure Control Not Reportable EPAP Not Reportable IPAP Not Reportable BiPAP Not Reportable Sodium 126 L Potassium 3.8 Chloride 95 L Carbon Dioxide 23 Anion Gap 8 BUN 24 Creatinine 1.99 H Est GFR ( Amer) 43.5 Est GFR (Non-Af Amer) 33.8 BUN/Creatinine Ratio 12.1 Glucose 136 H POC Glucose (mg/dL) Calcium 8.6 Total Bilirubin 0.50 AST 42 H ALT 28 Alkaline Phosphatase 70 Total Protein 5.5 L Albumin 2.6 L Globulin 2.9 Albumin/Globulin Ratio 0.9 L Fluid Source Fluid Glucose Fluid Total Protein Fluid LDH Fluid Amylase Random Vancomycin 16.0 Imaging: CXR 06/29 [facility] [place] above sandra, ?congestion mild, left sided pleural effusion + which is moderate in size, unclear if infiltrate inderlying. No PTX present. CT head - mild cerebral edema+, no hemorrhage, diffuse anoxic injury suspected ( official reviewed) CT chest/abd/pelvis - moderate left pleural effusion partially loculated; bilateral infiltrates, short segment of dissection in infrarenal mid abd aorta ( official reviewed) CXR 06/30 - ett above sandra, left pleural effusion wtih underlying atelectasis/ infiltrate. right side is clear without effusion/infiltrate. cxr 07/01 - ett above sandra; no clear infiltrate; left small effusion noted. ct brain 07/01 - cerebral edema + but slight improvement from priro 06/29 study. anoxic brain injury+ Assessment: 67y M pmhx of CAD and VT, s/p CABG 04/2017 from [facility]; brought in via [facility] as OOH Cardiac Arrest, presented bradycardic and hypoxic. -Cardiac Arrest, PEA vs bradycardic; s/p therap hypothermia 06/29 -Acute Hypoxic Respiratory Failure -Hypoxic-ischemic encephalopathy -ALEXANDRA, likely from hypoxic/ischemic ATN -Left Pleural effusion, partially loculated; s/p thora 06/30 left -r/o pneumonia -Pulmonary Congestion -short infrarenal mid aortic dissection -Ventricular Tachycardia -CAD s/p CABG -Ischemic CMP; now with acute moderate LV systolic dysfunction, likely post arrest stunning Plan: Neuro- post arrest, s/p hypothermia protocol. off versed, no myoclonic activity noted. weaning off propofol; now being held. Neuro exam similar to yesterday. Appears to be severe neurological injury with some brain stem function still present. Gag/cough-. Will reassess off propofol in afternoon also. CT head reviewed, not much improvement, still cerebral edema+, no hemorrhage/acute infarct. Neurochecks q1h. Avoid fevers/hypercapnea. Neurology following. CVS- less levophed, down to 1 mcg/min. Positive balance for days. Bumex 1mg iv x1 now. on NS infusion. NSR, bradycardia resolved. cont to wean pressors, keep MAP>65. No further VT, resuming PO amio 200mg bid as prior. ECHO noted as with moderate LV systolic dysfunction with WMA. Noted small infrarenal dissection, distal pulses intact, hold on intervention/vasc consult at this time given severe neurological insult. Vascular/pulse checks. Right femoral cooling cathetor/triple lumen cathetor in place. Resp- on PC 30%, peep 5; ABG reviewed. Oct RR to 18. Monitor for dysynchrony again off sedation. Dec Steroids. Bronchodilators prn. Minimal/no secretions being suctioned. ID- wbc 15, euthermic but patient becomes more hypothermic on graph. blood cx/ sputum cx neg. d/c vanco. cont zosyn for 24 hours more. Cont empiric abx coverage in critical state. Cont Zosyn(day#4) and d/c Vanco. GI- Nepro feeds, tolerating 10cc/hour; increase to 20cc/hour. pepcid iv. no diarrhea/vomitting Renal- ALEXANDRA, nonoliguric, Cr 1.99 today and rising, positive balance overall. Bumex 1mg iv x1 now. Replete K, keep K>4. IVF NS 75cc/hr Heme- hg stable. plt stable. no bleeding. DVT prophylaxis. Endo- glycemic control, target BS<200 Musculsk- none Wounds- pressure ulcer prophylaxis; small blisters noted on bilateral buttocks. wound care. Nutrition- increase ngt nepro 20cc/hour DVT prophylaxis: LE compression, heparin sq GI prophylaxis: Pepcid Central Line: right fem, 06/29 Arterial Line: right fem, 06/29 Babin Cathetor: yes Disposition: ICU post cardiac arrest, hypoxic respiratory failure, hypoxic encephelopathy Code Status: DNR Not much imiprovement, remains encephelopathic with poor neurological function/ brain stem function. not clinically brain . Reassess after propofol held. Need to discuss with family again later today. Total Critical Care time is 35 minutes, excluding procedures/teaching Satinder Westbrook MD Emergency Medcl Emt (Electronically Signed)
[2017-07-02] MEDS ORDERED: Artificial Tear OPHTH.OINT* 3.5 GM BOTH EYES PRN (13:34)
--- NOTE | 2017-07-02 13:38 | PN ---
Progress Note - Progress Note Date of Service: 07/02/17 Note: Re-eval Remains off levophed, propofol still off Bumex 1mg IV given, made 800cc urine output Remains hemodyn stable Temp management system in place and controlling, no monitored increased in temps. Neuro exam - unresponsive, has bilateral withdrawal to painful stimuli. no cough on stimulation corneal reflex+ bilaterally pupils constricted bilaterall, sluggish reactivity. No further overt clinical myoclonic seizure activity noted. Satinder Westbrook Intensivst
[2017-07-02] MEDS: NS 0.9% 1000 ML* 1,000 ML IV SCH (15:23)
[2017-07-02] MEDS: Amiodarone TAB* 200 MG NG TUBE SCH (22:04)
[2017-07-03] MEDS: Insulin REGULAR(*) 1 UNITS UNIT SUBCUT SCH ×7 (00:37→23:32)
[2017-07-03] MEDS: Chlorhexidine MOUTHWASH 0.12%* 15 ML UDC SWISH SPIT SCH ×7 (01:02→23:32)
[2017-07-03] MEDS: ZOSYN 3.375 GM Q8H per EXTENDED INFUSION IVPB SCH ×6 (03:59→20:36)
[2017-07-03] MEDS: NS 0.9% 1000 ML* 1,000 ML IV SCH (04:08)
--- NOTE | 2017-07-03 05:02 | PN ---
PROGRESS NOTE: DATE OF SERVICE/DICTATION: 07/02/17 LOCATION: He is in ICU bed 7. OVERNIGHT EVENTS: No acute overnight events. Propofol and Levophed were turned off at approximately 10 a.m. this morning and the patient has remained off. His nurse reports that about 4 hours ago, he developed intermittent diaphragmatic movements of his belly, which is unclear whether it is myoclonus or diaphragm irritation. He is now reported to be with joint pain in his upper extremities by Dr. Westbrook. He has been maintaining a decent blood pressure off the pressors. There has not been any family visiting today. MEDICATIONS: 1. Nebulizers q.4 hours p.r.n. 2. Amiodarone 200 mg b.i.d. 3. Famotidine 20 mg daily. 4. Insulin sliding scale. 5. Solu-Medrol 60 mg IVq.12 hours. 6. Zosyn. PHYSICAL EXAMINATION: Vital Signs: Temperature 98.8. The patient is still being warmed as when this is discontinued, his temperature drops. Blood pressure 119/56, heart rate 65, oxygen saturation 96% on the ventilator. On exam, he is unresponsive and intubated. There is no eye opening. There is no response to voice. He is breathing at between 19 and 24 breaths per minute over the ventilator. His gaze is midline. The pupils are equal, round and reactive from 2 to 1.5 mm bilaterally. VOR's are absent. Corneal reflexes are present bilaterally. There is no cough or gag. He has intermittent abdominal movements, which appear similar to hiccups. Sometimes, this occurs singly and other times comes in chains of 3 or 4. There is slight withdrawal to noxious stimulation in the upper extremities, but no obvious response to noxious stimulation in the lower extremities. Tone is flaccid. LABORATORY DATA: CBC: White blood cell count of 15.3, hematocrit 28. Chemistry panel shows worsening renal function with a creatinine of 1.99 from 1.71 yesterday. AST is 42, ALT is normal as is alkaline phosphatase. IMPRESSION: This is a 67-year-old man with recent coronary artery bypass who presented as an [id number] cardiac arrest and subsequently arrested again at [facility]. He has shown some minor improvements in his neurologic examination off propofol, but is now day 3 from the time of his injury. At this point, I still think his prognosis overall is grim for any meaningful recovery. More likely than not, he may be able to survive this but would be potentially left in a persistent vegetative state versus severely disabled. We will be available as needed to assist with decision making going forward. Dr. Chery takes over the neurology service this evening and I will apprise him of the patient. [id number]/[facility] #: [id number] MTDD
[2017-07-03] MEDS: methylPREDNISolone 125 MG* 2 ML VIAL IV SCH (05:47)
[2017-07-03] MEDS: Heparin VIAL(*) 5000 UNITS/ML VIAL (FIVE THOUSAND) SUBCUT SCH ×3 (05:48→21:04)
[2017-07-03 06:28] LABS: Hematocrit 27 % (42-52); Mean Corpuscular HGB Conc 33 g/dl (31-36); Mean Corpuscular Hemoglobin 28 pg (27-31); Mean Corpuscular Volume 85 fL (80-94); Mean Platelet Volume 7 um3 (7.4-10.4); Red Blood Count 3.21 10^6/ul (4.0-5.4); Red Cell Distribution Width 17 % (10.5-15); White Blood Count 12.2 10^3/ul (3.5-10.8)
[2017-07-03 06:39] LABS: Albumin 2.5 g/dL (3.2-5.2); BUN/Creatinine Ratio 17.8 (8-20); Calcium 8.5 mg/dL (8.6-10.3); EGFR Non-African American 34.2 (>60); Globulin 2.8 g/dL (2-4); Potassium 3.8 mmol/L (3.5-5.0); Total Bilirubin 0.6 mg/dL (0.2-1.0); Total Protein 5.3 g/dL (6.4-8.9)
[2017-07-03] MEDS ORDERED: Bumetanide IV* 0.25 MG/ML 4 ML VIAL SLOW PUSH ONE (09:11)
[2017-07-03] MEDS: Propofol* 100 ML IV SCH ×3 (09:23→20:36)
[2017-07-03] MEDS: Famotidine IV* 10 MG/ML 2 ML (20 mg) IV SCH (09:25)
[2017-07-03] MEDS: Amiodarone TAB* 200 MG NG TUBE SCH ×2 (09:30→20:35)
--- NOTE | 2017-07-03 09:31 | PN ---
Progress Note - Progress Note Date of Service: 07/03/17 Note: Progress Note - Critical Care 24 hour events: -intubated, nonresponsive; has been off propofol since yesterday; off pressors since yesterday, no furhter versed needed -overnight not tolerating tube feeds, high residuals building -this morning again now, dyssynchronous with vent -afebrile, good urine output with bumex -on temp management system, maintaining euthermia Tele: NSR Vitals: Vital Signs Temp 98.8 F 07/03/17 08:00 Pulse 72 07/03/17 08:00 Resp 31 07/03/17 08:56 BP 109/55 07/01/17 06:29 Pulse Ox 97 07/03/17 08:00 Intake & Output 07/02/17 07/03/17 07/03/17 18:59 06:59 18:59 Intake Total 944 1536 Output Total 1415 601 Balance -471 935 Weight 308 lb 10.354 oz Intake: IV Fluids 612 1189 NS (0.9%) 612 1189 IVPB 128 213 ABX - PIPERACILLIN 213 NS (0.9%) 128 Medicated IV 124 CC - Norepinephrine/ 34 Levophed CC - Propofol/Diprivan 90 Tube Feeding 80 54 NG Tube Irrigate Amount 80 Output: NG Tube Drainage Amount 300 OGT 300 Babin 915 356 Tube Feeding Residual 200 245 Amount Wasted O2/Vent: PC 18/+5/30%, sat 94%; TV 650-690, breathing at set rate Infusions: propofol off, levophed off, versed off, ns 75cc/hour Current Medications: Albuterol (Ventolin 2.5 Mg/3 Ml Neb.Lisa*) 2.5 mg INH Q4H PRN PRN Reason: SOB/WHEEZING Last Admin: 06/30/17 12:52 Dose: 2.5 mg Albuterol/Ipratropium (Duoneb (Albuterol 2.5 Mg/Ipratropium 0.5 Mg)) 1 neb INH Q4H PRN PRN Reason: SOB/WHEEZING Last Admin: 07/01/17 09:20 Dose: 1 neb Amiodarone HCl (Cordarone Tab*) 200 mg NG TUBE BID LAY Last Admin: 07/02/17 22:04 Dose: 200 mg Artificial Tears (Lacrilube Oint*) 1 applic BOTH EYES Q4H PRN PRN Reason: DRY EYE Chlorhexidine Gluconate (Peridex Mouth Wash 0.12%*) 15 ml SWISH SPIT Q4H [facility] Last Admin: 07/03/17 08:11 Dose: 15 ml Famotidine (Pepcid Iv*) 20 mg IV DAILY [facility] Last Admin: 07/02/17 09:31 Dose: 20 mg Heparin Sodium (Porcine) (Heparin Flush Picc/Ml/Cvc(*)) 0 ml FLUSH 0600,1800 LAY PRN Reason: Protocol Last Admin: 07/03/17 05:48 Dose: 2 ml Heparin Sodium (Porcine) (Heparin Vial(*)) 5,000 units SUBCUT Q8HR [facility] Last Admin: 07/03/17 05:48 Dose: 5,000 units Propofol (Diprivan*) 100 mls @ 15.513 mls/hr IV .(Initial Rate) LAY; 20 MCG/KG/ MIN PRN Reason: Protocol Last Admin: 07/02/17 08:02 Dose: 15.513 mls/hr Norepinephrine Bitartrate (Levophed 16 Mcg/Ml Premix Bag*) 4,000 mcg in 250 mls @ 18.75 mls/hr IV .INITIAL RATE LAY PRN Reason: 5 MCG/MIN Last Admin: 07/01/17 18:44 Dose: 15 mls/hr Piperacillin Sod/Tazobactam (Sod 3.375 gm/ Sodium Chloride) 100 mls @ 25 mls/ hr IVPB Q8H [facility] Last Admin: 07/03/17 03:59 Dose: 25 mls/hr Sodium Chloride (Ns 0.9% 1000 Ml*) 1,000 mls @ 75 mls/hr IV PER RATE [facility] Last Admin: 07/03/17 04:08 Dose: 75 mls/hr Insulin Human Regular (Insulin Regular(*)) 0 units SUBCUT Q4H [facility] PRN Reason: Protocol Last Admin: 07/03/17 08:05 Dose: Not Given Methylprednisolone Sodium Succinate (Solu-Medrol 125mg *) 60 mg IV DAILY [facility] Midazolam HCl (Versed 2mg/2ml*) 2 mg IV Q1H PRN PRN Reason: TONIC CLONIC MOVEMENT Last Admin: 06/30/17 14:44 Dose: 2 mg Physical Exam: General: intubated, nonresponsive. Head: normocephalic, atraumatic HEENT: no pallor, no icterus, moist mucous membranes Neck: soft, supple, no jvd, no stridor CVS: normal rate, normal rhythm, no murmur Resp: bilateral air entry, rhonchi improved, mild rhonchi on right base only, no wheeze, no rhales, no acc muscle use Abdomen: soft, obese, nontender, nondistended, BS+ Ext: pulses+ via dopppler due to edema, warm ext, 3+ edema LE Skin: intact, no breakdown, dry/changes of chronic edema Neuro: intubated, unresponsive, off sedation; corneal reflex+ L>R today, pupils bilaterally 1mm and sluggish reactivity; gag-, cough-; less withdrawal to painful stimuli. no further seizure activity noted. Labs: Laboratory Results - last 24 hr 07/02/17 07/02/17 07/02/17 08:15 12:00 16:50 WBC RBC Hgb Hct MCV MCH MCHC RDW Plt Count MPV Sodium Potassium Chloride Carbon Dioxide Anion Gap BUN Creatinine Est GFR ( Amer) Est GFR (Non-Af Amer) BUN/Creatinine Ratio Glucose POC Glucose (mg/dL) 144 H 143 H 137 H Calcium Total Bilirubin AST ALT Alkaline Phosphatase Total Protein Albumin Globulin Albumin/Globulin Ratio 07/02/17 07/03/17 07/03/17 19:59 00:18 03:59 WBC RBC Hgb Hct MCV MCH MCHC RDW Plt Count MPV Sodium Potassium Chloride Carbon Dioxide Anion Gap BUN Creatinine Est GFR ( Amer) Est GFR (Non-Af Amer) BUN/Creatinine Ratio Glucose POC Glucose (mg/dL) 134 H 137 H 140 H Calcium Total Bilirubin AST ALT Alkaline Phosphatase Total Protein Albumin Globulin Albumin/Globulin Ratio 07/03/17 07/03/17 07/03/17 06:00 06:00 08:03 WBC 12.2 H RBC 3.21 L Hgb 9.0 L Hct 27 L MCV 85 MCH 28 MCHC 33 RDW 17 H Plt Count 299 MPV 7 L Sodium 132 L Potassium 3.8 Chloride 100 L Carbon Dioxide 25 Anion Gap 7 BUN 35 H Creatinine 1.97 H Est GFR ( Amer) 44.0 Est GFR (Non-Af Amer) 34.2 BUN/Creatinine Ratio 17.8 Glucose 126 H POC Glucose (mg/dL) 144 H Calcium 8.5 L Total Bilirubin 0.60 AST 49 H ALT 26 Alkaline Phosphatase 68 Total Protein 5.3 L Albumin 2.5 L Globulin 2.8 Albumin/Globulin Ratio 0.9 L Imaging: CXR 06/29 [facility] ER ett above sandra, ?congestion mild, left sided pleural effusion + which is moderate in size, unclear if infiltrate inderlying. No PTX present. CT head - mild cerebral edema+, no hemorrhage, diffuse anoxic injury suspected ( official reviewed) CT chest/abd/pelvis - moderate left pleural effusion partially loculated; bilateral infiltrates, short segment of dissection in infrarenal mid abd aorta ( official reviewed) CXR 06/30 - ett above sandra, left pleural effusion wtih underlying atelectasis/ infiltrate. right side is clear without effusion/infiltrate. cxr 07/01 - ett above sandra; no clear infiltrate; left small effusion noted. ct brain 07/01 - cerebral edema + but slight improvement from priro 06/29 study. anoxic brain injury+ Assessment: 67y M pmhx of CAD and VT, s/p CABG 04/2017 from [facility]; brought in via [facility] as OOH Cardiac Arrest, presented bradycardic and hypoxic. -Cardiac Arrest, PEA vs bradycardic; s/p therap hypothermia 06/29 -Acute Hypoxic Respiratory Failure -Hypoxic-ischemic encephalopathy -ALEXANDRA, likely from hypoxic/ischemic ATN -Left Pleural effusion, partially loculated; s/p thora 06/30 left -r/o pneumonia -Pulmonary Congestion -short infrarenal mid aortic dissection -Ventricular Tachycardia -CAD s/p CABG -Ischemic CMP; now with acute moderate LV systolic dysfunction, likely post arrest stunning Plan: Neuro- post arrest, s/p hypothermia protocol. off versed, off propofol. some propofol to be restarted now for dyssynchrony with vent. no myoclonic activity noted. No improvement in neuro exam or slightly worse from yesterday, overall severe neurological injury with some brain stem function still present. Gag/ cough-. WIll try to keep off sedation but needs for vent synchrony at times. CT head reviewed, not much improvement, still cerebral edema+, no hemorrhage/acute infarct. Neurochecks q2h. Avoid fevers/hypercapnea. Neurology following. CVS- hemodyn stable, off pressors. art line in place. repeat bumex 1mg iv x1 today. dec NS 50cc/hour. no diarrhea or other losses. NSR. No further VT, amio po if tolerating PO. ECHO noted as with moderate LV systolic dysfunction with WMA. Noted small infrarenal dissection, distal pulses intact, hold on intervention/vasc consult at this time given severe neurological insult. Vascular/pulse checks. Right femoral cooling cathetor/triple lumen cathetor in place. Resp- on PC 30%, peep 5. Sedation for vent synchrony. on Spont mode becomes tachypneic and shallow/rapid breathing with tv <100 with PS/peep. Dec Steroids. Bronchodilators prn. Minimal/no secretions being suctioned. ID- wbc 12, euthermic. sputum cx with morganella and staph aureus. Cont Zosyn( day#5). GI- Nepro feeds off, doesnt tolerate well. start again today, add reglan 5mg iv q8h. pepcid iv. no diarrhea/vomitting Renal- ALEXANDRA, nonoliguric, Cr 1.97 and plateued now. sing, positive balance overall. Bumex 1mg iv x1 now. Replete K, keep K>4. IVF NS 50cc/hr Heme- hg stable. plt stable. no bleeding. DVT prophylaxis. Endo- glycemic control, target BS<200 Musculsk- none Wounds- pressure ulcer prophylaxis; small blisters noted on bilateral buttocks. wound care. Nutrition- restart nepro DVT prophylaxis: LE compression, heparin sq GI prophylaxis: Pepcid Central Line: right fem, 06/29 Arterial Line: right fem, 06/29 Babin Cathetor: yes Disposition: ICU post cardiac arrest, hypoxic respiratory failure, hypoxic encephelopathy Code Status: DNR poor neurological function; will need to discuss with family today about further goals of care. Total Critical Care time is 35 minutes, excluding procedures/teaching Satinder Westbrook MD Dairy Feed Mixing Operator (Electronically Signed)
[2017-07-03] MEDS ORDERED: Metoclopramide IV* 5 MG/ML 2 ML VIAL IV PRN (09:42)
[2017-07-03] MEDS ORDERED: NS 0.9% 1000 ML* 1,000 ML IV SCH (09:42)
--- NOTE | 2017-07-03 11:30 | PN ---
Progress Note - Progress Note Date of Service: 07/03/17 Note: Subjective: No new issues overnight. Remains off of pressors, blood pressures stable. Overbreathing vent this am and put back on Propofol. Continues to have some abdominal "hiccups." No overt seizure activity. Remains largely unresponsive. Temp Pulse Resp BP Pulse Ox 98.8 F 78 21 109/55 96 07/03/17 10:00 07/03/17 10:00 07/03/17 10:00 07/01/17 06:29 07/03/17 10:00 Physical Exam: (Off Propofol 15 minutes before exam) Unresponsive, intubated, ventilated No withdraw to pain. No spontaneous movement No eye opening or agitation with sternal rub or loud voice Absent Reflexes Negative Dolls Negative Gag Negative Corneals Occasional hiccup like movements, no seizure like activity Coarse BS in all lung mcgowan RRR 1+ edema in the ankles/feet and hands Skin cool to the touch. Medications Albuterol (Ventolin 2.5 Mg/3 Ml Neb.Lisa*) 2.5 mg INH Q4H PRN PRN Reason: SOB/WHEEZING Last Admin: 06/30/17 12:52 Dose: 2.5 mg Albuterol/Ipratropium (Duoneb (Albuterol 2.5 Mg/Ipratropium 0.5 Mg)) 1 neb INH Q4H PRN PRN Reason: SOB/WHEEZING Last Admin: 07/01/17 09:20 Dose: 1 neb Amiodarone HCl (Cordarone Tab*) 200 mg NG TUBE BID [facility] Last Admin: 07/03/17 09:30 Dose: 200 mg Artificial Tears (Lacrilube Oint*) 1 applic BOTH EYES Q4H PRN PRN Reason: DRY EYE Chlorhexidine Gluconate (Peridex Mouth Wash 0.12%*) 15 ml SWISH SPIT Q4H [facility] Last Admin: 07/03/17 08:11 Dose: 15 ml Famotidine (Pepcid Iv*) 20 mg IV DAILY [facility] Last Admin: 07/03/17 09:25 Dose: 20 mg Heparin Sodium (Porcine) (Heparin Flush Picc/Ml/Cvc(*)) 0 ml FLUSH 0600,1800 [facility] PRN Reason: Protocol Last Admin: 07/03/17 05:48 Dose: 2 ml Heparin Sodium (Porcine) (Heparin Vial(*)) 5,000 units SUBCUT Q8HR [facility] Last Admin: 07/03/17 05:48 Dose: 5,000 units Propofol (Diprivan*) 100 mls @ 15.513 mls/hr IV .(Initial Rate) LAY; 20 MCG/KG/ MIN PRN Reason: Protocol Last Admin: 07/03/17 09:23 Dose: 15.513 mls/hr Norepinephrine Bitartrate (Levophed 16 Mcg/Ml Premix Bag*) 4,000 mcg in 250 mls @ 18.75 mls/hr IV .INITIAL RATE LAY PRN Reason: 5 MCG/MIN Last Admin: 07/01/17 18:44 Dose: 15 mls/hr Piperacillin Sod/Tazobactam (Sod 3.375 gm/ Sodium Chloride) 100 mls @ 25 mls/ hr IVPB Q8H [facility] Last Admin: 07/03/17 03:59 Dose: 25 mls/hr Sodium Chloride (Ns 0.9% 1000 Ml*) 1,000 mls @ 50 mls/hr IV PER RATE [facility] Insulin Human Regular (Insulin Regular(*)) 0 units SUBCUT Q4H [facility] PRN Reason: Protocol Last Admin: 07/03/17 08:05 Dose: Not Given Methylprednisolone Sodium Succinate (Solu-Medrol 125mg *) 60 mg IV DAILY [facility] Metoclopramide HCl (Reglan Iv*) 5 mg IV Q6H PRN PRN Reason: NAUSEA/VOMITING Midazolam HCl (Versed 2mg/2ml*) 2 mg IV Q1H PRN PRN Reason: TONIC CLONIC MOVEMENT Last Admin: 06/30/17 14:44 Dose: 2 mg Lab: Laboratory Results - last 24 hr 07/02/17 07/02/17 07/02/17 08:15 12:00 16:50 WBC RBC Hgb Hct MCV MCH MCHC RDW Plt Count MPV Sodium Potassium Chloride Carbon Dioxide Anion Gap BUN Creatinine Est GFR ( Amer) Est GFR (Non-Af Amer) BUN/Creatinine Ratio Glucose POC Glucose (mg/dL) 144 H 143 H 137 H Calcium Total Bilirubin AST ALT Alkaline Phosphatase Total Protein Albumin Globulin Albumin/Globulin Ratio 07/02/17 07/03/17 07/03/17 19:59 00:18 03:59 WBC RBC Hgb Hct MCV MCH MCHC RDW Plt Count MPV Sodium Potassium Chloride Carbon Dioxide Anion Gap BUN Creatinine Est GFR ( Amer) Est GFR (Non-Af Amer) BUN/Creatinine Ratio Glucose POC Glucose (mg/dL) 134 H 137 H 140 H Calcium Total Bilirubin AST ALT Alkaline Phosphatase Total Protein Albumin Globulin Albumin/Globulin Ratio 07/03/17 07/03/17 07/03/17 06:00 06:00 08:03 WBC 12.2 H RBC 3.21 L Hgb 9.0 L Hct 27 L MCV 85 MCH 28 MCHC 33 RDW 17 H Plt Count 299 MPV 7 L Sodium 132 L Potassium 3.8 Chloride 100 L Carbon Dioxide 25 Anion Gap 7 BUN 35 H Creatinine 1.97 H Est GFR ( Amer) 44.0 Est GFR (Non-Af Amer) 34.2 BUN/Creatinine Ratio 17.8 Glucose 126 H POC Glucose (mg/dL) 144 H Calcium 8.5 L Total Bilirubin 0.60 AST 49 H ALT 26 Alkaline Phosphatase 68 Total Protein 5.3 L Albumin 2.5 L Globulin 2.8 Albumin/Globulin Ratio 0.[address] Head: July 01, 2017: Persistent edema consistent with anoxic injury Assessment/Plan: From a neurologic perspective, he has made no real recovery and may have worsened slightly from yesterday. He is showing minimal brain stem functioning. Now out 4 days from initial event, I believe that his change for any meaningful recovery is extremely low. I see no strong evidence of seizure activity and would not treat at this time. I would recommend continuing current care per the medical team. Discussions with family are ongoing about the continuation of his care. I have no other new recommendations at this time. I will follow along.
[2017-07-04] MEDS: Propofol* 100 ML IV SCH (02:45)
[2017-07-04] MEDS: ZOSYN 3.375 GM Q8H per EXTENDED INFUSION IVPB SCH ×4 (04:13→13:09)
[2017-07-04] MEDS: Insulin REGULAR(*) 1 UNITS UNIT SUBCUT SCH (04:13)
[2017-07-04] MEDS: Chlorhexidine MOUTHWASH 0.12%* 15 ML UDC SWISH SPIT SCH (04:13)
[2017-07-04] MEDS: Heparin VIAL(*) 5000 UNITS/ML VIAL (FIVE THOUSAND) SUBCUT SCH (05:19)
[2017-07-04 05:29] LABS: Hematocrit 28 % (42-52); Mean Corpuscular HGB Conc 33 g/dl (31-36); Mean Corpuscular Hemoglobin 28 pg (27-31); Mean Corpuscular Volume 86 fL (80-94); Mean Platelet Volume 6 um3 (7.4-10.4); Red Blood Count 3.23 10^6/ul (4.0-5.4); Red Cell Distribution Width 18 % (10.5-15); White Blood Count 13.2 10^3/ul (3.5-10.8)
[2017-07-04 05:47] LABS: Albumin 2.4 g/dL (3.2-5.2); BUN/Creatinine Ratio 23.9 (8-20); Calcium 8.2 mg/dL (8.6-10.3); EGFR African American 47.6 (>60); Globulin 2.8 g/dL (2-4); Potassium 3.6 mmol/L (3.5-5.0); Total Bilirubin 0.6 mg/dL (0.2-1.0); Total Protein 5.2 g/dL (6.4-8.9)
[2017-07-04 06:19] VITALS: BP 110/54
[2017-07-04] MEDS ORDERED: methylPREDNISolone 125 MG* 2 ML VIAL IV SCH (09:00)
--- NOTE | 2017-07-04 11:14 | PN ---
Progress Note - Progress Note Date of Service: 07/04/17 Note: Progress Note - Critical Care 24 hour events: -intubated, nonresponsive; off propofol since morning, required some for dyssynchrony -no pressors, only IVF -neuroexam unchanged -at length discussion with sister (jamar schneider) and brother yesterday on current neurological status. Tele: NSR Vitals: Vital Signs Temp 98.8 F 07/04/17 06:11 Pulse 62 07/04/17 06:11 Resp 20 07/04/17 06:00 BP 110/54 07/04/17 06:11 Pulse Ox 97 07/04/17 06:11 Intake & Output 07/03/17 07/04/17 07/04/17 18:59 06:59 18:59 Intake Total 854 1110 Output Total 1270 750 45 Balance -416 360 -45 Weight 309 lb 1.409 oz Intake: IV Fluids 546 883 ABX - PIPERACILLIN 222 NS (0.9%) 546 661 IVPB 120 NS (0.9%) 120 Medicated IV 68 197 CC - Propofol/Diprivan 68 197 Tube Feeding Flush Amount 120 30 Output: G Tube 150 Babin 1270 600 45 O2/Vent: PC 18/+5/40%, sat 96% Infusions: propofol off, 75cc/hour Current Medications: Albuterol (Ventolin 2.5 Mg/3 Ml Neb.Lisa*) 2.5 mg INH Q4H PRN PRN Reason: SOB/WHEEZING Last Admin: 06/30/17 12:52 Dose: 2.5 mg Albuterol/Ipratropium (Duoneb (Albuterol 2.5 Mg/Ipratropium 0.5 Mg)) 1 neb INH Q4H PRN PRN Reason: SOB/WHEEZING Last Admin: 07/01/17 09:20 Dose: 1 neb Amiodarone HCl (Cordarone Tab*) 200 mg NG TUBE BID LAY Last Admin: 07/03/17 20:35 Dose: 200 mg Artificial Tears (Lacrilube Oint*) 1 applic BOTH EYES Q4H PRN PRN Reason: DRY EYE Chlorhexidine Gluconate (Peridex Mouth Wash 0.12%*) 15 ml SWISH SPIT Q4H [facility] Last Admin: 07/04/17 04:13 Dose: 15 ml Famotidine (Pepcid Iv*) 20 mg IV DAILY [facility] Last Admin: 07/03/17 09:25 Dose: 20 mg Heparin Sodium (Porcine) (Heparin Flush Picc/Ml/Cvc(*)) 0 ml FLUSH 0600,1800 [facility] PRN Reason: Protocol Last Admin: 07/04/17 05:19 Dose: 1 ml Heparin Sodium (Porcine) (Heparin Vial(*)) 5,000 units SUBCUT Q8HR [facility] Last Admin: 07/04/17 05:19 Dose: 5,000 units Propofol (Diprivan*) 100 mls @ 15.513 mls/hr IV .(Initial Rate) LAY; 20 MCG/KG/ MIN PRN Reason: Protocol Last Admin: 07/04/17 02:45 Dose: 12.6 mls/hr Norepinephrine Bitartrate (Levophed 16 Mcg/Ml Premix Bag*) 4,000 mcg in 250 mls @ 18.75 mls/hr IV .INITIAL RATE [facility] PRN Reason: 5 MCG/MIN Last Admin: 07/01/17 18:44 Dose: 15 mls/hr Piperacillin Sod/Tazobactam (Sod 3.375 gm/ Sodium Chloride) 100 mls @ 25 mls/ hr IVPB Q8H [facility] Last Admin: 07/04/17 04:13 Dose: 25 mls/hr Sodium Chloride (Ns 0.9% 1000 Ml*) 1,000 mls @ 50 mls/hr IV PER RATE [facility] Insulin Human Regular (Insulin Regular(*)) 0 units SUBCUT Q4H [facility] PRN Reason: Protocol Last Admin: 07/04/17 04:13 Dose: Not Given Methylprednisolone Sodium Succinate (Solu-Medrol 125mg *) 60 mg IV DAILY [facility] Metoclopramide HCl (Reglan Iv*) 5 mg IV Q6H PRN PRN Reason: NAUSEA/VOMITING Midazolam HCl (Versed 2mg/2ml*) 2 mg IV Q1H PRN PRN Reason: TONIC CLONIC MOVEMENT Last Admin: 06/30/17 14:44 Dose: 2 mg Physical Exam: General: intubated, nonresponsive. Head: normocephalic, atraumatic HEENT: no pallor, no icterus, moist mucous membranes Neck: soft, supple, no jvd, no stridor CVS: normal rate, normal rhythm, no murmur Resp: bilateral air entry, rhonchi improved, mild rhonchi on right base only, no wheeze, no rhales, no acc muscle use Abdomen: soft, obese, nontender, nondistended, BS+ Ext: pulses+ via dopppler due to edema, warm ext, 3+ edema LE Skin: intact, no breakdown, dry/changes of chronic edema Neuro: intubated, unresponsive, off sedation; corneal reflex+ bilaterally, pupils bilaterally 1mm and sluggish reactivity; gag-, cough-; no withdrawal to painful stimuli. no further seizure activity noted. only abd hiccups noted spontaneously. Labs: Laboratory Results - last 24 hr 07/03/17 07/03/17 07/04/17 11:56 20:33 05:17 WBC 13.2 H RBC 3.23 L Hgb 9.0 L Hct 28 L MCV 86 MCH 28 MCHC 33 RDW 18 H Plt Count 277 MPV 6 L Sodium Potassium Chloride Carbon Dioxide Anion Gap BUN Creatinine Est GFR ( Amer) Est GFR (Non-Af Amer) BUN/Creatinine Ratio Glucose POC Glucose (mg/dL) 143 H 129 H Calcium Total Bilirubin AST ALT Alkaline Phosphatase Total Protein Albumin Globulin Albumin/Globulin Ratio 07/04/17 05:17 WBC RBC Hgb Hct MCV MCH MCHC RDW Plt Count MPV Sodium 135 Potassium 3.6 Chloride 103 Carbon Dioxide 26 Anion Gap 6 BUN 44 H Creatinine 1.84 H Est GFR ( Amer) 47.6 Est GFR (Non-Af Amer) 37.0 BUN/Creatinine Ratio 23.9 H Glucose 102 H POC Glucose (mg/dL) Calcium 8.2 L Total Bilirubin 0.60 AST 45 H ALT 28 Alkaline Phosphatase 61 Total Protein 5.2 L Albumin 2.4 L Globulin 2.8 Albumin/Globulin Ratio 0.9 L Imaging: CXR 06/29 [facility] [place] ER ett above sandra, ?congestion mild, left sided pleural effusion + which is moderate in size, unclear if infiltrate inderlying. No PTX present. CT head - mild cerebral edema+, no hemorrhage, diffuse anoxic injury suspected ( official reviewed) CT chest/abd/pelvis - moderate left pleural effusion partially loculated; bilateral infiltrates, short segment of dissection in infrarenal mid abd aorta ( official reviewed) CXR 06/30 - ett above sandra, left pleural effusion wtih underlying atelectasis/ infiltrate. right side is clear without effusion/infiltrate. cxr 07/01 - ett above sandra; no clear infiltrate; left small effusion noted. ct brain 07/01 - cerebral edema + but slight improvement from priro 06/29 study. anoxic brain injury+ Assessment: 67y M pmhx of CAD and VT, s/p CABG 04/2017 from [facility]; brought in via [facility] as OOH Cardiac Arrest, presented bradycardic and hypoxic. -Cardiac Arrest, PEA vs bradycardic; s/p therap hypothermia 06/29 -Acute Hypoxic Respiratory Failure -Hypoxic-ischemic encephalopathy -ALEXANDRA, likely from hypoxic/ischemic ATN -Left Pleural effusion, partially loculated; s/p thora 06/30 left -r/o pneumonia -Pulmonary Congestion -short infrarenal mid aortic dissection -Ventricular Tachycardia -CAD s/p CABG -Ischemic CMP; now with acute moderate LV systolic dysfunction, likely post arrest stunning Plan: Neuro- post arrest, s/p hypothermia protocol. off propofol. no myoclonic activity noted. No improvement in neuro exam, still severe neurological injury, some brainstem reflexes present, day 5 post arrest and no improvement. Neurochecks q2h. Avoid fevers/hypercapnea. Neurology following. CVS- hemodyn stable, off pressors. art line in place. NS 50cc/hour. NSR. No VT. ECHO noted as with moderate LV systolic dysfunction with WMA. Noted small infrarenal dissection, distal pulses intact, hold on intervention/vasc consult at this time given severe neurological insult. Vascular/pulse checks. Right femoral cooling cathetor/triple lumen cathetor in place. Resp- on PC 30%, peep 5. Sedation for vent synchrony yesterday but none required at this time. on Spont mode becomes tachypneic and shallow/rapid breathing with tv <100 with PS/peep. Dec Steroids. Bronchodilators prn. Minimal/ no secretions being suctioned. ID- wbc 13, euthermic. sputum cx with morganella and staph aureus. Cont Zosyn( day#6). GI- Nepro feeds off, doesnt tolerate well. reglan 5mg iv q8h. pepcid iv. Renal- ALEXANDRA, nonoliguric, Cr 1.8. Ischemic ATN from cardiac arrest. Making urine but slowing now. Replete K, keep K>4. IVF NS 50cc/hr Heme- hg stable. plt stable. no bleeding. DVT prophylaxis. Endo- glycemic control, target BS<200 Musculsk- none Wounds- pressure ulcer prophylaxis; small blisters noted on bilateral buttocks. wound care. Nutrition- restart nepro DVT prophylaxis: LE compression, heparin sq GI prophylaxis: Pepcid Central Line: right fem, 06/29 Arterial Line: right fem, 06/29 Babin Cathetor: yes Disposition: ICU post cardiac arrest, hypoxic respiratory failure, hypoxic encephelopathy Code Status: DNR at length discussion with sister (jamar schneider) and brother yesterday on current neurological status. They weighed options about continued care, tracheostomy in setting of severe neuro injury and unlikelihood of recovery. They decided that based on what patient would have wanted and wished for, he would not want to be stuck on a ventilator/trach. THey understand the quality of life on a vent. Based on neuro exam, he may plateau at this status or even progress. They decided about compassionate weaning from the ventilator. We discussed that removal of breathing tube would occur and if he becomes short of breath or in distress, comfort measures with morphine to help relieve distress would be given. They understand this process would lead to . He would likely become hypoxic and eventual cardiac arrest. Sister and brother both agreed to have this done in best interest of the patient and his desire from what they understand knowing him. Jamar is the Surrogate decision maker at this time. I discussed this again this morning on the phone with her. She agreed to have compassionate weaning done this morning. Her and her brother would not like to be around when weaning is done or upon his . Based on their decision, current medical condition of the patient, I do agree with their decision as patient would have a very poor quality of life in a state of severe neurological injury. We will compassionately wean patient from the ventilator. PRN morphine/dilaudid for respiratory distress. Total Critical Care time is 35 minutes, excluding procedures/teaching Satinder Westbrook MD Insolvency Consultant (Electronically Signed)
[2017-07-04] MEDS ORDERED: HYDROmorphone* 1 MG/ML 1 ML SYR IV SLOW PU PRN (11:52)
--- NOTE | 2017-07-04 12:07 | DS ---
Discharge Summary Patient Name: Elder Patiño Date of Admission: 06/29/2017 Date of Discharge: 07/04/2017 Attending: Dr Satinder Westbrook Consultants: Dr Marya Velazquez (neurology) Admitting Diagnoses: 1) Out of Hospital Cardiac Arrest 2) Acute Hypoxic Respiratory Failure Discharge Diagnoses: 1) Out of Hospital Cardiac Arrest 2) Acute Hypoxic Respiratory Failure 3) Hypoxic-Ischemic Encephelopathy 4) Acute Kidney Injury, Ischemic ATN 5) Mid abdominal, infra-renal Aortic Dissection HPI/Hospital Course: 67y M pmhx of CAD and VT; recently admitted 04/2017 for VT and CAD, found to have LM disease and sent to [facility] for open-heart surgery, now s/p CABG. Patient comes in to [facility] via [facility]. He was at home in yard, waiting for ride to go to physician appt, when patient was witnessed collapsed. EMS was called, found pulseless, CPR/ACLS started and ROSC obtained, IV access obtained, bagged to ER. In [place] he was found bradycardic, sats in upper 80s , intubated, then lost pulse again, started CPR, was bradycardic, ROSC obtained , dopamine started. Downtime in ER of [facility] ~5 minutes. He has been unresponsive, on the vent, sats in upper 80s to low 90s. Transferred to [facility] now , intubated, unresponsive, with episode gnerealized tonic-clonic jerking movements. He was on dopamine, which was held for BP >40s, HR 70-80s. Once at [facility], patient admitted to ICU, met criteria for therapeutic Hypothermia. He was placed on hypothermia protocol, sedated, ventilation managed. CT brain prior to cooling demonstrated cerebral edema. Post hypothermia, intermittent myoclonic activity did occur but resolved. Eventually Midazolam infusion was not required but intermittent propofol for vent synchrony was needed. Neurologically he did not improved. He maintained pinpoint pupils, intermittent corneal reflexes, no gag reflex, no cough reflex, loss of withdrawal to painful stimuli. No significant spontaneous respirations on spontaneous mode on the ventilator. Repeat CT brain demonstrated mildly improving cerebral edema. Neurology consult obtained which confirmed also severe neurological injury with very little brain stem function. Discussion held with family, sister and brother, all medical conditions discussed, advanced neurological injury from cardiac arrest. They decided on compassionate weaning from the ventilator based on no improvement and desires that patient would never want to be in this state for long term care phlebotomist, especially with this poor quality of life if he were to have a tracheostomy. I agreed with their decision. Family did not wish to be around when extubation occurred. Compassionate weaning from the vent with comfort measures were started , patient extubated 07/04/2017. Patient became asystolic shortly after, apneic; pronounced at 1322 on 07/04/2017 Procedures/Imaging: Chest Xray, CTA of Chest/abdomen/pelvis, Therapeutic Hypothermia, CT of Brain Laboratory/Data: See chart Discharge Medications: none Diet: none Activity: none Condition upon discharge: Disposition: 07/04/2017 at 1322 Code Status: DNR Total Discharge time <30minutes Satinder Westbrook MD Automatic Oven Operator (Electronically Signed)
--- NOTE | 2017-07-04 14:33 | PN ---
Progress Note - Progress Note Date of Service: 07/04/17 Note: Compassionate weaning occurred ~1306 Patient extubated, all drips turned off. Patient remained almost apneic after extubation. Patient became asystole, no spont respirations, no pulsatility on arterial line. Patient pronounced at 1322 on 07/04/2017 Sister called but no answer, Nursing has left a message to call back. They were aware of compassionate weaning, see previous note. Satinder Westbrook Neuro Intensivist Physician
== END 2017-07-04 13:22 | disposition expired | DRG 296 ==
LOC: ED 11:43 → ICU 12:33
PROVIDERS: ADMIT Internal Medicine Critical Care Medicine; ATTEND Internal Medicine Critical Care Medicine
PROC: 5A1955Z Respiratory Ventilation, Greater than 96 Consecutive Hours (ICD-10-PCS; principal; 2017-06-29)
PROC: 06HM33Z Insertion of Infusion Device into Right Femoral Vein, Percutaneous Approach (ICD-10-PCS; 2017-06-29)
PROC: B54BZZA Ultrasonography of Right Lower Extremity Veins, Guidance (ICD-10-PCS; 2017-06-29)
PROC: 04HK33Z Insertion of Infusion Device into Right Femoral Artery, Percutaneous Approach (ICD-10-PCS; 2017-06-29)
PROC: 3E033XZ Introduction of Vasopressor into Peripheral Vein, Percutaneous Approach (ICD-10-PCS; 2017-06-30)
PROC: 0W9B3ZZ Drainage of Left Pleural Cavity, Percutaneous Approach (ICD-10-PCS; 2017-06-30)
PROC: 0BP1XDZ Removal of Intraluminal Device from Trachea, External Approach (ICD-10-PCS; 2017-07-04)
DX: I46.9 Cardiac arrest, cause unspecified (principal); J96.01 Acute respiratory failure with hypoxia; I71.02 Dissection of abdominal aorta; G93.6 Cerebral edema; G93.1 Anoxic brain damage, not elsewhere classified; J90 Pleural effusion, not elsewhere classified; J18.9 Pneumonia, unspecified organism; N17.9 Acute kidney failure, unspecified; Z68.41 Body mass index [BMI] 40.0-44.9, adult; T68.XXXA Hypothermia, initial encounter; I48.91 Unspecified atrial fibrillation; I25.10 Atherosclerotic heart disease of native coronary artery without angina pectoris; I45.10 Unspecified right bundle-branch block; G25.3 Myoclonus; E66.01 Morbid (severe) obesity due to excess calories; I47.2 Ventricular tachycardia; F17.210 Nicotine dependence, cigarettes, uncomplicated; I25.5 Ischemic cardiomyopathy; R00.1 Bradycardia, unspecified; Z66 Do not resuscitate; B95.61 Methicillin susceptible Staphylococcus aureus infection as the cause of diseases classified elsewhere; B96.4 Proteus (mirabilis) (morganii) as the cause of diseases classified elsewhere; Z95.1 Presence of aortocoronary bypass graft; Z82.49 Family history of ischemic heart disease and other diseases of the circulatory system
CPT/HCPCS: 36415; 36600; 70450; 71010; 71275; 74177; 80048; 80053; 80202; 81003; 81015; 82140; 82150; 82803; 82945; 83605; 83615; 83735; 83880; 83986; 84157; 84439; 84443; 84481; 84484; 85025; 85027; 85610; 87040; 87070; 87077; 87186; 87205; 87641; 89051; 93005; 93306; 94002; 94003; 94640; 94760; A9270-GY; C8929; J1170; J1265; J1644; J2060; J2250; J2543; J2704; J2930; J2997; J3370; P9045; Q9967